=== PATIENT | female | born 1935 | race Caucasian/White ===

== ENCOUNTER 2016-08-07 14:50 | Observation (INO) | payer MEDICARE, BC ==
[2016-08-07] MEDS ORDERED: Diltiazem 25 MG/5 ML SDV IVPUSH ONE (15:24)
--- NOTE | 2016-08-07 15:26 | EDM.PDOC ---
ED HPI GENERAL MEDICAL PROBLEM - General Chief Complaint: Respiratory Problem Stated Complaint: SOB Time Seen by Provider: 08/07/16 15:25 Source of Information: Reports: Patient History Limitations: Reports: Respiratory Distress - History of Present Illness INITIAL COMMENTS - FREE TEXT/NARRATIVE: 81 y.o.w.f. with a h/o CHF, Intermittant a fib with RVR while symbicort inhaler , came by herself to the ed due to SOB. Inhales will not work. As the patient arrived here in the ed, pt was in a fib with RVR, RR was elevated, her Pulse ox was 97% on RA. No CP. Pt takes a Lasix as "needed". Onset: Sudden Onset Date: 08/07/16 Onset Time: 08:00 Duration: Hour(s):, Day(s):, Getting Worse Location: Reports: Chest Quality: Reports: Same as Previous Episode Improves with: Reports: Medication Worsens with: Reports: Movement Associated Symptoms: Reports: Shortness of Breath, Weakness - Related Data Allergies Allergy/AdvReac Type Severity Reaction Status Date / Time No Known Allergies Allergy Verified 08/07/16 15:25 Home Meds: Home Meds Fluticasone Propionate [Flonase] 2 spray INH ASDIRECTED PRN 06/14/13 [History] Albuterol Sulfate [Proair Hfa] 2 puff Q4H PRN 07/26/15 [History] Aspirin [Ecotrin] 325 mg PO DAILY PRN 07/26/15 [History] Budesonide/Formoterol Fumarate [Symbicort 160-4.5 Mcg Inhaler] 2 inh PO BID PRN 08/07/16 [History] Past Medical History HEENT History: Reports: Impaired Vision Cardiovascular History: Reports: Afib, Heart Murmur, Hypertension Other Cardiovascular History: hx 'leaky heart valves' Respiratory History: Reports: Asthma Gastrointestinal History: Reports: Cholelithiasis, Hemorrhoids, Other (See Below ) Other Gastrointestinal History: hx rectal bleeding from hemorrhoids Genitourinary History: Reports: UTI, Recurrent, Other (See Below) Other Genitourinary History: hx prolapsed bladder 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: Musculoskeletal History: Reports: Arthritis, Back Pain, Chronic, Fracture, Osteoarthritis Endocrine/Metabolic History: Reports: Obesity/BMI 30+ Hematologic History: Reports: Anemia, Blood Transfusion(s) - Infectious Disease History Infectious Disease History: Reports: Chicken Pox, Measles - Past Surgical History Female Surgical History: Reports: Hysterectomy, Salpingo-Oophorectomy Musculoskeletal Surgical History: Reports: Hip Replacement, ORIF, Other (See Below) Social & Family History - Family History Family Medical History: Noncontributory - Tobacco Use Smoking Status *Q: Never Smoker Second Hand Smoke Exposure: Yes - Caffeine Use Caffeine Use: Reports: Coffee - Alcohol Use Days Per Week of Alcohol Use: 0 - Recreational Drug Use Recreational Drug Use: No - Living Situation & Occupation Living situation: Reports: Occupation: Retired ED ROS GENERAL - Review of Systems Review Of Systems: See Below Constitutional: Reports: Weakness HEENT: Reports: No Symptoms, Ear Pain Respiratory: Reports: Shortness of Breath Cardiovascular: Reports: Dyspnea on Exertion, Palpitations Endocrine: Reports: No Symptoms GI/Abdominal: Reports: No Symptoms : Reports: No Symptoms Musculoskeletal: Reports: No Symptoms Skin: Reports: No Symptoms Neurological: Reports: No Symptoms Psychiatric: Reports: No Symptoms Hematologic/Lymphatic: Reports: No Symptoms Immunologic: Reports: No Symptoms ED EXAM, GENERAL - Physical Exam Exam: See Below Exam Limited By: No Limitations General Appearance: Alert, WD/WN, Moderate Distress Eye Exam: Bilateral Eye: Normal Inspection Ears: Normal External Exam Ear Exam: Bilateral Ear: Auricle Normal Nose: Normal Inspection Throat/Mouth: Normal Inspection, Normal Lips Head: Atraumatic, Normocephalic Neck: Normal Inspection, Supple Respiratory/Chest: Respiratory Distress, Decreased Breath Sounds, Crackles, Other (Dullness to percussuin R lower lung) Cardiovascular: Normal Peripheral Pulses, Regular Rate, Rhythm, No Edema, No Murmur, Irregularly Irregular Peripheral Pulses: 1+: Femoral (L), Femoral (R) GI/Abdominal: Normal Bowel Sounds, Soft, Non-Tender (Female) Exam: Deferred Rectal (Female) Exam: Deferred Back Exam: Normal Inspection, Full Range of Motion Extremities: Normal Range of Motion, Pedal Edema Neurological: Alert, Oriented, CN II-XII Intact, Normal Cognition Psychiatric: Normal Affect, Normal Mood Skin Exam: Warm, Dry, Intact, Normal Color Lymphatic: No Adenopathy EKG INTERPRETATION EKG Date: 08/07/16 Time: 15:20 Rhythm: A-Fib Rate (Beats/Min): 130 Purdin: Normal P-Wave: Absent QRS: Normal ST-T: Normal QT: Normal Comparison: NA - No Prior EKG EKG Interpretation Comments: After cardiacem was given, rate changed to 85 BPM Irr Irr beat. Course - Vital Signs Text/Narrative:: 81 y.o.w.f. with a h/o CHF, Intermittant a fib with RVR while symbicort inhaler , came by herself to the ed due to SOB. Inhales will not work. As the patient arrived here in the ed, pt was in a fib with RVR, RR was elevated, her Pulse ox was 97% on RA. No CP. Pt takes a Lasix as "needed". No other acute medical issues. PE: A fib with RVR, CHF Impression: CHF, Pleural effusion ECG: A fib with RVR 135 bpm, secon EKG after tx: A fib ith a rate of 85 bpm Labs: BNP 527 Tropnin 0.01 INR 1.16 Impression: A fib with RVR, possibl;e symbicort inh use related, CHF Tx: Cardiacem, Lasix ond O2 Reexam: Inproved Plan: Admit to [facility]. Last Recorded V/S: Last Vital Signs Temp 36.3 C 08/07/16 15:25 Pulse 134 H 08/07/16 15:25 Resp 29 H 08/07/16 15:25 BP 128/84 08/07/16 15:31 Pulse Ox 95 08/07/16 15:25 - Orders/Labs/Meds Orders: Active Orders 24 hr Category Date Time Status EKG Documentation Completion [RC] ASDIRECTED Care 08/07/16 15:14 Active CXR [Chest 1V Frontal] [CR] Stat Exams 08/07/16 15:13 Taken Sodium Chloride 0.9% [Saline Flush] Med 08/07/16 15:32 Active 10 ml FLUSH ASDIRECTED PRN Saline Lock Insert [OM.PC] Routine Oth 08/07/16 15:32 Ordered EKG 12 Lead [EK] Routine Ther 08/07/16 15:13 Ordered Medication Orders Albuterol/Ipratropium (Duoneb 3.0-0.5 Mg/3 Ml) 3 ml INH ONETIME PRN PRN Reason: Shortness Of Breath/wheezing Ondansetron HCl (Zofran) 4 mg IV Q4H PRN PRN Reason: Nausea/Vomiting Sodium Chloride (Saline Flush) 10 ml FLUSH ASDIRECTED PRN PRN Reason: Keep Vein Open Last Admin: 08/07/16 15:34 Dose: 10 ml Admin: 08/07/16 15:33 Dose: 10 ml Sodium Chloride (Saline Flush) 10 ml FLUSH ASDIRECTED PRN PRN Reason: Keep Vein Open Labs: Laboratory Tests 08/07/16 08/07/16 08/07/16 Range/Units 15:30 15:30 15:30 WBC 6.8 (4.5-12.0) X10-3/uL RBC 4.99 (3.23-5.20) x10(6)uL Hgb 14.1 (11.5-15.5) g/dL Hct 42.5 (30.0-51.3) % MCV 85.2 (80-96) fL MCH 28.2 (27.7-33.6) pg MCHC 33.1 (32.2-35.4) g/dL RDW 16.2 H (11.5-15.5) % Plt Count 235 (125-369) X10(3)uL MPV 10.2 (7.4-10.4) fL Neut % (Auto) 80.6 (46-82) % Lymph % (Auto) 9.0 L (13-37) % [place] % (Auto) 6.5 (4-12) % Eos % (Auto) 2 (1.0-5.0) % Baso % (Auto) 2 (0-2) % Neut # (Auto) 5.5 (1.6-8.3) # Lymph # (Auto) 0.6 (0.6-5.0) # [place] # (Auto) 0.4 (0.0-1.3) # Eos # (Auto) 0.2 (0.0-0.8) # Baso # (Auto) 0.1 (0.0-0.2) # PT 11.7 H (8.7-11.1) INR 1.16 H (0.89-1.13) Sodium 138 (135-145) mmol/L Potassium 4.0 (3.5-5.3) mmol/L Chloride 108 (100-110) mmol/L Carbon Dioxide 20 L (23-29) mmol/L BUN 12 (8-23) mg/dL Creatinine 0.7 (0.6-1.3) mg/dL Est Cr Clr Drug Dosing TNP Estimated GFR (MDRD) > 60 (>60) BUN/Creatinine Ratio 17.1 (9-20) Glucose 121 H (80-116) mg/dL Calcium 9.5 (8.6-10.2) mg/dL Troponin I (0.02-0.06) NG/ML B-Natriuretic Peptide (0-100) pg/mL 08/07/16 08/07/16 Range/Units 15:30 15:30 WBC (4.5-12.0) X10-3/uL RBC (3.23-5.20) x10(6)uL Hgb (11.5-15.5) g/dL Hct (30.0-51.3) % MCV (80-96) fL MCH (27.7-33.6) pg MCHC (32.2-35.4) g/dL RDW (11.5-15.5) % Plt Count (125-369) X10(3)uL MPV (7.4-10.4) fL Neut % (Auto) (46-82) % Lymph % (Auto) (13-37) % [place] % (Auto) (4-12) % Eos % (Auto) (1.0-5.0) % Baso % (Auto) (0-2) % Neut # (Auto) (1.6-8.3) # Lymph # (Auto) (0.6-5.0) # [place] # (Auto) (0.0-1.3) # Eos # (Auto) (0.0-0.8) # Baso # (Auto) (0.0-0.2) # PT (8.7-11.1) INR (0.89-1.13) Sodium (135-145) mmol/L Potassium (3.5-5.3) mmol/L Chloride (100-110) mmol/L Carbon Dioxide (23-29) mmol/L BUN (8-23) mg/dL Creatinine (0.6-1.3) mg/dL Est Cr Clr Drug Dosing Estimated GFR (MDRD) (>60) BUN/Creatinine Ratio (9-20) Glucose (80-116) mg/dL Calcium (8.6-10.2) mg/dL Troponin I < 0.01 L (0.02-0.06) NG/ML B-Natriuretic Peptide 521 H (0-100) pg/mL Meds: Medications Generic Name Dose Route Start Last Admin Trade Name Freq PRN Reason Stop Dose Admin Albuterol/Ipratropium 3 ml 08/07/16 15:48 Duoneb 3.0-0.5 Mg/3 Ml INH ONETIME PRN Shortness Of Breath/wheezing Ondansetron HCl 4 mg 08/07/16 15:48 Zofran IV Q4H PRN Nausea/Vomiting Sodium Chloride 10 ml 08/07/16 15:32 08/07/16 15:34 Saline Flush FLUSH 10 ml ASDIRECTED PRN Administration Keep Vein Open Sodium Chloride 10 ml 08/07/16 15:48 Saline Flush FLUSH ASDIRECTED PRN Keep Vein Open Discontinued Medications Generic Name Dose Route Start Last Admin Trade Name Freq PRN Reason Stop Dose Admin Diltiazem HCl 20 mg 08/07/16 15:24 08/07/16 15:31 Diltiazem IVPUSH 08/07/16 15:25 20 mg ONETIME ONE Administration Furosemide 20 mg 08/07/16 16:08 Lasix IVPUSH 08/07/16 16:09 ONETIME ONE Departure - Departure Time of Disposition: 16:00 Disposition: Refer to Observation Condition: Fair Clinical Impression: Atrial fib/flutter, transient, Pleural effusion CHF (congestive heart failure) Qualifiers: Congestive heart failure type: unspecified congestive heart failure type Congestive heart failure chronicity: chronic Qualified Code(s): I50.9 - Heart failure, unspecified - Discharge Information - My Orders Last 24 Hours: My Active Orders 08/07/16 15:13 CXR [Chest 1V Frontal] [CR] Stat EKG 12 Lead [EK] Routine 08/07/16 15:14 EKG Documentation Completion [RC] ASDIRECTED 08/07/16 15:32 Sodium Chloride 0.9% [Saline Flush] 10 ml FLUSH ASDIRECTED PRN Saline Lock Insert [OM.PC] Routine - Assessment/Plan Last 24 Hours: My Active Orders 07/01/17 15:13 CXR [Chest 1V Frontal] [CR] Stat EKG 12 Lead [EK] Routine 08/07/16 15:14 EKG Documentation Completion [RC] ASDIRECTED 08/07/16 15:32 Sodium Chloride 0.9% [Saline Flush] 10 ml FLUSH ASDIRECTED PRN Saline Lock Insert [OM.PC] Routine
[2016-08-07] MEDS: Sodium Chloride 0.9% 10 ML Syringe FLUSH PRN ×2 (15:33→15:34)
[2016-08-07] MEDS ORDERED: Sodium Chloride 0.9% 10 ML Syringe FLUSH PRN (15:48)
[2016-08-07] MEDS ORDERED: Ondansetron 4 MG/2 ML SDV IV PRN (15:48)
[2016-08-07] MEDS ORDERED: Albuterol/Ipratropium 3.0-0.5 MG/3 ML Neb Soln INH PRN (15:48)
[2016-08-07] MEDS ORDERED: Furosemide 20 MG/2 ML VIAL IVPUSH ONE (16:08)
[2016-08-07] MEDS ORDERED: Ciprofloxacin 500 MG Tab PO SCH (21:00)
[2016-08-07] MEDS: Acetaminophen 325 MG Tab PO PRN (22:31)
[2016-08-08] MEDS: Acetaminophen 325 MG Tab PO PRN (02:51)
--- NOTE | 2016-08-08 08:26 | PCM.HP ---
H&P History of Present Illness - General Date of Service: 08/08/16 Admit Problem/Dx: Admission Diagnosis/Problem Admission Diagnosis/Problem Afib, Atrial fibrillation Source of Information: Patient, Old Records - History of Present Illness Initial Comments - Free Text/Narative: 81-year-old female who has a history of asthma. Presented to the ER complaining of shortness of breath. Couple days. Insidious onset note history of any cough. She also has a history of atrial fibrillation and congestive heart failure that has previously been stable and hypertension that is well controlled. She denied any chest pain fever or chills. I saw her in the clinic and started on Symbicort recently but she also uses albuterol inhaler on a daily basis - Related Data Allergies/Adverse Reactions: Allergies Allergy/AdvReac Type Severity Reaction Status Date / Time No Known Allergies Allergy Verified 08/07/16 15:25 Home Medications: Home Meds Fluticasone Propionate [Flonase] 2 spray INH ASDIRECTED PRN 06/14/13 [History] Albuterol Sulfate [Proair Hfa] 2 puff Q4H PRN 07/26/15 [History] Aspirin [Ecotrin] 325 mg PO DAILY PRN 07/26/15 [History] Budesonide/Formoterol Fumarate [Symbicort 160-4.5 Mcg Inhaler] 2 inh PO BID PRN 08/07/16 [History] Past Medical History HEENT History: Reports: Impaired Vision Other HEENT History: Wears reading glasses. Cardiovascular History: Reports: Afib, Heart Murmur, Hypertension Other Cardiovascular History: hx 'leaky heart valves' Respiratory History: Reports: Asthma Other Respiratory History: States she has had asthma since she was a child. 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: Musculoskeletal History: Reports: Arthritis, Back Pain, Chronic, Fracture, Osteoarthritis Neurological History: Reports: None Psychiatric History: Reports: None Endocrine/Metabolic History: Reports: Obesity/BMI 30+ Hematologic History: Reports: Anemia, Blood Transfusion(s) Immunologic History: Reports: None Oncologic (Cancer) History: Reports: None Dermatologic History: Reports: None - Infectious Disease History Infectious Disease History: Reports: Chicken Pox, Measles - Past Surgical History Female Surgical History: Reports: Hysterectomy, Salpingo-Oophorectomy Musculoskeletal Surgical History: Reports: Hip Replacement, ORIF, Other (See Below) Social & Family History - Family History Family Medical History: Noncontributory - Tobacco Use Smoking Status *Q: Never Smoker Second Hand Smoke Exposure: Yes - Caffeine Use Caffeine Use: Reports: Coffee - Alcohol Use Days Per Week of Alcohol Use: 0 - Recreational Drug Use Recreational Drug Use: No - Living Situation & Occupation Living situation: Reports: Occupation: Retired H&P Review of Systems - Review of Systems: Review Of Systems: ROS reveals no pertinent complaints other than HPI. Exam - Exam Exam: See Below - Vital Signs Vital Signs: Last Vital Signs Temp 97.7 F 08/07/16 23:46 Pulse 102 H 08/08/16 05:50 Resp 18 08/08/16 04:00 BP 113/85 08/07/16 23:46 Pulse Ox 99 08/08/16 05:50 Weight: 84.686 kg - Exam Quality Assessment: Supplemental Oxygen General: Alert, Oriented, 4 HEENT: PERRLA, Hearing Intact, Mucosa Moist & [place], Nares Patent, Normal Nasal Septum, Posterior Pharynx Clear, Conjunctiva Clear, EOMI, EACs Clear, TMs Clear Neck: Supple, Trachea Midline, 2 Lungs: Crackles, Rales Cardiovascular: Regular Rate, Regular Rhythm Abdomen: Normal Bowel Sounds, Soft (Female) Exam: Deferred Rectal (Female) Exam: Deferred Back Exam: Normal Inspection, Full Range of Motion, NT Extremities: Edema Skin: Warm, Dry, Intact Neurological: Cranial Nerves Intact, Reflexes Equal Bilateral Neuro Extensive - Mental Status: Alert, Oriented x3, Normal Mood/Affect, Normal Cognition Neuro Extensive - Motor, Sensory, Reflexes: CN II-XII Intact, Normal Gait, Normal Reflexes Psychiatric: Alert, Normal Affect, Normal Mood - Patient Data Lab Results Last 24 hrs: Laboratory Results - last 24 hr 08/07/16 Range/Units 18:40 Urine Color Yellow (YELLOW) Urine Appearance Cloudy (CLEAR) Urine pH 5.0 (5.0-6.5) Ur Specific [place] 1.010 (1.010-1.025) Urine Protein Negative (NEGATIVE) mg/dL Urine Glucose (UA) Normal (NEGATIVE) mg/dL Urine Ketones Negative (NEGATIVE) mg/dL Urine Occult Blood Large H (NEGATIVE) Urine Nitrite Negative (NEGATIVE) Urine Bilirubin Negative (NEGATIVE) Urine Urobilinogen Normal (NEGATIVE) mg/dL Ur Leukocyte Esterase Large H (NEGATIVE) Urine RBC 10-20 H (0) Urine WBC >100 H (0) Ur Squamous Epith Cells Few H (NS,R,O) Urine Bacteria Moderate H (NS) Result Diagrams: 08/07/16 15:30 08/07/16 15:30 Imaging Impressions Last 24 hrs: CXR-effusion L EKG INTERPRETATION Rhythm: A-Fib *Q Meaningful Use (ADM) - VTE *Q VTE Criteria *Q: - Stroke *Q Stroke Criteria *Q: - AMI *Q AMI Criteria *Q: - Problem List (1) Atrial fib/flutter, transient SNOMED Code(s): 155327886 ICD Code: [id number] - Status: Acute Current Visit: Yes (2) HTN (hypertension) SNOMED Code(s): 36277306 ICD Code: I10 - ESSENTIAL (PRIMARY) HYPERTENSION Status: Acute Current Visit: Yes Qualifiers: Hypertension type: essential hypertension Qualified Code(s): I10 - Essential (primary) hypertension (3) Asthma attack SNOMED Code(s): 646491672 ICD Code: J45.901 - UNSPECIFIED ASTHMA WITH (ACUTE) EXACERBATION Status: Acute Current Visit: Yes (4) CHF (congestive heart failure) SNOMED Code(s): 49952807 ICD Code: I50.9 - HEART FAILURE, UNSPECIFIED Status: Acute Current Visit : Yes Qualifiers: Congestive heart failure type: unspecified congestive heart failure type Congestive heart failure chronicity: chronic Qualified Code(s): I50.9 - Heart failure, unspecified Problem List Initiated/Reviewed/Updated: Yes Orders Last 24hrs: Active Orders 24 hr Category Date Time Status Telemetry Monitoring [Cardiac Monitoring] [RC] 00,08,16 Care 08/07/16 15:58 Active CULTURE URINE [RM] Routine Lab 08/07/16 18:40 Received Acetaminophen [Tylenol] Med 08/07/16 22:11 Active 650 mg PO Q4H PRN Ciprofloxacin [Ciprofloxacin HCl] Med 08/07/16 21:00 Active 500 mg PO BID Code Status [Resuscitation Status] Routine Resus Stat 08/07/16 16:09 Ordered EKG 12 Lead [EK] Routine Ther 08/07/16 16:17 Ordered Medication Orders Acetaminophen (Tylenol) 650 mg PO Q4H PRN PRN Reason: Pain/Fever Last Admin: 08/08/16 02:51 Dose: 650 mg Admin: 08/07/16 22:31 Dose: 650 mg Albuterol/Ipratropium (Duoneb 3.0-0.5 Mg/3 Ml) 3 ml INH ONETIME PRN PRN Reason: Shortness Of Breath/wheezing Ciprofloxacin (Ciprofloxacin Hcl) 500 mg PO BID ELLIOT Last Admin: 08/07/16 21:49 Dose: 500 mg Ondansetron HCl (Zofran) 4 mg IV Q4H PRN PRN Reason: Nausea/Vomiting Sodium Chloride (Saline Flush) 10 ml FLUSH ASDIRECTED PRN PRN Reason: Keep Vein Open Last Admin: 08/07/16 15:34 Dose: 10 ml Admin: 08/07/16 15:33 Dose: 10 ml Sodium Chloride (Saline Flush) 10 ml FLUSH ASDIRECTED PRN PRN Reason: Keep Vein Open Assessment/Plan Comment:: My plan is to keep her for another day or so for diuresis, and I'll also start oral prednisone. I will order for TSH, and an echocardiogram to be done perhaps an ambulatory basis. I also discussed anticoagulation and will start the patient on Xarelto.
[2016-08-08] MEDS: Furosemide 20 MG/2 ML VIAL IVPUSH SCH ×2 (09:19→14:25)
[2016-08-08] MEDS: methylPREDNISolone Sodium Succinate 125 MG/2 ML SDV IVPUSH SCH ×2 (09:20→16:30)
[2016-08-08] MEDS: Sodium Chloride 0.9% 10 ML Syringe FLUSH PRN (09:22)
[2016-08-08 13:52] VITALS: BP 111/72
[2016-08-08] MEDS ORDERED: Rivaroxaban 10 MG Tab PO SCH (18:00)
--- NOTE | 2016-08-08 21:29 | DISCH ---
DISCHARGE DATE: 08/08/2016 REASON FOR ADMISSION: 1. Shortness of breath. 2. Asthma. 3. atrial fibrillation. 4. Hypertension. 5. Congestive heart failure. DISCHARGE DIAGNOSES: 1. Shortness of breath. 2. Asthma. 3. atrial fibrillation. 4. Hypertension. 5. Congestive heart failure. BRIEF HISTORY AND HOSPITAL COURSE: An 81-year-old female who was brought in with shortness of breath and cough, known to have asthma, was found to have a CHF and atrial fibrillation with rapid ventricular response, was given Cardizem 1 time, which seemed to help her symptoms, however, the next day, she still had some shortness of breath and chest x-ray revealed pleural effusion thought to be due to CHF. I gave her some Lasix and she diuresed very well. By the afternoon, she still had tachycardia about 150 and she declined all medical interventions. I discharged against medical advice and discharged on Cardizem orally 180 mg and 40 mg of Lasix once a day and Xarelto 20 mg a day. I would like her to see me in the office on Tuesday. I spent more than 35 minutes in the discharge of the patient. /[id number] TON/[place]
--- NOTE | 2016-08-09 11:23 | CR ---
INDICATION: Short of breath. CHEST: Two frontal views, AP upright, were obtained, 08/07/2016, and compared with 02/07/2016 and 07/26/2015, revealing very poor inspiration which emphasizes markings. The heart is enlarged. The upper lung field pulmonary vasculature is prominent. Interstitial and alveolar infiltration is noted, compatible with interstitial and alveolar (acute) pulmonary edema. Bilateral pleural effusions of small size are suggested. The heart is enlarged. The aorta is tortuous and calcified. Overlying EKG leads are noted. IMPRESSION: Findings are compatible with CHF with acute pulmonary edema, although aspiration pneumonia or other etiology cannot be excluded. MTDD
== END 2016-08-08 17:57 | disposition left against medical advice (07) ==
LOC: FB.ED 14:50 → FB.MS 15:48
PROVIDERS: ADMIT Family Medicine; ATTEND Family Medicine
DX: R06.02 Shortness of breath (principal); J45.909 Unspecified asthma, uncomplicated; I48.91 Unspecified atrial fibrillation; I10 Essential (primary) hypertension; I50.9 Heart failure, unspecified; E66.9 Obesity, unspecified; Z79.82 Long term (current) use of aspirin; Z79.899 Other long term (current) drug therapy; Z68.30 Body mass index [BMI] 30.0-30.9, adult; Z90.710 Acquired absence of both cervix and uterus; Z96.649 Presence of unspecified artificial hip joint
CPT/HCPCS: 36415; 71010; 80048; 81001; 83880; 84484; 85025; 85610; 87086; 93005; 96374; 99285; A9270; J1940; J2930; J7050; 96375; 96376; 99220; 99223; G0378; J3490

== ENCOUNTER 2017-02-02 06:36 | Emergency (ER) | payer MEDICARE, BC ==
--- NOTE | 2017-02-02 07:13 | EDM.PDOC ---
ED HPI GENERAL MEDICAL PROBLEM - General Chief Complaint: Gastrointestinal Problem Stated Complaint: RECTAL BLEEDING /AFID Time Seen by Provider: 02/02/17 06:46 Source of Information: Reports: Patient (PV) History Limitations: Reports: No Limitations - History of Present Illness INITIAL COMMENTS - FREE TEXT/NARRATIVE: 81 y.o.w.f with h/o a fib, on ASA, came to the ed because she passed bloody stool all night long. Pt had similar symptoms a year ago when she was transported by EMS to [facility], undergoing a sigmoidoscopy. She was told she has internal Hemorrhoids and received blood transfusions. No procedure or surgery was performed at that time. She was doing fin till last night when she noticed again blood in her stool. No N/V, no Dizziness or lightheadedness or any other acute medical issues. BP 121/83 Tep 34.7 pulse 61 (afib) RR 20 Pulse ox 97% on RA. Onset Date: 02/01/17 Onset Time: 14:00 Duration: Hour(s):, Intermittent Location: Reports: Abdomen Quality: Reports: Other (blood in stool, no pain) Severity: Mild Improves with: Reports: Rest Worsens with: Reports: Movement Context: Reports: Other (rectal pleed?) Associated Symptoms: Reports: No Other Symptoms - Related Data Allergies Allergy/AdvReac Type Severity Reaction Status Date / Time No Known Allergies Allergy Verified 02/02/17 06:45 Home Meds: Home Meds Fluticasone Propionate [Flonase] 2 spray INH ASDIRECTED PRN 06/14/13 [History] Albuterol Sulfate [Proair Hfa] 2 puff Q4H PRN 07/26/15 [History] Aspirin [Ecotrin] 325 mg PO DAILY PRN 07/26/15 [History] Furosemide [Lasix] 40 mg PO DAILY #30 tablet 08/08/16 [Rx] Past Medical History HEENT History: Reports: Impaired Vision, Other (See Below) Other HEENT History: Wears reading glasses. Cardiovascular History: Reports: Afib, Heart Murmur, Hypertension Other Cardiovascular History: hx 'leaky heart valves' Respiratory History: Reports: Asthma, Other (See Below) Other Respiratory History: States she has had asthma since she was a child. 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: Musculoskeletal History: Reports: Arthritis, Back Pain, Chronic, Fracture, Osteoarthritis Neurological History: Reports: None Psychiatric History: Reports: None Endocrine/Metabolic History: Reports: Obesity/BMI 30+ Hematologic History: Reports: Anemia, Blood Transfusion(s) Immunologic History: Reports: None Oncologic (Cancer) History: Reports: None Dermatologic History: Reports: None - Infectious Disease History Infectious Disease History: Reports: Chicken Pox, Measles - Past Surgical History Female Surgical History: Reports: Hysterectomy, Salpingo-Oophorectomy Musculoskeletal Surgical History: Reports: Hip Replacement, ORIF, Other (See Below) Social & Family History - Family History Family Medical History: Noncontributory - Tobacco Use Smoking Status *Q: Never Smoker Second Hand Smoke Exposure: Yes - Caffeine Use Caffeine Use: Reports: Coffee, Tea - Alcohol Use Days Per Week of Alcohol Use: 0 - Recreational Drug Use Recreational Drug Use: No - Living Situation & Occupation Living situation: Reports: Occupation: Retired ED ROS GENERAL - Review of Systems Review Of Systems: See Below Constitutional: Reports: No Symptoms HEENT: Reports: No Symptoms Respiratory: Reports: No Symptoms Cardiovascular: Reports: No Symptoms Endocrine: Reports: No Symptoms GI/Abdominal: Reports: Hematochezia : Reports: No Symptoms Musculoskeletal: Reports: No Symptoms Skin: Reports: No Symptoms Neurological: Reports: No Symptoms Psychiatric: Reports: No Symptoms Hematologic/Lymphatic: Reports: No Symptoms Immunologic: Reports: No Symptoms ED EXAM, GI/ABD - Physical Exam Exam: See Below Exam Limited By: No Limitations General Appearance: Alert, WD/WN, No Apparent Distress Eyes: Bilateral: Normal Appearance Ears: Normal External Exam Nose: Normal Inspection Throat/Mouth: Normal Inspection, Normal Lips Head: Atraumatic, Normocephalic Neck: Normal Inspection, Supple, Non-Tender, Full Range of Motion Respiratory/Chest: No Respiratory Distress, Lungs Clear, Normal Breath Sounds Cardiovascular: Normal Peripheral Pulses, Regular Rate, Rhythm, No Edema, No Gallop GI/Abdominal Exam: Normal Bowel Sounds, Soft, Non-Tender, No Organomegaly (Female) Exam: Deferred Rectal (Female) Exam: Hemorrhoids (external, nonbleeding) Back Exam: Normal Inspection, Full Range of Motion Extremities: Normal Inspection, Normal Range of Motion, Non-Tender, Normal Capillary Refill Neurological: Alert, Oriented, CN II-XII Intact, Normal Cognition, Normal Gait ( walks with walker) Psychiatric: Normal Affect, Normal Mood Skin Exam: Warm, Dry, Intact Lymphatic: No Adenopathy Course - Vital Signs Text/Narrative:: 81 y.o.w.f with h/o a fib, on ASA, came to the ed because she passed bloody stool all night long. Pt had similar symptoms a year ago when she was transported by EMS to [facility], undergoing a sigmoidoscopy. She was told she has internal Hemorrhoids and received blood transfusions. No procedure or surgery was performed at that time. She was doing fin till last night when she noticed again blood in her stool. No N/V, no Dizziness or lightheadedness or any other acute medical issues. BP 121/83 Tep 34.7 pulse 61 (afib)(on arrival) RR 20 Pulse ox 97% on RA. PE: External Hemorrhoids. No active rectal bleed Labs: 13.5 HGB 13.5 HCT 40.5 Impression: External Hemorrhoids, a fib with RVR [phone]) 7.20 am Consultation: Dr. Deutsch, Surgeon: Pt can be seen at the clinic today after 8 am of Tuesday. Reexam: Pt was doing fine here in the ed deciding to see Dr. Deutsch this Tuesday. Plan: D/C with instructions Last Recorded V/S: Last Vital Signs Temp 36.5 C 02/02/17 08:15 Pulse 110 H 02/02/17 08:15 Resp 18 02/02/17 08:15 BP 109/74 02/02/17 08:15 Pulse Ox 96 02/02/17 07:19 - Orders/Labs/Meds Orders: Active Orders 24 hr Category Date Time Status EKG 12 Lead [EK] Routine Ther 02/02/17 07:25 Ordered Labs: Laboratory Tests 02/02/17 02/02/17 02/02/17 Range/Units 07:04 07:04 07:04 WBC 5.4 (4.5-12.0) X10-3/uL RBC 4.59 (3.23-5.20) x10(6)uL Hgb 13.5 (11.5-15.5) g/dL Hct 40.5 (30.0-51.3) % MCV 88.2 (80-96) fL MCH 29.3 (27.7-33.6) pg MCHC 33.2 (32.2-35.4) g/dL RDW 14.8 (11.5-15.5) % Plt Count 202 (125-369) X10(3)uL MPV 9.4 (7.4-10.4) fL Neut % (Auto) 80.0 (46-82) % Lymph % (Auto) 9.2 L (13-37) % [place] % (Auto) 7.0 (4-12) % Eos % (Auto) 2 (1.0-5.0) % Baso % (Auto) 2 (0-2) % Neut # (Auto) 4.3 (1.6-8.3) # Lymph # (Auto) 0.5 L (0.6-5.0) # [place] # (Auto) 0.4 (0.0-1.3) # Eos # (Auto) 0.1 (0.0-0.8) # Baso # (Auto) 0.1 (0.0-0.2) # PT 12.3 H (8.7-11.1) INR 1.22 H (0.89-1.13) Sodium 147 H (135-145) mmol/L Potassium 4.3 (3.5-5.3) mmol/L Chloride 107 (100-110) mmol/L Carbon Dioxide 21 (21-32) mmol/L BUN 12 (7-18) mg/dL Creatinine 0.7 (0.55-1.02) mg/dL Est Cr Clr Drug Dosing 48.16 mL/min Estimated GFR (MDRD) > 60 (>60) BUN/Creatinine Ratio 17.1 (9-20) Glucose 106 (80-116) mg/dL Calcium 9.9 (8.6-10.2) mg/dL Departure - Departure Time of Disposition: 08:05 Disposition: Home, Self-Care 01 Condition: Good Clinical Impression: External hemorrhoids - Discharge Information Referrals: Pawan Elaine MD [Primary Care Provider] - Forms: ED Department Discharge Additional Instructions: Please f/u with Dr. Deutsch at [facility] this am or Tuesday. Please come back to the ed if your symptoms get worse acutely - My Orders Last 24 Hours: My Active Orders 02/02/17 07:25 EKG 12 Lead [EK] Routine - Assessment/Plan Last 24 Hours: My Active Orders 02/02/17 07:25 EKG 12 Lead [EK] Routine
[2017-02-02 11:35] VITALS: BP 109/74
== END 2017-02-02 08:35 | disposition home or self-care (01) ==
LOC: FB.ED 06:36
DX: K64.4 Residual hemorrhoidal skin tags (principal)
CPT/HCPCS: 36415; 80048; 85025; 85610; 93005; 93010; 99283; 99284

== ENCOUNTER 2017-02-03 15:07 | Emergency (ER) | payer MEDICARE, BC ==
[2017-02-03] MEDS ORDERED: Levofloxacin 500 MG Tab PO STA (17:16)
--- NOTE | 2017-02-03 17:26 | EDM.PDOC ---
ED HPI GENERAL MEDICAL PROBLEM - General Chief Complaint: Gastrointestinal Problem Stated Complaint: RECTAL BLEEDING Time Seen by Provider: 02/03/17 15:07 Source of Information: Reports: Patient History Limitations: Reports: No Limitations, Physical Impairment - History of Present Illness INITIAL COMMENTS - FREE TEXT/NARRATIVE: 81 y.o.w.f with H/O ext hemorrhoids and CHF came again to the ed this evening after she was seen by Dr. Deutsch, Surgeon on Tuesday fir her hemorrhoids. Dr. Deutsch did no see an bleed from her ectum and perianal. Pt came back to the ED today because there was a lot of blood in her stool and she felt week. She has some burning when urinating. She lives by herself, her lives 20 minutes away. Pt denies otjher acute medical issues, no N/V/D or dizziness. BP 119/69 pulse 112 RR 22 Temp 36.6 Onset Date: 02/03/17 Onset Time: 12:00 Duration: Intermittent Location: Reports: Back (right flank going to right groin) Quality: Reports: Same as Previous Episode Severity: Mild Improves with: Reports: Rest Worsens with: Reports: Movement Context: Reports: Other (weakness, blood in stool) Associated Symptoms: Reports: No Other Symptoms - Related Data Allergies Allergy/AdvReac Type Severity Reaction Status Date / Time No Known Allergies Allergy Verified 02/03/17 15:18 Home Meds: Home Meds Fluticasone Propionate [Flonase] 2 spray INH ASDIRECTED PRN 06/14/13 [History] Albuterol Sulfate [Proair Hfa] 2 puff Q4H PRN 07/26/15 [History] Aspirin [Ecotrin] 325 mg PO DAILY PRN 07/26/15 [History] Furosemide [Lasix] 40 mg PO DAILY #30 tablet 08/08/16 [Rx] Levofloxacin [Levaquin] 500 mg PO Q24H #10 tablet 02/03/17 [Rx] Past Medical History HEENT History: Reports: Impaired Vision, Other (See Below) Other HEENT History: Wears reading glasses. Cardiovascular History: Reports: Afib, Heart Murmur, Hypertension Other Cardiovascular History: hx 'leaky heart valves' Respiratory History: Reports: Asthma, Other (See Below) Other Respiratory History: States she has had asthma since she was a child. 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: Musculoskeletal History: Reports: Arthritis, Back Pain, Chronic, Fracture, Osteoarthritis Neurological History: Reports: None Psychiatric History: Reports: None Endocrine/Metabolic History: Reports: Obesity/BMI 30+ Hematologic History: Reports: Anemia, Blood Transfusion(s) Immunologic History: Reports: None Oncologic (Cancer) History: Reports: None Dermatologic History: Reports: None - Infectious Disease History Infectious Disease History: Reports: Chicken Pox, Measles - Past Surgical History GI Surgical History: Reports: Appendectomy, Cholecystectomy Female Surgical History: Reports: Hysterectomy, Salpingo-Oophorectomy Musculoskeletal Surgical History: Reports: Hip Replacement, ORIF, Other (See Below) Social & Family History - Family History Family Medical History: Noncontributory - Tobacco Use Smoking Status *Q: Never Smoker Second Hand Smoke Exposure: Yes - Caffeine Use Caffeine Use: Reports: Coffee, Tea - Alcohol Use Days Per Week of Alcohol Use: 0 - Recreational Drug Use Recreational Drug Use: No - Living Situation & Occupation Living situation: Reports: Occupation: Retired ED ROS GENERAL - Review of Systems Review Of Systems: See Below Constitutional: Reports: No Symptoms HEENT: Reports: No Symptoms Respiratory: Reports: No Symptoms Cardiovascular: Reports: No Symptoms Endocrine: Reports: No Symptoms GI/Abdominal: Reports: No Symptoms, Hematochezia : Reports: Dysuria Musculoskeletal: Reports: No Symptoms Skin: Reports: No Symptoms Neurological: Reports: No Symptoms Psychiatric: Reports: No Symptoms Hematologic/Lymphatic: Reports: No Symptoms Immunologic: Reports: No Symptoms ED EXAM, GI/ABD - Physical Exam Exam: See Below Exam Limited By: No Limitations General Appearance: Alert, WD/WN, Mild Distress Eyes: Bilateral: Normal Appearance Ears: Normal External Exam Nose: Normal Inspection Throat/Mouth: Normal Inspection, Normal Lips Head: Atraumatic, Normocephalic Neck: Normal Inspection, Supple, Non-Tender Respiratory/Chest: No Respiratory Distress, Lungs Clear Cardiovascular: Normal Peripheral Pulses, Regular Rate, Rhythm GI/Abdominal Exam: Normal Bowel Sounds, Other (Female) Exam: Deferred Rectal (Female) Exam: Hemorrhoids (external) Back Exam: Normal Inspection, Full Range of Motion Extremities: Normal Inspection, Normal Range of Motion, Non-Tender, No Pedal Edema Neurological: Alert, Oriented, CN II-XII Intact, Normal Cognition Psychiatric: Normal Affect, Normal Mood Skin Exam: Warm, Dry, Intact, Normal Color, No Rash Lymphatic: No Adenopathy Course - Vital Signs Text/Narrative:: 81 y.o.w.f with H/O ext hemorrhoids and CHF came again to the ed this evening after she was seen by Dr. Deutsch, Surgeon on Tuesday fir her hemorrhoids. Dr. Deutsch did no see an bleed from her ectum and perianal. Pt came back to the ED today because there was a lot of blood in her stool and she felt week. She has some burning when urinating. She lives by herself, her lives 20 minutes away. Pt denies otjher acute medical issues, no N/V/D or dizziness. BP 119/69 pulse 112 RR 22 Temp 36.6 PE: WNWD WF Poor insp effort, lungs clear, external Hemorrhoids, no active bleed Labs: UA pos for UTI, CBC and INR 1.25 BMP were nl ProBNP 4456 Imaging (02/02/2017): CXR possible sandra lower lab infiltrate, mild CHF Impression: UTI, CHF(on lasix), gen weakness, external hemorrhoids. Tx: Levoquine Reexam: Improved, Pt refused admission Plan: D/C with instructions Addendum: Called 02/04/2017: Pt says she is doing fine, feels stronger today. Last Recorded V/S: Last Vital Signs Temp 36.5 C 02/03/17 18:46 Pulse 75 02/03/17 18:46 Resp 19 02/03/17 18:46 BP 113/75 02/03/17 18:46 Pulse Ox 99 02/03/17 18:46 - Orders/Labs/Meds Labs: Laboratory Tests 02/03/17 02/03/17 02/03/17 Range/Units 15:30 15:30 15:30 WBC 5.8 (4.5-12.0) X10-3/uL RBC 4.33 (3.23-5.20) x10(6)uL Hgb 12.4 (11.5-15.5) g/dL Hct 38.3 (30.0-51.3) % MCV 88.5 (80-96) fL MCH 28.7 (27.7-33.6) pg MCHC 32.4 (32.2-35.4) g/dL RDW 14.7 (11.5-15.5) % Plt Count 218 (125-369) X10(3)uL MPV 9.7 (7.4-10.4) fL Neut % (Auto) 76.2 (46-82) % Lymph % (Auto) 11.3 L (13-37) % [place] % (Auto) 7.8 (4-12) % Eos % (Auto) 2 (1.0-5.0) % Baso % (Auto) 2 (0-2) % Neut # (Auto) 4.4 (1.6-8.3) # Lymph # (Auto) 0.7 (0.6-5.0) # [place] # (Auto) 0.5 (0.0-1.3) # Eos # (Auto) 0.1 (0.0-0.8) # Baso # (Auto) 0.1 (0.0-0.2) # PT 12.8 H (8.7-11.1) INR 1.26 H (0.89-1.13) Sodium 144 (135-145) mmol/L Potassium 4.1 (3.5-5.3) mmol/L Chloride 108 (100-110) mmol/L Carbon Dioxide 25 (21-32) mmol/L BUN 13 (7-18) mg/dL Creatinine 0.8 (0.55-1.02) mg/dL Est Cr Clr Drug Dosing 42.14 mL/min Estimated GFR (MDRD) > 60 (>60) BUN/Creatinine Ratio 16.3 (9-20) Glucose 117 H (80-116) mg/dL Lactic Acid (0.4-2.2) mmol/L Calcium 9.6 (8.6-10.2) mg/dL NT-Pro-B Natriuret Pep (<=450) pg/mL Urine Color (YELLOW) Urine Appearance (CLEAR) Urine pH (5.0-6.5) Ur Specific [place] (1.010-1.025) Urine Protein (NEGATIVE) mg/dL Urine Glucose (UA) (NEGATIVE) mg/dL Urine Ketones (NEGATIVE) mg/dL Urine Occult Blood (NEGATIVE) Urine Nitrite (NEGATIVE) Urine Bilirubin (NEGATIVE) Urine Urobilinogen (NEGATIVE) mg/dL Ur Leukocyte Esterase (NEGATIVE) Urine RBC (0) Urine WBC (0) Ur Squamous Epith Cells (NS,R,O) Urine Bacteria (NS) Urine Mucus (NS) 02/03/17 02/03/17 02/03/17 Range/Units 15:30 16:30 16:45 WBC (4.5-12.0) X10-3/uL RBC (3.23-5.20) x10(6)uL Hgb (11.5-15.5) g/dL Hct (30.0-51.3) % MCV (80-96) fL MCH (27.7-33.6) pg MCHC (32.2-35.4) g/dL RDW (11.5-15.5) % Plt Count (125-369) X10(3)uL MPV (7.4-10.4) fL Neut % (Auto) (46-82) % Lymph % (Auto) (13-37) % [place] % (Auto) (4-12) % Eos % (Auto) (1.0-5.0) % Baso % (Auto) (0-2) % Neut # (Auto) (1.6-8.3) # Lymph # (Auto) (0.6-5.0) # [place] # (Auto) (0.0-1.3) # Eos # (Auto) (0.0-0.8) # Baso # (Auto) (0.0-0.2) # PT (8.7-11.1) INR (0.89-1.13) Sodium (135-145) mmol/L Potassium (3.5-5.3) mmol/L Chloride (100-110) mmol/L Carbon Dioxide (21-32) mmol/L BUN (7-18) mg/dL Creatinine (0.55-1.02) mg/dL Est Cr Clr Drug Dosing mL/min Estimated GFR (MDRD) (>60) BUN/Creatinine Ratio (9-20) Glucose (80-116) mg/dL Lactic Acid 1.8 (0.4-2.2) mmol/L Calcium (8.6-10.2) mg/dL NT-Pro-B Natriuret Pep 4778 H* (<=450) pg/mL Urine Color Yellow (YELLOW) Urine Appearance Cloudy (CLEAR) Urine pH 5.0 (5.0-6.5) Ur Specific [place] 1.020 (1.010-1.025) Urine Protein Trace (NEGATIVE) mg/dL Urine Glucose (UA) Normal (NEGATIVE) mg/dL Urine Ketones Negative (NEGATIVE) mg/dL Urine Occult Blood Large H (NEGATIVE) Urine Nitrite Negative (NEGATIVE) Urine Bilirubin Negative (NEGATIVE) Urine Urobilinogen 4 H (NEGATIVE) mg/dL Ur Leukocyte Esterase Large H (NEGATIVE) Urine RBC 10-20 H (0) Urine WBC >100 H (0) Ur Squamous Epith Cells Moderate H (NS,R,O) Urine Bacteria Many H (NS) Urine Mucus Moderate H (NS) Meds: Medications Discontinued Medications Generic Name Dose Route Start Last Admin Trade Name Freq PRN Reason Stop Dose Admin Levofloxacin 500 mg 02/03/17 17:16 02/03/17 17:36 Levaquin PO 02/03/17 17:17 500 mg ONETIME STA Administration Departure - Departure Time of Disposition: 18:28 Disposition: Home, Self-Care 01 Condition: Good Clinical Impression: External hemorrhoids UTI (urinary tract infection) Qualifiers: Urinary tract infection type: acute cystitis Hematuria presence: with hematuria Qualified Code(s): N30.01 - Acute cystitis with hematuria - Discharge Information Prescriptions: Levofloxacin [Levaquin] 500 mg PO Q24H #10 tablet Instructions: Urinary Tract Infection, Adult Referrals: Pawan Elaine MD [Primary Care Provider] - Forms: ED Department Discharge Additional Instructions: Please increase water intake, please take to [facility] as recommended. Please f/u, come back if your symptoms get worse acutely
[2017-02-03 18:47] VITALS: BP 113/75
--- NOTE | 2017-02-04 10:38 | CR ---
INDICATION: Short of breath. CHEST: AP upright portable view of the chest revealed the heart to be prominent , the aorta tortuous and calcified. Pulmonary vasculature appears slightly congested, fairly minimal infiltration is seen, but suggestive of possible mild alveolar lung edema, especially in the left mid to lower lung field. Cannot exclude superimposed pneumonia and pleuritis, however, with blunting of costophrenic angles and what appears to be some minimal faint infiltration at the right costophrenic angle and at the left lung base to a greater extent. Lungs appear to be somewhat hyperaerated, suggesting COPD additionally. Dextroconcave scoliosis of the lower thoracic spine is again noted. Calcifications are noted in the arch of the aorta, with tortuosity of the aorta. IMPRESSION: ASHD, mild cardiomegaly, possible mild CHF, and minimal acute pulmonary edema. Cannot exclude superimposed bibasilar pneumonia and pleuritis. MTDD
== END 2017-02-03 18:47 | disposition home or self-care (01) ==
LOC: FB.ED 15:07
DX: K64.4 Residual hemorrhoidal skin tags (principal); N30.01 Acute cystitis with hematuria; I11.0 Hypertensive heart disease with heart failure; I50.9 Heart failure, unspecified; Z77.22 Contact with and (suspected) exposure to environmental tobacco smoke (acute) (chronic); Z79.82 Long term (current) use of aspirin; Z79.899 Other long term (current) drug therapy
CPT/HCPCS: 36415; 71010; 80048; 81001; 83605; 83880; 85025; 85610; 87086; 99283; A9270

== ENCOUNTER 2018-12-08 14:57 | Inpatient (IN) | payer MEDICARE, BC ==
[2018-12-08] MEDS ORDERED: Ondansetron 4 MG Tab.DIS PO PRN (15:44)
[2018-12-08] MEDS ORDERED: Furosemide 40 MG Tab PO PRN (15:48)
[2018-12-08] MEDS ORDERED: Aspirin 325 MG Tab.EC PO PRN (15:48)
[2018-12-08] MEDS ORDERED: Albuterol 8 GM Inhaler INH PRN (15:48)
[2018-12-08] MEDS ORDERED: Acetaminophen 325 MG Tab PO PRN (16:07)
[2018-12-08] MEDS: Metoprolol Tartrate 25 MG Tab PO SCH (16:47)
--- NOTE | 2018-12-08 17:41 | PCM.HP.2 ---
H&P History of Present Illness - General Date of Service: 12/08/18 Admit Problem/Dx: Admission Diagnosis/Problem Admission Diagnosis/Problem Rapid atrial fibrillation Source of Information: Patient History Limitations: Reports: No Limitations - History of Present Illness Initial Comments - Free Text/Narative: This is an 83-year-old female patient saw Dr. Too Peng in the clinic for feeling weak and nauseated. She was found to have rapid atrial fibrillation. She has a history of atrial fibrillation and stopped her digoxin about a month ago. She says she's been having feelings of palpitations off and on and have any symptoms off and on. She denies chest pain, shortness of breath, diaphoresis. She denies any nausea, abdominal pain, diarrhea or constipation. She was transferred by [facility] ambulance for direct admission for rapid atrial fibrillation. - Related Data Allergies/Adverse Reactions: Allergies Allergy/AdvReac Type Severity Reaction Status Date / Time No Known Allergies Allergy Verified 02/03/17 15:18 Home Medications: Home Meds Fluticasone Propionate [Flonase] 2 spray NASBOTH DAILY 06/14/13 [History] Albuterol Sulfate [Proair Hfa] 1 puff IH Q4H PRN 07/26/15 [History] Aspirin [Ecotrin EC] 325 mg PO Q6H PRN 07/26/15 [History] Ciprofloxacin HCl 250 mg PO MO@2100 12/08/18 [History] Digoxin 125 mcg PO DAILY 12/08/18 [History] Furosemide [Lasix] 40 mg PO DAILY PRN 12/08/18 [History] Past Medical History HEENT History: Reports: Impaired Vision, Other (See Below) Other HEENT History: Wears reading glasses. Cardiovascular History: Reports: Afib, Heart Murmur, Hypertension Other Cardiovascular History: hx 'leaky heart valves' Respiratory History: Reports: Asthma, Other (See Below) Other Respiratory History: States she has had asthma since she was a child. Gastrointestinal History: Reports: Cholelithiasis, Hemorrhoids, Other (See Below ) Other Gastrointestinal History: hx rectal bleeding from hemorrhoids Genitourinary History: Reports: UTI, Recurrent, Other (See Below) Other Genitourinary History: hx prolapsed bladder [employer] History: Reports: Musculoskeletal History: Reports: Arthritis, Back Pain, Chronic, Fracture, Osteoarthritis Neurological History: Reports: None Psychiatric History: Reports: None Endocrine/Metabolic History: Reports: Obesity/BMI 30+ Hematologic History: Reports: Anemia, Blood Transfusion(s) Immunologic History: Reports: None Oncologic (Cancer) History: Reports: None Dermatologic History: Reports: None - Infectious Disease History Infectious Disease History: Reports: Chicken Pox, Measles - Past Surgical History Cardiovascular Surgical History: Reports: None GI Surgical History: Reports: Appendectomy, Cholecystectomy Female Surgical History: Reports: Hysterectomy, Salpingo-Oophorectomy Musculoskeletal Surgical History: Reports: Hip Replacement, ORIF, Other (See Below) Social & Family History - Family History Family Medical History: Noncontributory - Tobacco Use Smoking Status *Q: Never Smoker Second Hand Smoke Exposure: No - Caffeine Use Caffeine Use: Reports: Coffee, Tea - Recreational Drug Use Recreational Drug Use: No - Living Situation & Occupation Living situation: Reports: Occupation: Retired H&P Review of Systems - Review of Systems: Review Of Systems: See Below General: Reports: Weakness HEENT: Reports: No Symptoms Pulmonary: Reports: No Symptoms Cardiovascular: Reports: Palpitations Gastrointestinal: Reports: Nausea Genitourinary: Reports: Incontinence Musculoskeletal: Reports: No Symptoms Skin: Reports: No Symptoms Psychiatric: Reports: No Symptoms Neurological: Reports: No Symptoms Hematologic/Lymphatic: Reports: No Symptoms Immunologic: Reports: No Symptoms Exam - Exam Exam: See Below - Vital Signs Vital Signs: Last Vital Signs Temp 99.6 F 12/08/18 14:59 Pulse 130 H 12/08/18 16:47 Resp 24 H 12/08/18 14:59 BP 134/80 12/08/18 16:47 Pulse Ox 94 L 12/08/18 14:59 Weight: 165 lb 4 oz - Exam General: Alert, Oriented, Cooperative HEENT: Hearing Intact, Mucosa Moist & [place], Posterior Pharynx Clear, TMs Clear Neck: Supple, Trachea Midline Lungs: Clear to Auscultation, Normal Respiratory Effort Cardiovascular: Irregular Rhythm, Tachycardia GI/Abdominal Exam: Normal Bowel Sounds, Soft, No Organomegaly, No Distention, No Abnormal Bruit, No Mass, Pelvis Stable Back Exam: Normal Inspection, Full Range of Motion Extremities: Non-Tender, No Pedal Edema Skin: Warm, Intact Neuro Extensive - Mental Status: Alert, Oriented x3, Normal Mood/Affect, Normal Cognition Psychiatric: Alert, Normal Affect, Normal Mood - Patient Data Lab Results Last 24 hrs: Laboratory Results - last 24 hr 12/08/18 12/08/18 12/08/18 Range/Units 16:13 16:13 16:13 WBC 9.6 (4.5-12.0) X10-3/uL RBC 4.60 (3.23-5.20) x10(6)uL Hgb 13.4 (11.5-15.5) g/dL Hct 40.5 (30.0-51.3) % MCV 87.9 (80-96) fL MCH 29.0 (27.7-33.6) pg MCHC 33.0 (32.2-35.4) g/dL RDW 14.7 (11.5-15.5) % Plt Count 250 (125-369) X10(3)uL MPV 8.8 (7.4-10.4) fL Add Manual Diff Yes Neutrophils % (Manual) 87 H (46-82) % Lymphocytes % (Manual) 6 L (13-37) % Monocytes % (Manual) 6 (4-12) % Basophils % (Manual) 1 (0-2) % PT 11.1 (8.7-11.1) INR 1.14 H (0.89-1.13) Sodium 142 (135-145) mmol/L Potassium 4.2 (3.5-5.3) mmol/L Chloride 108 (100-110) mmol/L Carbon Dioxide 26 (21-32) mmol/L BUN 11 (7-18) mg/dL Creatinine 0.8 (0.55-1.02) mg/dL Est Cr Clr Drug Dosing 40.66 mL/min Estimated GFR (MDRD) > 60 (>60) BUN/Creatinine Ratio 13.8 (9-20) Glucose 117 H (80-116) mg/dL Calcium 9.2 (8.6-10.2) mg/dL Total Bilirubin 0.8 (0.1-1.3) mg/dL AST 13 (5-25) IU/L ALT 8 L (12-36) U/L Alkaline Phosphatase 100 (56-112) IU/L Troponin I (<0.017-0.056) ng/mL Total Protein 6.8 (6.0-8.0) g/dL Albumin 3.5 (3.2-4.6) g/dL Globulin 3.3 g/dL Albumin/Globulin Ratio 1.1 12/08/18 Range/Units 16:13 WBC (4.5-12.0) X10-3/uL RBC (3.23-5.20) x10(6)uL Hgb (11.5-15.5) g/dL Hct (30.0-51.3) % MCV (80-96) fL MCH (27.7-33.6) pg MCHC (32.2-35.4) g/dL RDW (11.5-15.5) % Plt Count (125-369) X10(3)uL MPV (7.4-10.4) fL Add Manual Diff Neutrophils % (Manual) (46-82) % Lymphocytes % (Manual) (13-37) % Monocytes % (Manual) (4-12) % Basophils % (Manual) (0-2) % PT (8.7-11.1) INR (0.89-1.13) Sodium (135-145) mmol/L Potassium (3.5-5.3) mmol/L Chloride (100-110) mmol/L Carbon Dioxide (21-32) mmol/L BUN (7-18) mg/dL Creatinine (0.55-1.02) mg/dL Est Cr Clr Drug Dosing mL/min Estimated GFR (MDRD) (>60) BUN/Creatinine Ratio (9-20) Glucose (80-116) mg/dL Calcium (8.6-10.2) mg/dL Total Bilirubin (0.1-1.3) mg/dL AST (5-25) IU/L ALT (12-36) U/L Alkaline Phosphatase (56-112) IU/L Troponin I 0.040 (<0.017-0.056) ng/mL Total Protein (6.0-8.0) g/dL Albumin (3.2-4.6) g/dL Globulin g/dL Albumin/Globulin Ratio Result Diagrams: 12/08/18 16:13 12/08/18 16:13 EKG INTERPRETATION EKG Date: 12/08/18 EKG Interpretation Comments: Rapid atrial fibrillation - Problem List (1) Atrial fibrillation with rapid ventricular response SNOMED Code(s): 688789175510776 ICD Code: I48.91 - UNSPECIFIED ATRIAL FIBRILLATION Status: Acute Current Visit: No Problem List Initiated/Reviewed/Updated: Yes Orders Last 24hrs: Active Orders 24 hr Category Date Time Status Patient Status [ADT] Routine ADT 12/08/18 15:44 Active EKG Documentation Completion [RC] ASDIRECTED Care 12/08/18 17:34 Ordered Height and Weight [RC] DAILY Care 12/08/18 15:44 Active Intake and Output [RC] QSHIFT Care 12/08/18 15:46 Active Oxygen Therapy [RC] PRN Care 12/08/18 15:44 Active Up With Assistance [RC] ASDIRECTED Care 12/08/18 15:44 Active VTE/DVT Education [RC] Per Unit Routine Care 12/08/18 15:44 Active Vital Signs [RC] Q4H Care 12/08/18 15:44 Active Regular Diet [DIET] Diet 12/08/18 Dinner Active TROPONIN I [CHEM] AM Lab 12/09/18 05:11 Ordered TROPONIN I [CHEM] Routine Lab 12/08/18 17:34 Ordered Acetaminophen [Tylenol] Med 12/08/18 16:07 Active 650 mg PO Q4H PRN Albuterol [Ventolin HFA] Med 12/08/18 15:48 Active 0 gm INH Q4H PRN Ciprofloxacin [Ciprofloxacin HCl] Med 12/11/18 21:00 Active 250 mg PO MO@2100 Enoxaparin [Lovenox] Med 12/08/18 17:00 Active 40 mg SUBCUT Q24H Furosemide [Lasix] Med 12/08/18 15:48 Active 40 mg PO DAILY PRN Metoprolol Tartrate [Lopressor] Med 12/08/18 16:00 Active 25 mg PO Q12H Ondansetron [Zofran ODT] Med 12/08/18 15:44 Active 4 mg PO Q4H PRN Sodium Chloride 0.9% [Saline Flush] Med 12/08/18 15:44 Active 10 ml FLUSH ASDIRECTED PRN Peripheral IV Insertion Adult [OM.PC] Routine Oth 12/08/18 15:44 Ordered Sequential Compression Device [OM.PC] Per Unit Routine Oth 12/08/18 15:46 Ordered Resuscitation Status Routine Resus Stat 12/08/18 15:44 Ordered EKG 12 Lead [EK] AM Ther 12/09/18 05:11 Ordered Medication Orders Acetaminophen (Tylenol) 650 mg PO Q4H PRN PRN Reason: PAIN Albuterol (Ventolin Hfa) 0 gm INH Q4H PRN PRN Reason: Dyspnea Ciprofloxacin (Ciprofloxacin Hcl) 250 mg PO MO@2100 [facility] Enoxaparin Sodium (Lovenox) 40 mg SUBCUT Q24H [facility] Furosemide (Lasix) 40 mg PO DAILY PRN PRN Reason: Edema Metoprolol Tartrate (Lopressor) 25 mg PO Q12H [facility] Last Admin: 12/08/18 16:47 Dose: 25 mg Ondansetron HCl (Zofran Odt) 4 mg PO Q4H PRN PRN Reason: nausea, able to take PO Sodium Chloride (Saline Flush) 10 ml FLUSH ASDIRECTED PRN PRN Reason: Keep Vein Open Assessment/Plan Comment:: 1. Admit for inpatient 2. Use by mouth metoprolol bring her rate down and have telemetry. 3. Patient wants to be DNR 4. Regular diet 5. Check chem 12, CBC, troponin. Check EKG and troponin in a.m. 6. Lovenox for VTE full axis. 7. Discussed anticoagulation. She wants to think about it will discuss again tomorrow. - Mortality Measure Prognosis:: Good
[2018-12-08] MEDS ORDERED: Metoprolol Tartrate 25 MG Tab PO ONE (17:58)
[2018-12-08] MEDS: Enoxaparin 40 MG/0.4 ML Syringe SUBCUT SCH (18:18)
[2018-12-09] MEDS: Metoprolol Tartrate 25 MG Tab PO SCH ×2 (03:30→16:52)
[2018-12-09] MEDS: cefTRIAXone 1 GM in Sodium Chloride 0.9% 50 ML IV SCH (03:31)
[2018-12-09] MEDS: Sodium Chloride 0.9% 10 ML Syringe FLUSH PRN (03:35)
--- NOTE | 2018-12-09 08:52 | PCM.PN ---
- General Info Date of Service: 12/09/18 Admission Dx/Problem (Free Text): Patient states she feels much better today. Her strength is back and she denies nausea, shortness of breath or chest pain. - Patient Data Vitals - Most Recent: Last Vital Signs Temp 97.8 F 12/09/18 07:37 Pulse 98 12/09/18 07:37 Resp 20 12/09/18 07:37 BP 108/68 12/09/18 04:00 Pulse Ox 96 12/09/18 07:37 Weight - Most Recent: 167 lb 3.2 oz I&O - Last 24 Hours: Intake & Output 12/08/18 12/09/18 12/09/18 22:59 06:59 14:59 Intake Total 400 Output Total 300 550 Balance -300 -150 Lab Results Last 24 Hours: Laboratory Results - last 24 hr 12/08/18 12/08/18 12/08/18 Range/Units 16:13 16:13 16:13 WBC 9.6 (4.5-12.0) X10-3/uL RBC 4.60 (3.23-5.20) x10(6)uL Hgb 13.4 (11.5-15.5) g/dL Hct 40.5 (30.0-51.3) % MCV 87.9 (80-96) fL MCH 29.0 (27.7-33.6) pg MCHC 33.0 (32.2-35.4) g/dL RDW 14.7 (11.5-15.5) % Plt Count 250 (125-369) X10(3)uL MPV 8.8 (7.4-10.4) fL Add Manual Diff Yes Neutrophils % (Manual) 87 H (46-82) % Lymphocytes % (Manual) 6 L (13-37) % Monocytes % (Manual) 6 (4-12) % Basophils % (Manual) 1 (0-2) % PT 11.1 (8.7-11.1) INR 1.14 H (0.89-1.13) Sodium 142 (135-145) mmol/L Potassium 4.2 (3.5-5.3) mmol/L Chloride 108 (100-110) mmol/L Carbon Dioxide 26 (21-32) mmol/L BUN 11 (7-18) mg/dL Creatinine 0.8 (0.55-1.02) mg/dL Est Cr Clr Drug Dosing 40.66 mL/min Estimated GFR (MDRD) > 60 (>60) BUN/Creatinine Ratio 13.8 (9-20) Glucose 117 H (80-116) mg/dL Calcium 9.2 (8.6-10.2) mg/dL Total Bilirubin 0.8 (0.1-1.3) mg/dL AST 13 (5-25) IU/L ALT 8 L (12-36) U/L Alkaline Phosphatase 100 (56-112) IU/L Troponin I (<0.017-0.056) ng/mL Total Protein 6.8 (6.0-8.0) g/dL Albumin 3.5 (3.2-4.6) g/dL Globulin 3.3 g/dL Albumin/Globulin Ratio 1.1 Urine Color (YELLOW) Urine Appearance (CLEAR) Urine pH (5.0-6.5) Ur Specific [place] (1.010-1.025) Urine Protein (NEGATIVE) mg/dL Urine Glucose (UA) (NORMAL) mg/dL Urine Ketones (NEGATIVE) mg/dL Urine Occult Blood (NEGATIVE) Urine Nitrite (NEGATIVE) Urine Bilirubin (NEGATIVE) Urine Urobilinogen (NEGATIVE) mg/dL Ur Leukocyte Esterase (NEGATIVE) Urine RBC (0-5) Urine WBC (0-5) Ur Squamous Epith Cells (NS,R,O) Urine Bacteria (NS) 12/08/18 12/08/18 12/09/18 Range/Units 16:13 17:34 02:15 WBC (4.5-12.0) X10-3/uL RBC (3.23-5.20) x10(6)uL Hgb (11.5-15.5) g/dL Hct (30.0-51.3) % MCV (80-96) fL MCH (27.7-33.6) pg MCHC (32.2-35.4) g/dL RDW (11.5-15.5) % Plt Count (125-369) X10(3)uL MPV (7.4-10.4) fL Add Manual Diff Neutrophils % (Manual) (46-82) % Lymphocytes % (Manual) (13-37) % Monocytes % (Manual) (4-12) % Basophils % (Manual) (0-2) % PT (8.7-11.1) INR (0.89-1.13) Sodium (135-145) mmol/L Potassium (3.5-5.3) mmol/L Chloride (100-110) mmol/L Carbon Dioxide (21-32) mmol/L BUN (7-18) mg/dL Creatinine (0.55-1.02) mg/dL Est Cr Clr Drug Dosing mL/min Estimated GFR (MDRD) (>60) BUN/Creatinine Ratio (9-20) Glucose (80-116) mg/dL Calcium (8.6-10.2) mg/dL Total Bilirubin (0.1-1.3) mg/dL AST (5-25) IU/L ALT (12-36) U/L Alkaline Phosphatase (56-112) IU/L Troponin I 0.040 0.043 (<0.017-0.056) ng/mL Total Protein (6.0-8.0) g/dL Albumin (3.2-4.6) g/dL Globulin g/dL Albumin/Globulin Ratio Urine Color Yellow (YELLOW) Urine Appearance Cloudy (CLEAR) Urine pH 5.0 (5.0-6.5) Ur Specific [place] 1.010 (1.010-1.025) Urine Protein 30 H (NEGATIVE) mg/dL Urine Glucose (UA) Normal (NORMAL) mg/dL Urine Ketones Negative (NEGATIVE) mg/dL Urine Occult Blood Large H (NEGATIVE) Urine Nitrite Positive H (NEGATIVE) Urine Bilirubin Negative (NEGATIVE) Urine Urobilinogen Normal (NEGATIVE) mg/dL Ur Leukocyte Esterase Large H (NEGATIVE) Urine RBC 10-20 H (0-5) Urine WBC >100 H (0-5) Ur Squamous Epith Cells Moderate H (NS,R,O) Urine Bacteria Many H (NS) 12/09/18 Range/Units 06:03 WBC (4.5-12.0) X10-3/uL RBC (3.23-5.20) x10(6)uL Hgb (11.5-15.5) g/dL Hct (30.0-51.3) % MCV (80-96) fL MCH (27.7-33.6) pg MCHC (32.2-35.4) g/dL RDW (11.5-15.5) % Plt Count (125-369) X10(3)uL MPV (7.4-10.4) fL Add Manual Diff Neutrophils % (Manual) (46-82) % Lymphocytes % (Manual) (13-37) % Monocytes % (Manual) (4-12) % Basophils % (Manual) (0-2) % PT (8.7-11.1) INR (0.89-1.13) Sodium (135-145) mmol/L Potassium (3.5-5.3) mmol/L Chloride (100-110) mmol/L Carbon Dioxide (21-32) mmol/L BUN (7-18) mg/dL Creatinine (0.55-1.02) mg/dL Est Cr Clr Drug Dosing mL/min Estimated GFR (MDRD) (>60) BUN/Creatinine Ratio (9-20) Glucose (80-116) mg/dL Calcium (8.6-10.2) mg/dL Total Bilirubin (0.1-1.3) mg/dL AST (5-25) IU/L ALT (12-36) U/L Alkaline Phosphatase (56-112) IU/L Troponin I 0.039 (<0.017-0.056) ng/mL Total Protein (6.0-8.0) g/dL Albumin (3.2-4.6) g/dL Globulin g/dL Albumin/Globulin Ratio Urine Color (YELLOW) Urine Appearance (CLEAR) Urine pH (5.0-6.5) Ur Specific [place] (1.010-1.025) Urine Protein (NEGATIVE) mg/dL Urine Glucose (UA) (NORMAL) mg/dL Urine Ketones (NEGATIVE) mg/dL Urine Occult Blood (NEGATIVE) Urine Nitrite (NEGATIVE) Urine Bilirubin (NEGATIVE) Urine Urobilinogen (NEGATIVE) mg/dL Ur Leukocyte Esterase (NEGATIVE) Urine RBC (0-5) Urine WBC (0-5) Ur Squamous Epith Cells (NS,R,O) Urine Bacteria (NS) Med Orders - Current: Current Medications Acetaminophen (Tylenol) 650 mg PO Q4H PRN PRN Reason: PAIN Last Admin: 12/09/18 03:30 Dose: 650 mg Albuterol (Ventolin Hfa) 0 gm INH Q4H PRN PRN Reason: Dyspnea Ciprofloxacin (Ciprofloxacin Hcl) 250 mg PO MO@2100 [facility] Enoxaparin Sodium (Lovenox) 40 mg SUBCUT Q24H [facility] Last Admin: 12/08/18 18:18 Dose: 40 mg Furosemide (Lasix) 40 mg PO DAILY PRN PRN Reason: Edema Ceftriaxone Sodium 1 gm/ (Sodium Chloride) 50 mls @ 200 mls/hr IV Q24H [facility] Last Admin: 12/09/18 03:31 Dose: 200 mls/hr Metoprolol Tartrate (Lopressor) 25 mg PO Q12H [facility] Last Admin: 12/09/18 03:30 Dose: 25 mg Ondansetron HCl (Zofran Odt) 4 mg PO Q4H PRN PRN Reason: nausea, able to take PO Sodium Chloride (Saline Flush) 10 ml FLUSH ASDIRECTED PRN PRN Reason: Keep Vein Open Last Admin: 12/09/18 03:35 Dose: 10 ml Discontinued Medications Metoprolol Tartrate (Lopressor) 25 mg PO ONETIME ONE Stop: 12/08/18 17:59 Last Admin: 12/08/18 18:18 Dose: 25 mg - Exam General: Alert, Oriented, Cooperative Lungs: Clear to Auscultation, Normal Respiratory Effort Cardiovascular: Regular Rate, No Murmurs, Irregular Rhythm. No: Tachycardia - Problem List & Annotations (1) Atrial fibrillation with rapid ventricular response SNOMED Code(s): 698837324416053 Code(s): I48.91 - UNSPECIFIED ATRIAL FIBRILLATION Status: Acute Current Visit: No (2) UTI (urinary tract infection) SNOMED Code(s): 35991349 Code(s): N39.0 - URINARY TRACT INFECTION, SITE NOT SPECIFIED Status: Acute Current Visit: Yes Qualifiers: Urinary tract infection type: acute cystitis (3) Palliative care status SNOMED Code(s): 222143620 Code(s): Z51.5 - ENCOUNTER FOR PALLIATIVE CARE Status: Acute Current Visit: Yes - Problem List Review Problem List Initiated/Reviewed/Updated: Yes - My Orders Last 24 Hours: My Active Orders 12/08/18 15:44 Patient Status [ADT] Routine Height and Weight [RC] 06 Oxygen Therapy [RC] PRN Up With Assistance [RC] ASDIRECTED Vital Signs [RC] 08,12,16,20,00,04 Ondansetron [Zofran ODT] 4 mg PO Q4H PRN Sodium Chloride 0.9% [Saline Flush] 10 ml FLUSH ASDIRECTED PRN Peripheral IV Insertion Adult [OM.PC] Routine Resuscitation Status Routine 12/08/18 15:45 Telemetry Monitoring [Cardiac Monitoring] [RC] 08,16,00 12/08/18 15:46 Intake and Output [RC] 06,14,22 Sequential Compression Device [OM.PC] Per Unit Routine 12/08/18 15:48 Albuterol [Ventolin HFA] 0 gm INH Q4H PRN Furosemide [Lasix] 40 mg PO DAILY PRN 12/08/18 16:00 Metoprolol Tartrate [Lopressor] 25 mg PO Q12H 12/08/18 16:07 Acetaminophen [Tylenol] 650 mg PO Q4H PRN 12/08/18 17:00 Enoxaparin [Lovenox] 40 mg SUBCUT Q24H 12/08/18 17:34 EKG Documentation Completion [RC] 52912/08/18 Dinner Regular Diet [DIET] 12/09/18 02:14 CULTURE URINE [RM] Routine 12/09/18 05:11 EKG 12 Lead [EK] AM 12/11/18 21:00 Ciprofloxacin [Ciprofloxacin HCl] 250 mg PO MO@2100 - Plan Plan:: 1. Discussed anticoagulation. I told the patient she is at increased risk of having a stroke according to the Allan Vas scoring. She says she's been told this before and does not want to be on any anticoagulation including Coumadin or the one of the new anticoagulants. She takes aspirin a day was continued to do that. 2. Continue to observe and see if I can keep her rate down at 25 mg metoprolol twice a day. Hopefully her blood pressure comes up a little bit. 3. continue telemetry 4. Ambulate frequently. 5. Start Bactrim DS twice a day for UTI.
[2018-12-09] MEDS: Sulfamethoxazole/Trimethoprim 800-160 MG Tab PO SCH ×2 (09:40→20:26)
[2018-12-09] MEDS: Enoxaparin 40 MG/0.4 ML Syringe SUBCUT SCH (16:52)
[2018-12-10] MEDS: cefTRIAXone 1 GM in Sodium Chloride 0.9% 50 ML IV SCH (03:06)
[2018-12-10] MEDS: Sodium Chloride 0.9% 10 ML Syringe FLUSH PRN (03:08)
[2018-12-10] MEDS: Metoprolol Tartrate 25 MG Tab PO SCH ×4 (03:17→10:28)
--- NOTE | 2018-12-10 08:03 | PCM.PN ---
- General Info Date of Service: 12/10/18 Admission Dx/Problem (Free Text): patient states she's doing well. She denies chest pain, palpitations, shortness of breath or weakness. - Patient Data Vitals - Most Recent: Last Vital Signs Temp 98.1 F 12/10/18 00:00 Pulse 98 12/10/18 00:00 Resp 20 12/10/18 04:00 BP 102/56 L 12/10/18 04:00 Pulse Ox 95 12/10/18 04:00 Weight - Most Recent: 165 lb 4 oz I&O - Last 24 Hours: Intake & Output 12/09/18 12/10/18 12/10/18 23:59 06:59 14:59 Intake Total Output Total Balance Goyo Results Last 24 Hours: Microbiology 12/09/18 02:14 Urine Culture - Preliminary Urine, Clean Catch Gram Negative Rods Med Orders - Current: Current Medications Acetaminophen (Tylenol) 650 mg PO Q4H PRN PRN Reason: PAIN Last Admin: 12/09/18 03:30 Dose: 650 mg Albuterol (Ventolin Hfa) 0 gm INH Q4H PRN PRN Reason: Dyspnea Ciprofloxacin (Ciprofloxacin Hcl) 250 mg PO MO@2100 [facility] Enoxaparin Sodium (Lovenox) 40 mg SUBCUT Q24H [facility] Last Admin: 12/09/18 16:52 Dose: 40 mg Furosemide (Lasix) 40 mg PO DAILY PRN PRN Reason: Edema Ceftriaxone Sodium 1 gm/ (Sodium Chloride) 50 mls @ 200 mls/hr IV Q24H [facility] Last Admin: 12/10/18 03:06 Dose: 200 mls/hr Metoprolol Tartrate (Lopressor) 37.5 mg PO Q12H [facility] Last Admin: 12/10/18 05:22 Dose: 37.5 mg Ondansetron HCl (Zofran Odt) 4 mg PO Q4H PRN PRN Reason: nausea, able to take PO Sodium Chloride (Saline Flush) 10 ml FLUSH ASDIRECTED PRN PRN Reason: Keep Vein Open Last Admin: 12/10/18 03:08 Dose: 10 ml Trimethoprim/Sulfamethoxazole (Septra Ds) 1 tab PO BID [facility] Last Admin: 12/09/18 20:26 Dose: 1 tab Discontinued Medications Metoprolol Tartrate (Lopressor) 25 mg PO Q12H [facility] Last Admin: 12/09/18 03:30 Dose: 25 mg Metoprolol Tartrate (Lopressor) 25 mg PO ONETIME ONE Stop: 12/08/18 17:59 Last Admin: 12/08/18 18:18 Dose: 25 mg - Exam General: Alert, Oriented, Cooperative Neck: Supple Lungs: Clear to Auscultation, Normal Respiratory Effort Cardiovascular: Regular Rate, Irregular Rhythm, Murmurs Extremities: No Pedal Edema - Problem List & Annotations (1) Atrial fibrillation with rapid ventricular response SNOMED Code(s): 005070013985922 Code(s): I48.91 - UNSPECIFIED ATRIAL FIBRILLATION Status: Acute Current Visit: No (2) UTI (urinary tract infection) SNOMED Code(s): 31526540 Code(s): N39.0 - URINARY TRACT INFECTION, SITE NOT SPECIFIED Status: Acute Current Visit: Yes Qualifiers: Urinary tract infection type: acute cystitis (3) Palliative care status SNOMED Code(s): 390635868 Code(s): Z51.5 - ENCOUNTER FOR PALLIATIVE CARE Status: Acute Current Visit: Yes - Problem List Review Problem List Initiated/Reviewed/Updated: Yes - My Orders Last 24 Hours: My Active Orders 12/09/18 09:00 Sulfamethoxazole/Trimethoprim [Septra DS] 1 tab PO BID 12/09/18 17:00 Metoprolol Tartrate [Lopressor] 37.5 mg PO Q12H 12/11/18 21:00 Ciprofloxacin [Ciprofloxacin HCl] 250 mg PO MO@2100 - Plan Plan:: 1. discharge to home on home health. She's requesting St. catheters. Will also have PT/OT see her. 2. We gave her metoprolol 37.5 twice a day couple doses here until her pharmacy can get her medication. 3. Waiting for urine to have culture and sensitivity.
--- NOTE | 2018-12-10 08:27 | PCM.DCSUM1 ---
Discharge Summary - Hospital Course Free Text/Narrative:: Hospital course-patient was put on telemetry and given a 25 mg metoprolol twice a day. She was also found to have a UTI was put on some Rocephin initially and then Bactrim. She has a history of chronic UTIs. Patient's heart rate came down into the 90s and sometimes a little low 100s. I increased her metoprolol to 37.5 mg twice a day maintain a blood pressure systolic over 105. Patient's symptoms this was she had a heart rate down disappeared. She had no palpitations or nausea and her strength came back. We watched her for 2 days and will discharge her. Her urine showed Escherichia coli sensitive to Augmentin resistant to Bactrim. I stopped her digoxin continue her other medications. She'll follow-up with Dr. Elaine in 5 days. I talked her about the risk of stroke since she is at risk is her age risk factors. I told his recommend she be on Coumadin or another but there. She understands this and does not want to do it. I talked about the percentage risk of stroke with her and she still does not want any anticoagulation other than aspirin. Brief History: This is an 83-year-old female patient saw Dr. Too Peng in the clinic for feeling weak and nauseated. She was found to have rapid atrial fibrillation. She has a history of atrial fibrillation and stopped her digoxin about a month ago. She says she's been having feelings of palpitations off and on and have any symptoms off and on. She denies chest pain, shortness of breath , diaphoresis. She denies any nausea, abdominal pain, diarrhea or constipation. She was transferred by [facility] ambulance for direct admission for rapid atrial fibrillation. Diagnosis: Stroke: No - Discharge Data Discharge Date: 12/10/18 Discharge Disposition: Home, W Home Health Agency 06 Condition: Good - Referral to Home Health Date of Face to Face Encounter: 12/10/18 Reason for Homebound Status: 1. Home safety, medication management. Patient is noncompliant. Strengthening, ambulation, managing stairs. Primary Care Physician: PCP None Skilled Need: 1. Home safety, medication management, strengthening, ambulation, ADLs - Discharge Diagnosis/Problem(s) (1) Atrial fibrillation with rapid ventricular response SNOMED Code(s): 034243572653086 ICD Code: I48.91 - UNSPECIFIED ATRIAL FIBRILLATION Status: Acute Current Visit: No (2) UTI (urinary tract infection) SNOMED Code(s): 90318844 ICD Code: N39.0 - URINARY TRACT INFECTION, SITE NOT SPECIFIED Status: Acute Current Visit: Yes Qualifiers: Urinary tract infection type: acute cystitis (3) Palliative care status SNOMED Code(s): 598508747 ICD Code: Z51.5 - ENCOUNTER FOR PALLIATIVE CARE Status: Acute Current Visit: Yes - Patient Instructions Diet: Heart Healthy Diet Activity: As Tolerated Driving: May Drive Today Showering/Bathing: May Shower Notify Provider of: Nausea and/or Vomiting Other/Special Instructions: 1. DC to home on home health. PT/OT. 2. Recheck with Dr. Elaine in 5 days. - Discharge Plan Prescriptions/Med Rec: Amoxicillin/Clavulanate K [Augmentin 500-125 MG] 1 tab PO TID #15 tab Metoprolol Tartrate [Lopressor] 37.5 mg PO Q12H #45 tablet Home Medications: Home Meds Fluticasone Propionate [Flonase] 2 spray NASBOTH DAILY 06/14/13 [History] Albuterol Sulfate [Proair Hfa] 1 puff IH Q4H PRN 07/26/15 [History] Aspirin [Ecotrin EC] 325 mg PO Q6H PRN 07/26/15 [History] Ciprofloxacin HCl 250 mg PO MO@2100 12/08/18 [History] Furosemide [Lasix] 40 mg PO DAILY PRN 12/08/18 [History] Amoxicillin/Clavulanate K [Augmentin 500-125 MG] 1 tab PO TID #15 tab 12/10/18 [ Rx] Metoprolol Tartrate [Lopressor] 37.5 mg PO Q12H #45 tablet 12/10/18 [Rx] - Discharge Summary/Plan Comment DC Time >30 min.: No - Patient Data Vitals - Most Recent: Last Vital Signs Temp 98.1 F 12/10/18 00:00 Pulse 98 12/10/18 00:00 Resp 20 12/10/18 04:00 BP 102/56 L 12/10/18 04:00 Pulse Ox 95 12/10/18 04:00 Weight - Most Recent: 165 lb 4 oz I&O - Last 24 hours: Intake & Output 12/09/18 12/10/18 12/10/18 23:59 06:59 14:59 Intake Total Output Total Balance RAUL Results - Last 24 hrs: Microbiology 12/09/18 02:14 Urine Culture - Final Urine, Clean Catch Escherichia Coli Med Orders - Current: Current Medications Acetaminophen (Tylenol) 650 mg PO Q4H PRN PRN Reason: PAIN Last Admin: 12/09/18 03:30 Dose: 650 mg Albuterol (Ventolin Hfa) 0 gm INH Q4H PRN PRN Reason: Dyspnea Ciprofloxacin (Ciprofloxacin Hcl) 250 mg PO MO@2100 ELLIOT Enoxaparin Sodium (Lovenox) 40 mg SUBCUT Q24H [facility] Last Admin: 12/09/18 16:52 Dose: 40 mg Furosemide (Lasix) 40 mg PO DAILY PRN PRN Reason: Edema Ceftriaxone Sodium 1 gm/ (Sodium Chloride) 50 mls @ 200 mls/hr IV Q24H [facility] Last Admin: 12/10/18 03:06 Dose: 200 mls/hr Metoprolol Tartrate (Lopressor) 37.5 mg PO Q12H [facility] Last Admin: 12/10/18 05:22 Dose: 37.5 mg Ondansetron HCl (Zofran Odt) 4 mg PO Q4H PRN PRN Reason: nausea, able to take PO Sodium Chloride (Saline Flush) 10 ml FLUSH ASDIRECTED PRN PRN Reason: Keep Vein Open Last Admin: 12/10/18 03:08 Dose: 10 ml Trimethoprim/Sulfamethoxazole (Septra Ds) 1 tab PO BID [facility] Last Admin: 12/09/18 20:26 Dose: 1 tab Discontinued Medications Metoprolol Tartrate (Lopressor) 25 mg PO Q12H [facility] Last Admin: 12/09/18 03:30 Dose: 25 mg Metoprolol Tartrate (Lopressor) 25 mg PO ONETIME ONE Stop: 12/08/18 17:59 Last Admin: 12/08/18 18:18 Dose: 25 mg
[2018-12-10] MEDS: Sulfamethoxazole/Trimethoprim 800-160 MG Tab PO SCH (10:20)
[2018-12-10 10:29] VITALS: BP 120/60; PULSE 96
[2018-12-11] MEDS ORDERED: Ciprofloxacin 250 MG Tab PO SCH (21:00)
== END 2018-12-10 10:55 | disposition home health service (06) | DRG 309 ==
LOC: FB.MS 14:57
PROVIDERS: ADMIT Family Medicine; ATTEND Family Medicine
DX: I48.91 Unspecified atrial fibrillation (principal); N30.00 Acute cystitis without hematuria; Z51.5 Encounter for palliative care; Z66 Do not resuscitate; H54.7 Unspecified visual loss; I10 Essential (primary) hypertension; J45.909 Unspecified asthma, uncomplicated; M19.90 Unspecified osteoarthritis, unspecified site; G89.29 Other chronic pain; M54.9 Dorsalgia, unspecified; E66.9 Obesity, unspecified; Z96.649 Presence of unspecified artificial hip joint; B96.20 Unspecified Escherichia coli [E. coli] as the cause of diseases classified elsewhere; Z79.899 Other long term (current) drug therapy; Z79.82 Long term (current) use of aspirin; Z87.440 Personal history of urinary (tract) infections; Z90.49 Acquired absence of other specified parts of digestive tract; Z90.710 Acquired absence of both cervix and uterus; Z68.30 Body mass index [BMI] 30.0-30.9, adult
CPT/HCPCS: 36415; 80053; 81001; 84484; 85025; 85610; 87086; 87088; 87186; 93005; A9270-GY; J0696; J1650; J7050

== ENCOUNTER 2019-02-24 15:01 | Inpatient (IN) | payer MEDICARE, BC ==
[2019-02-24] MEDS ORDERED: Diltiazem 25 MG/5 ML SDV IVPUSH ONE (15:10)
[2019-02-24] MEDS ORDERED: Furosemide 40 MG/4 ML VIAL IVPUSH ONE (15:11)
--- NOTE | 2019-02-24 15:17 | EDM.PDOC ---
ED HPI GENERAL MEDICAL PROBLEM - General Chief Complaint: Respiratory Problem Stated Complaint: SOB Time Seen by Provider: 02/24/19 15:12 Source of Information: Reports: Patient History Limitations: Reports: No Limitations - History of Present Illness INITIAL COMMENTS - FREE TEXT/NARRATIVE: Presents with shortness of breath x 2 days. Patient has a h/o Asthma, Afib, and CHF, does not take her Lasix because she cannot get to the bathroom in time to urinate. Patient had also been on Metoprolol in the past, but discontinued this for unknown reason. She denies chest pain. Does endorse worsening leg edema. Denies cough or fevers. Patient requests DNR/DNI status. Duration: Day(s): (2) Severity: Moderate Improves with: Reports: None - Related Data Allergies Allergy/AdvReac Type Severity Reaction Status Date / Time No Known Allergies Allergy Verified 02/24/19 16:55 Home Meds: Home Meds Albuterol Sulfate [Proair Hfa] 1 puff IH Q4H PRN 07/26/15 [History] Aspirin [Ecotrin EC] 325 mg PO Q6H PRN 07/26/15 [History] Furosemide [Lasix] 40 mg PO DAILY PRN 12/08/18 [History] Past Medical History HEENT History: Reports: Impaired Vision, Other (See Below) Other HEENT History: Wears reading glasses. Cardiovascular History: Reports: Afib, Heart Failure, Heart Murmur, Hypertension Other Cardiovascular History: hx 'leaky heart valves' Respiratory History: Reports: Asthma, Other (See Below) Other Respiratory History: States she has had asthma since she was a child. Gastrointestinal History: Reports: Cholelithiasis, Hemorrhoids, Other (See Below ) Other Gastrointestinal History: hx rectal bleeding from hemorrhoids Genitourinary History: Reports: UTI, Recurrent, Other (See Below) Other Genitourinary History: hx prolapsed bladder [employer] History: Reports: Musculoskeletal History: Reports: Arthritis, Back Pain, Chronic, Fracture, Osteoarthritis Neurological History: Reports: None Psychiatric History: Reports: None Endocrine/Metabolic History: Reports: Obesity/BMI 30+ Hematologic History: Reports: Anemia, Blood Transfusion(s) Immunologic History: Reports: None Oncologic (Cancer) History: Reports: None Dermatologic History: Reports: None - Infectious Disease History Infectious Disease History: Reports: Chicken Pox, Measles - Past Surgical History Cardiovascular Surgical History: Reports: None GI Surgical History: Reports: Appendectomy, Cholecystectomy Female Surgical History: Reports: Hysterectomy, Salpingo-Oophorectomy Musculoskeletal Surgical History: Reports: Hip Replacement, ORIF, Other (See Below) Social & Family History - Family History Family Medical History: Noncontributory - Tobacco Use Tobacco Use Within Last Twelve Months: No - Caffeine Use Caffeine Use: Reports: Coffee, Tea - Living Situation & Occupation Living situation: Reports: Occupation: Retired ED ROS GENERAL - Review of Systems Review Of Systems: Comprehensive ROS is negative, except as noted in HPI. ED EXAM, GENERAL - Physical Exam Exam: See Below Exam Limited By: No Limitations General Appearance: Alert, WD/WN, No Apparent Distress Throat/Mouth: No Airway Compromise Head: Atraumatic, Normocephalic Neck: Full Range of Motion Respiratory/Chest: No Respiratory Distress, Lungs Clear, Normal Breath Sounds Cardiovascular: Tachycardia GI/Abdominal: Non-Tender Back Exam: Full Range of Motion Extremities: Pedal Edema Neurological: Alert, Normal Cognition Psychiatric: Normal Affect, Normal Mood Skin Exam: Warm, Dry, Intact EKG INTERPRETATION EKG Date: 02/24/19 Time: 18:40 Rhythm: A-Fib Rate (Beats/Min): 133 ST-T: Other (Mild ST/T depression lateral leads.) Course - Vital Signs Last Recorded V/S: Last Vital Signs Temp 36.4 C 02/24/19 15:01 Pulse 131 H 02/24/19 15:01 Resp 21 H 02/24/19 15:01 BP 121/90 02/24/19 15:01 Pulse Ox 97 02/24/19 15:01 - Orders/Labs/Meds Orders: Active Orders 24 hr Category Date Time Status EKG Documentation Completion [RC] ASDIRECTED Care 02/24/19 15:02 Active Ang Chest [CT] Stat Exams 02/24/19 16:00 Taken CXR [Chest 1V Frontal] [CR] Stat Exams 02/24/19 15:02 Taken Sodium Chloride 0.9% [Saline Flush] Med 02/24/19 15:05 Active 10 ml FLUSH ASDIRECTED PRN Saline Lock Insert [OM.PC] Routine Oth 02/24/19 15:05 Ordered EKG 12 Lead [EK] Stat Ther 02/24/19 15:02 Ordered Medication Orders Sodium Chloride (Saline Flush) 10 ml FLUSH ASDIRECTED PRN PRN Reason: Keep Vein Open Last Admin: 02/24/19 16:54 Dose: 10 ml Labs: Laboratory Tests 02/24/19 02/24/19 02/24/19 Range/Units 15:15 15:15 15:15 WBC 6.6 (4.5-12.0) X10-3/uL RBC 4.43 (3.23-5.20) x10(6)uL Hgb 12.7 (11.5-15.5) g/dL Hct 38.0 (30.0-51.3) % MCV 85.7 (80-96) fL MCH 28.6 (27.7-33.6) pg MCHC 33.4 (32.2-35.4) g/dL RDW 16.8 H (11.5-15.5) % Plt Count 301 (125-369) X10(3)uL MPV 9.2 (7.4-10.4) fL Neut % (Auto) 80.8 (46-82) % Lymph % (Auto) 11.0 L (13-37) % [place] % (Auto) 5.4 (4-12) % Eos % (Auto) 2 (1.0-5.0) % Baso % (Auto) 1 (0-2) % Neut # (Auto) 5.3 (1.6-8.3) # Lymph # (Auto) 0.7 (0.6-5.0) # [place] # (Auto) 0.4 (0.0-1.3) # Eos # (Auto) 0.1 (0.0-0.8) # Baso # (Auto) 0.1 (0.0-0.2) # PT 12.6 H (8.7-11.1) INR 1.30 H (0.89-1.13) APTT 26.4 (24.4-33.2) SECONDS D-Dimer, Quantitative 1.57 H (0.0-0.59) mg/LFEU Sodium 144 (135-145) mmol/L Potassium 3.9 (3.5-5.3) mmol/L Chloride 107 (100-110) mmol/L Carbon Dioxide 23 (21-32) mmol/L BUN 14 (7-18) mg/dL Creatinine 0.8 (0.55-1.02) mg/dL Est Cr Clr Drug Dosing TNP Estimated GFR (MDRD) > 60 (>60) BUN/Creatinine Ratio 17.5 (9-20) Glucose 113 (80-116) mg/dL Calcium 9.4 (8.6-10.2) mg/dL Magnesium (1.8-2.5) mg/dL Total Bilirubin 1.4 H (0.1-1.3) mg/dL AST 16 D (5-25) IU/L ALT 7 L D (12-36) U/L Alkaline Phosphatase 99 (56-112) IU/L Troponin I (<0.017-0.056) ng/mL NT-Pro-B Natriuret Pep (<=450) pg/mL Total Protein 7.1 (6.0-8.0) g/dL Albumin 3.8 (3.2-4.6) g/dL Globulin 3.3 g/dL Albumin/Globulin Ratio 1.2 02/24/19 02/24/19 02/24/19 Range/Units 15:15 15:15 18:20 WBC (4.5-12.0) X10-3/uL RBC (3.23-5.20) x10(6)uL Hgb (11.5-15.5) g/dL Hct (30.0-51.3) % MCV (80-96) fL MCH (27.7-33.6) pg MCHC (32.2-35.4) g/dL RDW (11.5-15.5) % Plt Count (125-369) X10(3)uL MPV (7.4-10.4) fL Neut % (Auto) (46-82) % Lymph % (Auto) (13-37) % [place] % (Auto) (4-12) % Eos % (Auto) (1.0-5.0) % Baso % (Auto) (0-2) % Neut # (Auto) (1.6-8.3) # Lymph # (Auto) (0.6-5.0) # [place] # (Auto) (0.0-1.3) # Eos # (Auto) (0.0-0.8) # Baso # (Auto) (0.0-0.2) # PT (8.7-11.1) INR (0.89-1.13) APTT (24.4-33.2) SECONDS D-Dimer, Quantitative (0.0-0.59) mg/LFEU Sodium (135-145) mmol/L Potassium (3.5-5.3) mmol/L Chloride (100-110) mmol/L Carbon Dioxide (21-32) mmol/L BUN (7-18) mg/dL Creatinine (0.55-1.02) mg/dL Est Cr Clr Drug Dosing Estimated GFR (MDRD) (>60) BUN/Creatinine Ratio (9-20) Glucose (80-116) mg/dL Calcium (8.6-10.2) mg/dL Magnesium 1.7 L (1.8-2.5) mg/dL Total Bilirubin (0.1-1.3) mg/dL AST (5-25) IU/L ALT (12-36) U/L Alkaline Phosphatase (56-112) IU/L Troponin I 0.142 H* 0.148 H* (<0.017-0.056) ng/mL NT-Pro-B Natriuret Pep 7693 H* (<=450) pg/mL Total Protein (6.0-8.0) g/dL Albumin (3.2-4.6) g/dL Globulin g/dL Albumin/Globulin Ratio Meds: Medications Generic Name Dose Route Start Last Admin Trade Name Freq PRN Reason Stop Dose Admin Sodium Chloride 10 ml 02/24/19 15:05 02/24/19 16:54 Saline Flush FLUSH 10 ml ASDIRECTED PRN Administration Keep Vein Open Discontinued Medications Generic Name Dose Route Start Last Admin Trade Name Freq PRN Reason Stop Dose Admin Diltiazem HCl 20 mg 02/24/19 15:10 02/24/19 15:31 Diltiazem IVPUSH 02/24/19 15:11 20 mg ONETIME ONE Administration Diltiazem HCl 30 mg 02/24/19 15:36 02/24/19 15:46 Cardizem PO 02/24/19 15:37 30 mg ONETIME ONE Administration Furosemide 40 mg 02/24/19 15:11 01/18/20 15:31 Lasix IVPUSH 02/24/19 15:12 40 mg NOW ONE Administration Iopamidol 100 ml 02/24/19 16:21 02/24/19 16:58 Isovue-370 (76%) IV 02/24/19 16:22 100 ml ONETIME ONE Administration - Radiology Interpretation Free Text/Narrative:: CXR: CHF CTA Chest: No pulmonary emboli. Pulmonary edema with moderate to large right and moderate left pleural effusions. Cardiomegaly. Dilatation of the main pulmonary artery may reflect underlying pulmonary hypertension. - Re-Assessments/Exams Free Text/Narrative Re-Assessment/Exam: 02/24/19 18:43 Patient feeling much better. Urinated several times after Lasix 40mg IV. HR 90- 110 after Cardizem 20mg IV and 30mg PO. No complaints of chest pain. Troponin elevated, etiologies include Afib w/ RVR vs. non-stemi. Patient does not want any invasive procedures, requests not to be transferred for HLOC, wishes to remain DNR/DNI. Departure - Departure Time of Disposition: 18:49 Disposition: Admitted As Inpatient 64 Condition: Fair Clinical Impression: Atrial fibrillation with rapid ventricular response, Elevated troponin I level CHF exacerbation Qualifiers: Heart failure type: unspecified Qualified Code(s): I50.9 - Heart failure, unspecified - Discharge Information Referrals: Pawan Elaine MD [Primary Care Provider] - Forms: ED Department Discharge Sepsis Event Note - Focused Exam Vital Signs: Vital Signs Temp Pulse Resp BP Pulse Ox 02/24/19 15:01 36.4 C 131 H 21 H 121/90 97 Date Exam was Performed: 02/24/19 Time Exam was Performed: 18:48 - My Orders Last 24 Hours: My Active Orders 02/24/19 15:02 EKG Documentation Completion [RC] ASDIRECTED CXR [Chest 1V Frontal] [CR] Stat EKG 12 Lead [EK] Stat 02/24/19 15:05 Sodium Chloride 0.9% [Saline Flush] 10 ml FLUSH ASDIRECTED PRN Saline Lock Insert [OM.PC] Routine 02/24/19 16:00 Ang Chest [CT] Stat - Assessment/Plan Last 24 Hours: My Active Orders 02/24/19 15:02 EKG Documentation Completion [RC] ASDIRECTED CXR [Chest 1V Frontal] [CR] Stat EKG 12 Lead [EK] Stat 02/24/19 15:05 Sodium Chloride 0.9% [Saline Flush] 10 ml FLUSH ASDIRECTED PRN Saline Lock Insert [OM.PC] Routine 02/24/19 16:00 Ang Chest [CT] Stat
[2019-02-24] MEDS ORDERED: Diltiazem IR 30 MG Tab PO ONE (15:36)
[2019-02-24] MEDS ORDERED: Iopamidol 755 Mg/ML 100 ML Bottle IV ONE (16:21)
[2019-02-24] MEDS: Sodium Chloride 0.9% 10 ML Syringe FLUSH PRN (16:54)
[2019-02-24] MEDS ORDERED: Albuterol 0.083% 2.5 MG/3 ML Neb Soln NEB PRN (19:38)
[2019-02-24] MEDS: Diltiazem 120 MG Cap.CD PO SCH (20:20)
[2019-02-25] MEDS ORDERED: Furosemide 40 MG/4 ML VIAL IVPUSH SCH ×2 (09:00→21:00)
[2019-02-25] MEDS: Diltiazem 120 MG Cap.CD PO SCH (09:41)
[2019-02-25] MEDS: Potassium Chloride 20 MEQ Tab.ER PO SCH (09:42)
[2019-02-25] MEDS: Aspirin 325 MG Tab.EC PO SCH (09:42)
[2019-02-25] MEDS ORDERED: Furosemide 40 MG/4 ML VIAL IVPUSH ONE (10:22)
[2019-02-25] MEDS: Enoxaparin 30 MG/0.3 ML Syringe SUBCUT SCH (11:08)
[2019-02-25] MEDS: Sodium Chloride 0.9% 10 ML Syringe FLUSH PRN (11:12)
--- NOTE | 2019-02-25 12:03 | PCM.HP.2 ---
H&P History of Present Illness - General Date of Service: 02/25/19 Admit Problem/Dx: Admission Diagnosis/Problem Admission Diagnosis/Problem Atrial fibrillation with rapid ventricular response Source of Information: Patient, Old Records History Limitations: Reports: No Limitations - History of Present Illness Initial Comments - Free Text/Narative: This is an 84-year-old female [place] She said 2 day history of shortness of breath. She's been having leg swelling. She does not take her Lasix as she can't get to the bathroom. She does shortness of breath but denies PND or orthopnea. She denies fevers, chills, chest pain, palpitations. She was given some Lasix in the ER is that helped her legs but then the swelling came back. She has a history of atrial fibrillation and she is tachycardic. pain Pain Score (Numeric/FACES): 3 - Related Data Allergies/Adverse Reactions: Allergies Allergy/AdvReac Type Severity Reaction Status Date / Time No Known Allergies Allergy Verified 02/24/19 19:44 Home Medications: Home Meds Albuterol Sulfate [Proair Hfa] 1 puff IH Q4H PRN 07/26/15 [History] Aspirin [Ecotrin EC] 325 mg PO Q6H PRN 07/26/15 [History] Furosemide [Lasix] 40 mg PO DAILY PRN 12/08/18 [History] Past Medical History HEENT History: Reports: Impaired Vision, Other (See Below) Other HEENT History: Wears reading glasses. Cardiovascular History: Reports: Afib, Heart Failure, Heart Murmur, Hypertension Other Cardiovascular History: hx 'leaky heart valves' Respiratory History: Reports: Asthma, Other (See Below) Other Respiratory History: States she has had asthma since she was a child. Gastrointestinal History: Reports: Cholelithiasis, Hemorrhoids, Other (See Below ) Other Gastrointestinal History: hx rectal bleeding from hemorrhoids Genitourinary History: Reports: UTI, Recurrent, Other (See Below) Other Genitourinary History: hx prolapsed bladder PSYCHOLOGY TECH History: Reports: Other OB/BYN History: Musculoskeletal History: Reports: Arthritis, Back Pain, Chronic, Fracture, Osteoarthritis Neurological History: Reports: None Psychiatric History: Reports: None Endocrine/Metabolic History: Reports: Obesity/BMI 30+ Hematologic History: Reports: Anemia, Blood Transfusion(s) Immunologic History: Reports: None Oncologic (Cancer) History: Reports: None Dermatologic History: Reports: None - Infectious Disease History Infectious Disease History: Reports: Chicken Pox, Measles - Past Surgical History Cardiovascular Surgical History: Reports: None GI Surgical History: Reports: Appendectomy, Cholecystectomy Female Surgical History: Reports: Hysterectomy, Salpingo-Oophorectomy Musculoskeletal Surgical History: Reports: Hip Replacement, ORIF, Other (See Below) Social & Family History - Family History Family Medical History: Noncontributory - Tobacco Use Smoking Status *Q: Never Smoker Second Hand Smoke Exposure: No - Caffeine Use Caffeine Use: Reports: Coffee - Recreational Drug Use Recreational Drug Use: No - Living Situation & Occupation Living situation: Reports: Occupation: Retired H&P Review of Systems - Review of Systems: Review Of Systems: See Below General: Reports: No Symptoms HEENT: Reports: No Symptoms Pulmonary: Reports: Shortness of Breath. Denies: Wheezing, Cough, Sputum, Hemoptysis Cardiovascular: Reports: Dyspnea on Exertion, Edema. Denies: Chest Pain, Palpitations Gastrointestinal: Reports: No Symptoms Genitourinary: Reports: No Symptoms Musculoskeletal: Reports: No Symptoms Skin: Reports: No Symptoms Psychiatric: Reports: No Symptoms Neurological: Reports: No Symptoms Hematologic/Lymphatic: Reports: No Symptoms Immunologic: Reports: No Symptoms Exam - Exam Exam: See Below - Vital Signs Vital Signs: Last Vital Signs Temp 98.0 F 02/25/19 08:00 Pulse 121 H 02/25/19 09:41 Resp 20 02/25/19 08:00 BP 115/64 02/25/19 09:41 Pulse Ox 95 02/25/19 08:00 Weight: 155 lb 3.2 oz - Exam General: Alert, Oriented, Cooperative HEENT: Mucosa Moist & Burnett, Posterior Pharynx Clear, TMs Clear Neck: Supple, Trachea Midline. No: Carotid Bruit Lungs: Clear to Auscultation, Normal Respiratory Effort. No: Decreased Breath Sounds, Crackles, Rales, Rhonchi Cardiovascular: Irregular Rhythm, Tachycardia. No: Normal S2 GI/Abdominal Exam: Normal Bowel Sounds, Soft, Non-Tender, No Organomegaly, No Distention, No Abnormal Bruit, No Mass Back Exam: Normal Inspection, Full Range of Motion Extremities: Normal Inspection, Normal Range of Motion, Pedal Edema Skin: Warm, Dry, Intact Neurological: Normal Speech, Normal Tone Psychiatric: Alert, Normal Affect, Normal Mood - Patient Data Lab Results Last 24 hrs: Laboratory Results - last 24 hr 02/24/19 02/24/19 02/24/19 Range/Units 15:15 15:15 15:15 WBC 6.6 (4.5-12.0) X10-3/uL RBC 4.43 (3.23-5.20) x10(6)uL Hgb 12.7 (11.5-15.5) g/dL Hct 38.0 (30.0-51.3) % MCV 85.7 (80-96) fL MCH 28.6 (27.7-33.6) pg MCHC 33.4 (32.2-35.4) g/dL RDW 16.8 H (11.5-15.5) % Plt Count 301 (125-369) X10(3)uL MPV 9.2 (7.4-10.4) fL Neut % (Auto) 80.8 (46-82) % Lymph % (Auto) 11.0 L (13-37) % Emanuel % (Auto) 5.4 (4-12) % Eos % (Auto) 2 (1.0-5.0) % Baso % (Auto) 1 (0-2) % Neut # (Auto) 5.3 (1.6-8.3) # Lymph # (Auto) 0.7 (0.6-5.0) # Emanuel # (Auto) 0.4 (0.0-1.3) # Eos # (Auto) 0.1 (0.0-0.8) # Baso # (Auto) 0.1 (0.0-0.2) # PT 12.6 H (8.7-11.1) INR 1.30 H (0.89-1.13) APTT 26.4 (24.4-33.2) SECONDS D-Dimer, Quantitative 1.57 H (0.0-0.59) mg/LFEU Sodium 144 (135-145) mmol/L Potassium 3.9 (3.5-5.3) mmol/L Chloride 107 (100-110) mmol/L Carbon Dioxide 23 (21-32) mmol/L BUN 14 (7-18) mg/dL Creatinine 0.8 (0.55-1.02) mg/dL Est Cr Clr Drug Dosing TNP Estimated GFR (MDRD) > 60 (>60) BUN/Creatinine Ratio 17.5 (9-20) Glucose 113 (80-116) mg/dL Calcium 9.4 (8.6-10.2) mg/dL Magnesium (1.8-2.5) mg/dL Total Bilirubin 1.4 H (0.1-1.3) mg/dL AST 16 D (5-25) IU/L ALT 7 L D (12-36) U/L Alkaline Phosphatase 99 (56-112) IU/L Troponin I (<0.017-0.056) ng/mL NT-Pro-B Natriuret Pep (<=450) pg/mL Total Protein 7.1 (6.0-8.0) g/dL Albumin 3.8 (3.2-4.6) g/dL Globulin 3.3 g/dL Albumin/Globulin Ratio 1.2 02/24/19 02/24/19 02/24/19 Range/Units 15:15 15:15 18:20 WBC (4.5-12.0) X10-3/uL RBC (3.23-5.20) x10(6)uL Hgb (11.5-15.5) g/dL Hct (30.0-51.3) % MCV (80-96) fL MCH (27.7-33.6) pg MCHC (32.2-35.4) g/dL RDW (11.5-15.5) % Plt Count (125-369) X10(3)uL MPV (7.4-10.4) fL Neut % (Auto) (46-82) % Lymph % (Auto) (13-37) % Emanuel % (Auto) (4-12) % Eos % (Auto) (1.0-5.0) % Baso % (Auto) (0-2) % Neut # (Auto) (1.6-8.3) # Lymph # (Auto) (0.6-5.0) # Emanuel # (Auto) (0.0-1.3) # Eos # (Auto) (0.0-0.8) # Baso # (Auto) (0.0-0.2) # PT (8.7-11.1) INR (0.89-1.13) APTT (24.4-33.2) SECONDS D-Dimer, Quantitative (0.0-0.59) mg/LFEU Sodium (135-145) mmol/L Potassium (3.5-5.3) mmol/L Chloride (100-110) mmol/L Carbon Dioxide (21-32) mmol/L BUN (7-18) mg/dL Creatinine (0.55-1.02) mg/dL Est Cr Clr Drug Dosing Estimated GFR (MDRD) (>60) BUN/Creatinine Ratio (9-20) Glucose (80-116) mg/dL Calcium (8.6-10.2) mg/dL Magnesium 1.7 L (1.8-2.5) mg/dL Total Bilirubin (0.1-1.3) mg/dL AST (5-25) IU/L ALT (12-36) U/L Alkaline Phosphatase (56-112) IU/L Troponin I 0.142 H* 0.148 H* (<0.017-0.056) ng/mL NT-Pro-B Natriuret Pep 7693 H* (<=450) pg/mL Total Protein (6.0-8.0) g/dL Albumin (3.2-4.6) g/dL Globulin g/dL Albumin/Globulin Ratio 02/25/19 02/25/19 02/25/19 Range/Units 06:55 06:55 06:55 WBC 6.7 (4.5-12.0) X10-3/uL RBC 4.38 (3.23-5.20) x10(6)uL Hgb 12.5 (11.5-15.5) g/dL Hct 37.5 (30.0-51.3) % MCV 85.6 (80-96) fL MCH 28.5 (27.7-33.6) pg MCHC 33.4 (32.2-35.4) g/dL RDW 17.0 H (11.5-15.5) % Plt Count 277 (125-369) X10(3)uL MPV 9.1 (7.4-10.4) fL Neut % (Auto) 82.2 H (46-82) % Lymph % (Auto) 7.9 L (13-37) % Emanuel % (Auto) 7.3 (4-12) % Eos % (Auto) 2 (1.0-5.0) % Baso % (Auto) 1 (0-2) % Neut # (Auto) 5.4 (1.6-8.3) # Lymph # (Auto) 0.5 L (0.6-5.0) # Emanuel # (Auto) 0.5 (0.0-1.3) # Eos # (Auto) 0.1 (0.0-0.8) # Baso # (Auto) 0.1 (0.0-0.2) # PT (8.7-11.1) INR (0.89-1.13) APTT (24.4-33.2) SECONDS D-Dimer, Quantitative (0.0-0.59) mg/LFEU Sodium 145 (135-145) mmol/L Potassium 3.8 (3.5-5.3) mmol/L Chloride 106 (100-110) mmol/L Carbon Dioxide 29 (21-32) mmol/L BUN 12 (7-18) mg/dL Creatinine 0.8 (0.55-1.02) mg/dL Est Cr Clr Drug Dosing 39.92 Estimated GFR (MDRD) > 60 (>60) BUN/Creatinine Ratio 15.0 (9-20) Glucose 103 (80-116) mg/dL Calcium 9.4 (8.6-10.2) mg/dL Magnesium (1.8-2.5) mg/dL Total Bilirubin (0.1-1.3) mg/dL AST (5-25) IU/L ALT (12-36) U/L Alkaline Phosphatase (56-112) IU/L Troponin I 0.131 H* (<0.017-0.056) ng/mL NT-Pro-B Natriuret Pep (<=450) pg/mL Total Protein (6.0-8.0) g/dL Albumin (3.2-4.6) g/dL Globulin g/dL Albumin/Globulin Ratio Result Diagrams: 02/25/19 06:55 02/25/19 06:55 Sepsis Event Note - Evaluation Sepsis Screening Result: No Definite Risk - Focused Exam Vital Signs: Vital Signs Temp Pulse Pulse Resp BP BP Pulse Ox 02/25/19 09:41 121 H 115/64 02/25/19 08:00 98.0 F 121 H 20 115/64 95 02/25/19 02:00 97.5 F 114 H 20 101/71 93 L Date Exam was Performed: 02/25/19 Time Exam was Performed: 11:58 - Problem List (1) Atrial fibrillation with rapid ventricular response SNOMED Code(s): 336390479072944 ICD Code: I48.91 - UNSPECIFIED ATRIAL FIBRILLATION Status: Acute Current Visit: Yes (2) CHF exacerbation SNOMED Code(s): 707093028, 94626949188178 ICD Code: I50.9 - HEART FAILURE, UNSPECIFIED Status: Acute Current Visit : Yes Qualifiers: Heart failure type: unspecified Qualified Code(s): I50.9 - Heart failure, unspecified (3) Elevated troponin I level SNOMED Code(s): 040165367 ICD Code: R79.89 - OTHER SPECIFIED ABNORMAL FINDINGS OF BLOOD CHEMISTRY Status: Acute Current Visit: Yes (4) Palliative care status SNOMED Code(s): 516889608 ICD Code: Z51.5 - ENCOUNTER FOR PALLIATIVE CARE Status: Acute Current Visit: Yes Problem List Initiated/Reviewed/Updated: Yes Orders Last 24hrs: Active Orders 24 hr Category Date Time Status Admission Status [Patient Status] [ADT] Routine ADT 02/24/19 18:54 Active Ambulate [RC] PER UNIT ROUTINE Care 02/24/19 19:32 Active Cardiac Monitoring [RC] CONTINUOUS Care 02/24/19 19:32 Active EKG Documentation Completion [RC] 06 Care 02/24/19 19:33 Active EKG Documentation Completion [RC] AM Care 02/24/19 19:31 Active EKG Documentation Completion [RC] ASDIRECTED Care 02/24/19 15:02 Active Height and Weight [RC] 06 Care 02/24/19 19:31 Active Intake and Output [RC] 06,14,22 Care 02/24/19 19:31 Active Oxygen Therapy [RC] PRN Care 02/24/19 19:31 Active Pulse Oximetry [RC] CONTINUOUS Care 02/24/19 19:32 Active RT Aerosol Therapy [RC] ASDIRECTED Care 02/24/19 19:38 Active Up With Assistance [RC] ASDIRECTED Care 02/24/19 19:31 Active VTE/DVT Education [RC] Per Unit Routine Care 02/24/19 19:31 Active Vital Signs [RC] QSHIFT Care 02/24/19 19:31 Active Heart Healthy Diet [DIET] Diet 02/25/19 Breakfast Active Ang Chest [CT] Stat Exams 02/24/19 16:00 Taken CXR [Chest 1V Frontal] [CR] Stat Exams 02/24/19 15:02 Taken Albuterol [Proventil Neb Soln] Med 02/24/19 19:38 Active 2.5 mg NEB Q4H PRN Aspirin [Ecotrin] Med 02/25/19 09:00 Active 325 mg PO DAILY Diltiazem [Cardizem CD] Med 02/24/19 19:45 Active 120 mg PO DAILY Enoxaparin [Lovenox] Med 02/25/19 10:30 Active 30 mg SUBCUT Q24H Potassium Chloride [Klor-Con M20] Med 02/25/19 09:00 Active 20 meq PO DAILY Sodium Chloride 0.9% [Saline Flush] Med 02/24/19 15:05 Active 10 ml FLUSH ASDIRECTED PRN Saline Lock Insert [OM.PC] Routine Oth 02/24/19 15:05 Ordered Resuscitation Status Routine Resus Stat 02/24/19 19:31 Ordered EKG 12 Lead [EK] AM Ther 02/25/19 05:11 Ordered EKG 12 Lead [EK] Stat Ther 02/24/19 15:02 Ordered Medication Orders Albuterol (Proventil Neb Soln) 2.5 mg NEB Q4H PRN PRN Reason: Shortness of Breath Last Admin: 02/24/19 21:43 Dose: 2.5 mg Aspirin (Ecotrin) 325 mg PO DAILY [facility] Last Admin: 02/25/19 09:42 Dose: 325 mg Diltiazem HCl (Cardizem Cd) 120 mg PO DAILY [facility] Last Admin: 02/25/19 09:41 Dose: 120 mg Admin: 02/24/19 20:20 Dose: 120 mg Enoxaparin Sodium (Lovenox) 30 mg SUBCUT Q24H [facility] Last Admin: 02/25/19 11:08 Dose: 30 mg Potassium Chloride (Klor-Con M20) 20 meq PO DAILY [facility] Last Admin: 02/25/19 09:42 Dose: 20 meq Sodium Chloride (Saline Flush) 10 ml FLUSH ASDIRECTED PRN PRN Reason: Keep Vein Open Last Admin: 02/25/19 11:12 Dose: 10 ml Admin: 02/24/19 16:54 Dose: 10 ml Assessment/Plan Comment:: 1. Admit for inpatient. 2. IV Lasix. 3. Will discuss with the patient whether she was Lanoxin or metoprolol for rate control. 4. Up with assist 5. Continue other regular medications. 6. Low-salt diet 7. Repeat troponin and EKG 8. Telemetry 9. Lovenox for VTE prophylaxis - Mortality Measure Prognosis:: Good
[2019-02-25] MEDS ORDERED: Diltiazem IR 60 MG Tab PO ONE (17:54)
[2019-02-25] MEDS ORDERED: Diltiazem IR 30 MG Tab ONE (18:31)
--- NOTE | 2019-02-26 08:30 | PCM.PN ---
- General Info Date of Service: 02/26/19 Admission Dx/Problem (Free Text): Patient states her breathing was a little bit better until this morning. Her leg swelling is about the same maybe a little bit better. She says her chest feels better and she has more energy. She denies palpitations or chest pain. - Patient Data Vitals - Most Recent: Last Vital Signs Temp 97.7 F 02/26/19 01:00 Pulse 99 02/26/19 01:00 Resp 20 02/26/19 01:00 BP 96/58 L 02/26/19 01:00 Pulse Ox 93 L 02/26/19 01:00 Weight - Most Recent: 154 lb 8 oz I&O - Last 24 Hours: Intake & Output 02/25/19 02/26/19 02/26/19 22:59 06:59 14:59 Output Total 700 300 Balance -700 -300 Lab Results Last 24 Hours: Laboratory Results - last 24 hr 02/25/19 Range/Units 15:30 Troponin I 0.109 H* (<0.017-0.056) ng/mL Med Orders - Current: Current Medications Albuterol (Proventil Neb Soln) 2.5 mg NEB Q4H PRN PRN Reason: Shortness of Breath Last Admin: 02/24/19 21:43 Dose: 2.5 mg Aspirin (Ecotrin) 325 mg PO DAILY [facility] Last Admin: 02/25/19 09:42 Dose: 325 mg Diltiazem HCl (Cardizem Cd) 180 mg PO DAILY [facility] Enoxaparin Sodium (Lovenox) 30 mg SUBCUT Q24H [facility] Last Admin: 02/25/19 11:08 Dose: 30 mg Furosemide (Lasix) 60 mg PO BIDDIURETIC [facility] Potassium Chloride (Klor-Con M20) 20 meq PO DAILY [facility] Last Admin: 02/25/19 09:42 Dose: 20 meq Sodium Chloride (Saline Flush) 10 ml FLUSH ASDIRECTED PRN PRN Reason: Keep Vein Open Last Admin: 02/25/19 11:12 Dose: 10 ml Discontinued Medications Diltiazem HCl (Diltiazem) 20 mg IVPUSH ONETIME ONE Stop: 02/24/19 15:11 Last Admin: 02/24/19 15:31 Dose: 20 mg Diltiazem HCl (Cardizem) 30 mg PO ONETIME ONE Stop: 02/24/19 15:37 Last Admin: 02/24/19 15:46 Dose: 30 mg Diltiazem HCl (Cardizem Cd) 120 mg PO DAILY [facility] Last Admin: 02/25/19 09:41 Dose: 120 mg Diltiazem HCl (Cardizem) 60 mg PO ONETIME ONE Stop: 02/25/19 17:55 Last Admin: 02/25/19 18:36 Dose: Not Given Diltiazem HCl (Cardizem) Confirm Administered Dose 60 mg .ROUTE .STK-MED ONE Stop: 02/25/19 18:32 Last Admin: 02/25/19 18:35 Dose: 60 mg Furosemide (Lasix) 40 mg IVPUSH NOW ONE Stop: 02/24/19 15:12 Last Admin: 02/24/19 15:31 Dose: 40 mg Furosemide (Lasix) 40 mg IVPUSH DAILY [facility] Last Admin: 02/25/19 11:09 Dose: Not Given Furosemide (Lasix) 40 mg IVPUSH BID [facility] Furosemide (Lasix) 80 mg IVPUSH NOW ONE Stop: 02/25/19 10:23 Last Admin: 02/25/19 11:08 Dose: 80 mg Iopamidol (Isovue-370 (76%)) 100 ml IV ONETIME ONE Stop: 02/24/19 16:22 Last Admin: 02/24/19 16:58 Dose: 100 ml - Exam General: Alert, Oriented, Cooperative Lungs: Clear to Auscultation, Normal Respiratory Effort. No: Crackles, Rales, Rhonchi Cardiovascular: No Murmurs, Irregular Rhythm, Tachycardia Extremities: Pedal Edema Skin: Warm, Dry, Intact Psy/Mental Status: Alert, Normal Affect, Normal Mood Sepsis Event Note - Evaluation Sepsis Screening Result: No Definite Risk - Focused Exam Vital Signs: Vital Signs Temp Pulse Resp BP Pulse Ox 02/26/19 01:00 97.7 F 99 20 96/58 L 93 L Date Exam was Performed: 02/26/19 Time Exam was Performed: 08:28 - Problem List & Annotations (1) Atrial fibrillation with rapid ventricular response SNOMED Code(s): 583555803742875 Code(s): I48.91 - UNSPECIFIED ATRIAL FIBRILLATION Status: Acute Current Visit: Yes (2) CHF exacerbation SNOMED Code(s): 099485076, 85159770995873 Code(s): I50.9 - HEART FAILURE, UNSPECIFIED Status: Acute Current Visit: Yes Qualifiers: Heart failure type: unspecified Qualified Code(s): I50.9 - Heart failure, unspecified (3) Elevated troponin I level SNOMED Code(s): 674984603 Code(s): R79.89 - OTHER SPECIFIED ABNORMAL FINDINGS OF BLOOD CHEMISTRY Status: Acute Current Visit: Yes (4) Palliative care status SNOMED Code(s): 209206741 Code(s): Z51.5 - ENCOUNTER FOR PALLIATIVE CARE Status: Acute Current Visit: Yes (5) Pleural effusion SNOMED Code(s): 53001106 Code(s): J90 - PLEURAL EFFUSION, NOT ELSEWHERE CLASSIFIED Status: Acute Current Visit: Yes - Problem List Review Problem List Initiated/Reviewed/Updated: Yes - My Orders Last 24 Hours: My Active Orders 02/25/19 10:30 Enoxaparin [Lovenox] 30 mg SUBCUT Q24H 02/25/19 15:30 EKG 12 Lead [EK] Routine 02/26/19 08:26 Consult to Occupational Therapy [OT Evaluation and Treatment] [CONS] Routine Consult to Physical Therapy [PT Evaluation and Treatment] [CONS] Routine 02/26/19 08:27 Echo Comp wo Cont [US] Routine 02/26/19 08:30 Furosemide [Lasix] 60 mg PO BIDDIURETIC 02/26/19 09:00 Diltiazem [Cardizem CD] 180 mg PO DAILY lisinopriL [Prinivil] 5 mg PO DAILY - Plan Plan:: 1. Lasix 40 mg by mouth twice a day. 2. Cardizem 180 XL 3. continue telemetry 4. PT/OT elations 5. Echocardiogram 6. Start a low-dose CHARLES inhibitor
[2019-02-26] MEDS ORDERED: Lisinopril 5 MG Tab PO SCH (09:00)
[2019-02-26] MEDS: Furosemide 20 MG Tab PO SCH ×2 (09:04→14:03)
[2019-02-26] MEDS: Diltiazem 180 MG Cap.CD PO SCH (09:05)
[2019-02-26] MEDS: Enoxaparin 30 MG/0.3 ML Syringe SUBCUT SCH (10:39)
[2019-02-26] MEDS: Potassium Chloride 20 MEQ Tab.ER PO SCH (10:39)
[2019-02-26] MEDS: Aspirin 325 MG Tab.EC PO SCH (10:39)
--- NOTE | 2019-02-26 12:40 | CR ---
INDICATION: Short of breath. CHEST, 1 VIEW: An AP upright view of the chest portable was obtained 02/24/19 and compared with 02/03/17 at 08/07/16. The heart is enlarged. Pulmonary vasculature is prominent. Interstitial markings are prominent. Small bilateral pleural effusions are suggested. Findings are compatible with CHF with interstitial lung edema and small pleural effusions. However, the possibility of minimal patchy pneumonia and pleuritis, especially at the lung bases and mid-lung borjas, cannot be excluded. Overlying EKG leads are noted. Somewhat diminished bone density is suggested compatible with osteoporosis - correlate clinically. Mild dextroconvex scoliosis of the thoracolumbar is noted. IMPRESSION: Findings suggest CHF with interstitial lung edema and minimal pleural parenchymal changes at the lung bases, which may represent minimal patchy bronchopneumonia as well as be secondary to CHF. MTDD
[2019-02-27] MEDS: Furosemide 20 MG Tab PO SCH (07:53)
--- NOTE | 2019-02-27 08:47 | PCM.PN ---
- General Info Date of Service: 02/27/19 Admission Dx/Problem (Free Text): This is an 84-year-old female patient who states her breathing is much better. She's distally in bed last night and also send the chair and she didn'tpositive breathing. Leg swelling is down but still little bit swollen. She denies any chest pain or palpitations. - Patient Data Vitals - Most Recent: Last Vital Signs Temp 97.6 F 02/27/19 00:00 Pulse 102 H 02/27/19 00:00 Resp 20 02/27/19 00:00 BP 120/54 L 02/27/19 00:00 Pulse Ox 97 02/27/19 00:00 Weight - Most Recent: 154 lb 8 oz I&O - Last 24 Hours: Intake & Output 02/26/19 02/27/19 02/27/19 22:59 06:59 14:59 Output Total 150 200 Balance -150 -200 Med Orders - Current: Current Medications Albuterol (Proventil Neb Soln) 2.5 mg NEB Q4H PRN PRN Reason: Shortness of Breath Last Admin: 02/24/19 21:43 Dose: 2.5 mg Aspirin (Ecotrin) 325 mg PO DAILY [facility] Last Admin: 02/26/19 10:39 Dose: 325 mg Diltiazem HCl (Cardizem Cd) 180 mg PO DAILY [facility] Last Admin: 02/26/19 09:05 Dose: 180 mg Enoxaparin Sodium (Lovenox) 30 mg SUBCUT Q24H [facility] Last Admin: 02/26/19 10:39 Dose: 30 mg Furosemide (Lasix) 40 mg PO BIDDIURETIC [facility] Potassium Chloride (Klor-Con M20) 20 meq PO DAILY [facility] Last Admin: 02/26/19 10:39 Dose: 20 meq Sodium Chloride (Saline Flush) 10 ml FLUSH ASDIRECTED PRN PRN Reason: Keep Vein Open Last Admin: 02/25/19 11:12 Dose: 10 ml Discontinued Medications Diltiazem HCl (Diltiazem) 20 mg IVPUSH ONETIME ONE Stop: 02/24/19 15:11 Last Admin: 02/24/19 15:31 Dose: 20 mg Diltiazem HCl (Cardizem) 30 mg PO ONETIME ONE Stop: 02/24/19 15:37 Last Admin: 02/24/19 15:46 Dose: 30 mg Diltiazem HCl (Cardizem Cd) 120 mg PO DAILY [facility] Last Admin: 02/25/19 09:41 Dose: 120 mg Diltiazem HCl (Cardizem) 60 mg PO ONETIME ONE Stop: 02/25/19 17:55 Last Admin: 02/25/19 18:36 Dose: Not Given Diltiazem HCl (Cardizem) Confirm Administered Dose 60 mg .ROUTE .STK-MED ONE Stop: 02/25/19 18:32 Last Admin: 02/25/19 18:35 Dose: 60 mg Furosemide (Lasix) 40 mg IVPUSH NOW ONE Stop: 02/24/19 15:12 Last Admin: 02/24/19 15:31 Dose: 40 mg Furosemide (Lasix) 40 mg IVPUSH DAILY [facility] Last Admin: 02/25/19 11:09 Dose: Not Given Furosemide (Lasix) 40 mg IVPUSH BID [facility] Furosemide (Lasix) 80 mg IVPUSH NOW ONE Stop: 02/25/19 10:23 Last Admin: 02/25/19 11:08 Dose: 80 mg Furosemide (Lasix) 60 mg PO BIDDIURETIC [facility] Last Admin: 02/27/19 07:53 Dose: 60 mg Iopamidol (Isovue-370 (76%)) 100 ml IV ONETIME ONE Stop: 02/24/19 16:22 Last Admin: 02/24/19 16:58 Dose: 100 ml Lisinopril (Prinivil) 5 mg PO DAILY [facility] Last Admin: 02/26/19 09:04 Dose: 5 mg - Exam General: Alert, Oriented Lungs: Normal Respiratory Effort, Decreased Breath Sounds. No: Crackles, Rales , Rhonchi Cardiovascular: Regular Rate, Irregular Rhythm, Murmurs Extremities: Pedal Edema (Improved) Sepsis Event Note - Evaluation Sepsis Screening Result: No Definite Risk - Focused Exam Vital Signs: Vital Signs Temp Pulse Resp BP Pulse Ox Pulse Ox 02/27/19 00:00 97.6 F 102 H 20 120/54 L 97 97 Date Exam was Performed: 02/27/19 Time Exam was Performed: 08:44 - Problem List & Annotations (1) Atrial fibrillation with rapid ventricular response SNOMED Code(s): 862723737053642 Code(s): I48.91 - UNSPECIFIED ATRIAL FIBRILLATION Status: Acute Current Visit: Yes (2) CHF exacerbation SNOMED Code(s): 261642247, 04847510210253 Code(s): I50.9 - HEART FAILURE, UNSPECIFIED Status: Acute Current Visit: Yes Qualifiers: Heart failure type: unspecified Qualified Code(s): I50.9 - Heart failure, unspecified (3) Elevated troponin I level SNOMED Code(s): 111784091 Code(s): R79.89 - OTHER SPECIFIED ABNORMAL FINDINGS OF BLOOD CHEMISTRY Status: Acute Current Visit: Yes (4) Palliative care status SNOMED Code(s): 788029374 Code(s): Z51.5 - ENCOUNTER FOR PALLIATIVE CARE Status: Acute Current Visit: Yes (5) Pleural effusion SNOMED Code(s): 19641179 Code(s): J90 - PLEURAL EFFUSION, NOT ELSEWHERE CLASSIFIED Status: Acute Current Visit: Yes (6) Non-ST elevated myocardial infarction SNOMED Code(s): 56086594 Code(s): I21.4 - NON-ST ELEVATION (NSTEMI) MYOCARDIAL INFARCTION Status: Acute Current Visit: Yes - Problem List Review Problem List Initiated/Reviewed/Updated: Yes - My Orders Last 24 Hours: My Active Orders 02/26/19 08:26 Consult to Occupational Therapy [OT Evaluation and Treatment] [CONS] Routine Consult to Physical Therapy [PT Evaluation and Treatment] [CONS] Routine 02/26/19 09:00 Diltiazem [Cardizem CD] 180 mg PO DAILY 02/27/19 07:20 COMPREHENSIVE METABOLIC PN,CMP [CHEM] Routine 02/27/19 08:27 Echo Comp wo Cont [US] Routine 02/27/19 08:40 CXR [Chest 2V] [CR] Routine 02/27/19 14:00 Furosemide [Lasix] 40 mg PO BIDDIURETIC - Plan Plan:: 1. Change Lasix 40 mg by mouth twice a day. 2. Chest x-ray 3. DC telemetry 4. PT/OT/ambulation 5. Stop lisinopril due to low blood pressure
[2019-02-27] MEDS: Aspirin 325 MG Tab.EC PO SCH (09:10)
[2019-02-27] MEDS: Diltiazem 180 MG Cap.CD PO SCH (09:10)
[2019-02-27] MEDS: Potassium Chloride 20 MEQ Tab.ER PO SCH (09:10)
[2019-02-27] MEDS: Enoxaparin 30 MG/0.3 ML Syringe SUBCUT SCH (10:03)
[2019-02-27] MEDS ORDERED: Perflutren Lipid Microspheres 2.2 MG/2 ML SDV IVPUSH ONE (12:59)
[2019-02-27] MEDS: Furosemide 40 MG Tab PO SCH (13:49)
--- NOTE | 2019-02-27 14:24 | CR ---
INDICATION: Pleural effusion, CHF followup. CHEST, TWO VIEWS: PA and lateral views of the chest 02/27/19 were compared with 02/24/19 and revealed marked improvement in the appearance of the chest with the heart to remaining enlarged. Pulmonary vasculature is less congested, but still remains slightly congested compatible with resolving CHF. Interstitial markings are also significantly decreased compatible with residual interstitial lung edema which is receding. The aorta is tortuous and calcified in the arch and descending portion. A moderate dextroconcave scoliosis of the lower and middle thoracic spine is noted. Findings compatible with COPD are noted. Overlying EKG leads are noted. IMPRESSION: 1. Significant improvement in the appearance of the chest with resolving CHF and lung edema. 2. COPD. 3. Scoliosis, possible osteoporosis. MTDD
[2019-02-28] MEDS: Furosemide 40 MG Tab PO SCH (07:26)
[2019-02-28 07:28] VITALS: BP 88/51; PULSE 88
[2019-02-28] MEDS: Potassium Chloride 20 MEQ Tab.ER PO SCH (08:24)
[2019-02-28] MEDS: Diltiazem 180 MG Cap.CD PO SCH (08:24)
[2019-02-28] MEDS: Aspirin 325 MG Tab.EC PO SCH (08:25)
--- NOTE | 2019-02-28 08:33 | PCM.PN ---
- General Info Date of Service: 02/28/19 Admission Dx/Problem (Free Text): The patient states that she feels her leg swelling is down. Her lungs feel much better and she is not short of breath that she can lay flat. She denies dizziness. - Patient Data Vitals - Most Recent: Last Vital Signs Temp 97.6 F 02/28/19 07:27 Pulse 88 02/28/19 07:27 Resp 16 02/28/19 07:27 BP 88/51 L 02/28/19 07:27 Pulse Ox 99 02/28/19 07:27 Weight - Most Recent: 155 lb I&O - Last 24 Hours: Intake & Output 02/27/19 02/28/19 02/28/19 22:59 06:59 14:59 Output Total 550 800 Balance -550 -800 Lab Results Last 24 Hours: Laboratory Results - last 24 hr 02/27/19 Range/Units 10:15 Sodium 141 (135-145) mmol/L Potassium 4.1 (3.5-5.3) mmol/L Chloride 102 (100-110) mmol/L Carbon Dioxide 29 (21-32) mmol/L BUN 15 (7-18) mg/dL Creatinine 1.1 H (0.55-1.02) mg/dL Est Cr Clr Drug Dosing 29.04 mL/min Estimated GFR (MDRD) 47 L (>60) BUN/Creatinine Ratio 13.6 (9-20) Glucose 79 L (80-116) mg/dL Calcium 9.5 (8.6-10.2) mg/dL Total Bilirubin 1.0 (0.1-1.3) mg/dL AST 17 (5-25) IU/L ALT 6 L D (12-36) U/L Alkaline Phosphatase 105 (56-112) IU/L Total Protein 7.5 (6.0-8.0) g/dL Albumin 4.0 (3.2-4.6) g/dL Globulin 3.5 g/dL Albumin/Globulin Ratio 1.1 Med Orders - Current: Current Medications Albuterol (Proventil Neb Soln) 2.5 mg NEB Q4H PRN PRN Reason: Shortness of Breath Last Admin: 02/24/19 21:43 Dose: 2.5 mg Aspirin (Ecotrin) 325 mg PO DAILY [facility] Last Admin: 02/28/19 08:25 Dose: 325 mg Diltiazem HCl (Cardizem Cd) 180 mg PO DAILY [facility] Last Admin: 02/28/19 08:24 Dose: 180 mg Enoxaparin Sodium (Lovenox) 30 mg SUBCUT Q24H [facility] Last Admin: 02/27/19 10:03 Dose: 30 mg Furosemide (Lasix) 40 mg PO BIDDIURETIC [facility] Last Admin: 02/28/19 07:26 Dose: 40 mg Potassium Chloride (Klor-Con M20) 20 meq PO DAILY [facility] Last Admin: 02/28/19 08:24 Dose: 20 meq Sodium Chloride (Saline Flush) 10 ml FLUSH ASDIRECTED PRN PRN Reason: Keep Vein Open Last Admin: 02/25/19 11:12 Dose: 10 ml Discontinued Medications Diltiazem HCl (Diltiazem) 20 mg IVPUSH ONETIME ONE Stop: 02/24/19 15:11 Last Admin: 02/24/19 15:31 Dose: 20 mg Diltiazem HCl (Cardizem) 30 mg PO ONETIME ONE Stop: 02/24/19 15:37 Last Admin: 02/24/19 15:46 Dose: 30 mg Diltiazem HCl (Cardizem Cd) 120 mg PO DAILY [facility] Last Admin: 02/25/19 09:41 Dose: 120 mg Diltiazem HCl (Cardizem) 60 mg PO ONETIME ONE Stop: 02/25/19 17:55 Last Admin: 02/25/19 18:36 Dose: Not Given Diltiazem HCl (Cardizem) Confirm Administered Dose 60 mg .ROUTE .STK-MED ONE Stop: 02/25/19 18:32 Last Admin: 02/25/19 18:35 Dose: 60 mg Furosemide (Lasix) 40 mg IVPUSH NOW ONE Stop: 02/24/19 15:12 Last Admin: 02/24/19 15:31 Dose: 40 mg Furosemide (Lasix) 40 mg IVPUSH DAILY [facility] Last Admin: 02/25/19 11:09 Dose: Not Given Furosemide (Lasix) 40 mg IVPUSH BID E[facility] Furosemide (Lasix) 80 mg IVPUSH NOW ONE Stop: 02/25/19 10:23 Last Admin: 02/25/19 11:08 Dose: 80 mg Furosemide (Lasix) 60 mg PO BIDDIURETIC [facility] Last Admin: 02/27/19 07:53 Dose: 60 mg Iopamidol (Isovue-370 (76%)) 100 ml IV ONETIME ONE Stop: 02/24/19 16:22 Last Admin: 02/24/19 16:58 Dose: 100 ml Lisinopril (Prinivil) 5 mg PO DAILY [facility] Last Admin: 02/26/19 09:04 Dose: 5 mg Perflutren Lipid Microsphere (Definity) 2.2 mg IVPUSH PREPRO ONE Stop: 02/27/19 13:00 Last Admin: 02/27/19 12:37 Dose: 2.2 mg - Exam General: Alert, Cooperative Lungs: Clear to Auscultation, Normal Respiratory Effort, Crackles, Rales, Rhonchi Cardiovascular: Regular Rate, Regular Rhythm, Murmurs Extremities: Pedal Edema (Improved) Sepsis Event Note - Evaluation Sepsis Screening Result: No Definite Risk - Focused Exam Vital Signs: Vital Signs Temp Temp Pulse Resp BP Pulse Ox 02/28/19 07:27 97.6 F 88 16 88/51 L 99 02/28/19 00:30 97.4 F 92 20 135/70 98 Date Exam was Performed: 02/28/19 Time Exam was Performed: 08:31 - Problem List & Annotations (1) Atrial fibrillation with rapid ventricular response SNOMED Code(s): 170255120823322 Code(s): I48.91 - UNSPECIFIED ATRIAL FIBRILLATION Status: Acute Current Visit: Yes (2) CHF exacerbation SNOMED Code(s): 508718342, 27817936211369 Code(s): I50.9 - HEART FAILURE, UNSPECIFIED Status: Acute Current Visit: Yes Qualifiers: Heart failure type: unspecified Qualified Code(s): I50.9 - Heart failure, unspecified (3) Elevated troponin I level SNOMED Code(s): 858161088 Code(s): R79.89 - OTHER SPECIFIED ABNORMAL FINDINGS OF BLOOD CHEMISTRY Status: Acute Current Visit: Yes (4) Palliative care status SNOMED Code(s): 233085797 Code(s): Z51.5 - ENCOUNTER FOR PALLIATIVE CARE Status: Acute Current Visit: Yes (5) Pleural effusion SNOMED Code(s): 31592274 Code(s): J90 - PLEURAL EFFUSION, NOT ELSEWHERE CLASSIFIED Status: Acute Current Visit: Yes (6) Non-ST elevated myocardial infarction SNOMED Code(s): 52029519 Code(s): I21.4 - NON-ST ELEVATION (NSTEMI) MYOCARDIAL INFARCTION Status: Acute Current Visit: Yes - Problem List Review Problem List Initiated/Reviewed/Updated: Yes - My Orders Last 24 Hours: My Active Orders 02/27/19 12:28 Echo Comp w Cont [US] Routine 02/27/19 14:00 Furosemide [Lasix] 40 mg PO BIDDIURETIC - Assessment Assessment:: 1. Chest x-ray shows improving CHF. Echo report is pending. 2. We'll discharge to home. We did want the patient to swing bed but she does not want to do that. But she is agreeable to have home health. Will do physical therapy, PT and home health. Daily weights. Blood pressure is low and I told her that. We'll continue the diltiazem to go to the Lasix once a day [address] Elaine in 1 week. - Plan Plan:: 1. Change Lasix 40 mg by mouth twice a day. 2. Chest x-ray 3. DC telemetry 4. PT/OT/ambulation 5. Stop lisinopril due to low blood pressure
--- NOTE | 2019-02-28 08:41 | PCM.DCSUM1 ---
Discharge Summary - Hospital Course Free Text/Narrative:: Hospital course-the patient was placed on IV Lasix. Her heart rate was high and she refused beta blockers. So I started Cardizem and work my way up to 180 mg long-acting it was able to control her rate. She had leg swelling slowly got better but did not completely resolve it improved. Her breathing improved her PND and orthopnea went away. Discussed long-term anticoagulation for stroke prevention and she defers because of A. fib. We recommended that she find different living [place] She [place]. Also discussed swing bed and she wants to go home. But she was open to this home L services so PTOT see her. Her potassium was alone that was corrected with by mouth potassium. Patient has a history of noncompliance with medications. She was on 60 mg of Lasix and went to 40 by mouth twice a day and she'll go home on 40 g a day with diltiazem 180 mg a day. I have home health do daily weights and call if she starts to increase her weight to increase her Lasix. Her blood pressures little low side but I think is from over diuresing. I told use the walker all the time so she does not fall. Brief History: This is an 84-year-old female patient [place]. She said 2 day history of shortness of breath. She's been having leg swelling. She does not take her Lasix as she can't get to the bathroom. She does shortness of breath but denies PND or orthopnea. She denies fevers, chills, chest pain, palpitations. She was given some Lasix in the ER is that helped her legs but then the swelling came back. She has a history of atrial fibrillation and she is tachycardic. Diagnosis: Stroke: No - Discharge Data Discharge Date: 02/28/19 Discharge Disposition: Home, W Home Health Agency 06 Condition: Stable - Referral to Home Health Date of Face to Face Encounter: 02/28/19 Reason for Homebound Status: Congestive heart failure, weakness, noncompliance with medications Primary Care Physician: Pawan Elaine MD Skilled Need: CHF to make sure she's not came weight. Home safety, medication adherence strengthening and ADLs. - Discharge Diagnosis/Problem(s) (1) Atrial fibrillation with rapid ventricular response SNOMED Code(s): 707280651908774 ICD Code: I48.91 - UNSPECIFIED ATRIAL FIBRILLATION Status: Acute Current Visit: Yes (2) CHF exacerbation SNOMED Code(s): 956278976, 08629259159701 ICD Code: I50.9 - HEART FAILURE, UNSPECIFIED Status: Acute Current Visit : Yes Qualifiers: Heart failure type: unspecified Qualified Code(s): I50.9 - Heart failure, unspecified (3) Elevated troponin I level SNOMED Code(s): 609931441 ICD Code: R79.89 - OTHER SPECIFIED ABNORMAL FINDINGS OF BLOOD CHEMISTRY Status: Acute Current Visit: Yes (4) Palliative care status SNOMED Code(s): 377473900 ICD Code: Z51.5 - ENCOUNTER FOR PALLIATIVE CARE Status: Acute Current Visit: Yes (5) Pleural effusion SNOMED Code(s): 02725941 ICD Code: J90 - PLEURAL EFFUSION, NOT ELSEWHERE CLASSIFIED Status: Acute Current Visit: Yes (6) Non-ST elevated myocardial infarction SNOMED Code(s): 55413116 ICD Code: I21.4 - NON-ST ELEVATION (NSTEMI) MYOCARDIAL INFARCTION Status: Acute Current Visit: Yes - Patient Summary/Data Consults: Consultations 02/26/19 08:26 Consult to Occupational Therapy [OT Evaluation and Treatment] [CONS] Routine Please Evaluate and Treat. OT Reason for Consult: Strengthening This query below is only for informational purposes and is not editable. Admission Diagnosis/Problem: Atrial fibrillation with rapid ventricular response Consult to Physical Therapy [PT Evaluation and Treatment] [CONS] Routine Please Evaluate and Treat. PT Reason for Consult: Strengthening This query below is only for informational purposes and is not editable. Admission Diagnosis/Problem: Atrial fibrillation with rapid ventricular response - Patient Instructions Diet: Low Sodium Activity: As Tolerated Driving: Do Not Drive Showering/Bathing: May Shower Notify Provider of: Swelling and Redness Other/Special Instructions: 1. Recheck with Dr. Elaine in 1 week to follow-up on echo with CBC and CMP. 2. Home health/PT/OT. Daily weights watch for increase swelling or shortness of breath for CHF. - Discharge Plan Prescriptions/Med Rec: Diltiazem HCl [Cardizem LA] 180 mg PO DAILY #30 tab.sr.24h Furosemide [Lasix] 40 mg PO DAILY PRN #30 tablet PRN Reason: Edema Home Medications: Home Meds Albuterol Sulfate [Proair Hfa] 1 puff IH Q4H PRN 07/26/15 [History] Aspirin [Ecotrin EC] 325 mg PO BID PRN 07/26/15 [History] Diltiazem HCl [Cardizem LA] 180 mg PO DAILY #30 tab.sr.24h 02/28/19 [Rx] Furosemide [Lasix] 40 mg PO DAILY PRN #30 tablet 02/28/19 [Rx] Forms: ED Department Discharge Referrals: Pawan Elaine MD [Primary Care Provider] - - Discharge Summary/Plan Comment DC Time >30 min.: No - Patient Data Vitals - Most Recent: Last Vital Signs Temp 97.6 F 02/28/19 07:27 Pulse 88 02/28/19 07:27 Resp 16 02/28/19 07:27 BP 88/51 L 02/28/19 07:27 Pulse Ox 99 02/28/19 07:27 Weight - Most Recent: 155 lb I&O - Last 24 hours: Intake & Output 02/27/19 02/28/19 02/28/19 22:59 06:59 14:59 Output Total 550 800 Balance -550 -800 Lab Results - Last 24 hrs: Laboratory Results - last 24 hr 02/27/19 Range/Units 10:15 Sodium 141 (135-145) mmol/L Potassium 4.1 (3.5-5.3) mmol/L Chloride 102 (100-110) mmol/L Carbon Dioxide 29 (21-32) mmol/L BUN 15 (7-18) mg/dL Creatinine 1.1 H (0.55-1.02) mg/dL Est Cr Clr Drug Dosing 29.04 mL/min Estimated GFR (MDRD) 47 L (>60) BUN/Creatinine Ratio 13.6 (9-20) Glucose 79 L (80-116) mg/dL Calcium 9.5 (8.6-10.2) mg/dL Total Bilirubin 1.0 (0.1-1.3) mg/dL AST 17 (5-25) IU/L ALT 6 L D (12-36) U/L Alkaline Phosphatase 105 (56-112) IU/L Total Protein 7.5 (6.0-8.0) g/dL Albumin 4.0 (3.2-4.6) g/dL Globulin 3.5 g/dL Albumin/Globulin Ratio 1.1 Med Orders - Current: Current Medications Albuterol (Proventil Neb Soln) 2.5 mg NEB Q4H PRN PRN Reason: Shortness of Breath Last Admin: 02/24/19 21:43 Dose: 2.5 mg Aspirin (Ecotrin) 325 mg PO DAILY [facility] Last Admin: 02/28/19 08:25 Dose: 325 mg Diltiazem HCl (Cardizem Cd) 180 mg PO DAILY [facility] Last Admin: 02/28/19 08:24 Dose: 180 mg Enoxaparin Sodium (Lovenox) 30 mg SUBCUT Q24H [facility] Last Admin: 02/27/19 10:03 Dose: 30 mg Furosemide (Lasix) 40 mg PO BIDDIURETIC [facility] Last Admin: 02/28/19 07:26 Dose: 40 mg Potassium Chloride (Klor-Con M20) 20 meq PO DAILY [facility] Last Admin: 02/28/19 08:24 Dose: 20 meq Sodium Chloride (Saline Flush) 10 ml FLUSH ASDIRECTED PRN PRN Reason: Keep Vein Open Last Admin: 02/25/19 11:12 Dose: 10 ml Discontinued Medications Diltiazem HCl (Diltiazem) 20 mg IVPUSH ONETIME ONE Stop: 02/24/19 15:11 Last Admin: 02/24/19 15:31 Dose: 20 mg Diltiazem HCl (Cardizem) 30 mg PO ONETIME ONE Stop: 02/24/19 15:37 Last Admin: 02/24/19 15:46 Dose: 30 mg Diltiazem HCl (Cardizem Cd) 120 mg PO DAILY [facility] Last Admin: 02/25/19 09:41 Dose: 120 mg Diltiazem HCl (Cardizem) 60 mg PO ONETIME ONE Stop: 02/25/19 17:55 Last Admin: 02/25/19 18:36 Dose: Not Given Diltiazem HCl (Cardizem) Confirm Administered Dose 60 mg .ROUTE .STK-MED ONE Stop: 02/25/19 18:32 Last Admin: 02/25/19 18:35 Dose: 60 mg Furosemide (Lasix) 40 mg IVPUSH NOW ONE Stop: 02/24/19 15:12 Last Admin: 02/24/19 15:31 Dose: 40 mg Furosemide (Lasix) 40 mg IVPUSH DAILY [facility] Last Admin: 02/25/19 11:09 Dose: Not Given Furosemide (Lasix) 40 mg IVPUSH BID [facility] Furosemide (Lasix) 80 mg IVPUSH NOW ONE Stop: 02/25/19 10:23 Last Admin: 02/25/19 11:08 Dose: 80 mg Furosemide (Lasix) 60 mg PO BIDDIURETIC [facility] Last Admin: 02/27/19 07:53 Dose: 60 mg Iopamidol (Isovue-370 (76%)) 100 ml IV ONETIME ONE Stop: 02/24/19 16:22 Last Admin: 02/24/19 16:58 Dose: 100 ml Lisinopril (Prinivil) 5 mg PO DAILY [facility] Last Admin: 02/26/19 09:04 Dose: 5 mg Perflutren Lipid Microsphere (Definity) 2.2 mg IVPUSH PREPRO ONE Stop: 02/27/19 13:00 Last Admin: 02/27/19 12:37 Dose: 2.2 mg
[2019-02-28] MEDS: Enoxaparin 30 MG/0.3 ML Syringe SUBCUT SCH (11:46)
== END 2019-02-28 12:50 | disposition home health service (06) | DRG 282 ==
LOC: FB.ED 15:01 → FB.MS 18:54
PROVIDERS: ADMIT Emergency Medicine; ATTEND Family Medicine
DX: I11.0 Hypertensive heart disease with heart failure (principal); I21.4 Non-ST elevation (NSTEMI) myocardial infarction; I50.9 Heart failure, unspecified; R79.89 Other specified abnormal findings of blood chemistry; I48.91 Unspecified atrial fibrillation; Z66 Do not resuscitate; Z51.5 Encounter for palliative care; H54.7 Unspecified visual loss; R74.8 Abnormal levels of other serum enzymes; J45.909 Unspecified asthma, uncomplicated; M19.90 Unspecified osteoarthritis, unspecified site; G89.29 Other chronic pain; M54.9 Dorsalgia, unspecified; E66.9 Obesity, unspecified; D64.9 Anemia, unspecified; Z96.649 Presence of unspecified artificial hip joint; Z68.29 Body mass index [BMI] 29.0-29.9, adult; Z79.899 Other long term (current) drug therapy; Z87.440 Personal history of urinary (tract) infections; Z90.49 Acquired absence of other specified parts of digestive tract; Z90.710 Acquired absence of both cervix and uterus; Z79.82 Long term (current) use of aspirin; Z91.19 Patient's noncompliance with other medical treatment and regimen
CPT/HCPCS: 36415; 71045; 71275; 80053; 83735; 83880; 84484 ×2; 85025; 85379; 85610; 85730; 93005; 99285; A9270; J1940; J3490; Q9967; 71046; 80048; 93306; 94760; 97162-GP; 97165-GO; 97530-GO; 97530-GP; 99284; C8929; J1650; Q9957

== ENCOUNTER 2019-06-27 07:47 | Emergency (ER) | payer MEDICARE, BC ==
[2019-06-27 09:38] VITALS: BP 106/76; PULSE 107
--- NOTE | 2019-06-27 10:04 | EDM.PDOC ---
ED HPI GENERAL MEDICAL PROBLEM - General Chief Complaint: Gastrointestinal Problem Time Seen by Provider: 06/27/19 08:10 Source of Information: Reports: Patient History Limitations: Reports: No Limitations - History of Present Illness INITIAL COMMENTS - FREE TEXT/NARRATIVE: Patient presented to the ED because of LGI bleed which started several days ago and is progressively getting worse. Her Hb on 02/24/19-12.7, 06/26/19- 10.7 and today her hb was 9.7. She denies any abdominal pain, N/V/D. She is taking full dose of aspirin for AFIB. - Related Data Allergies Allergy/AdvReac Type Severity Reaction Status Date / Time No Known Allergies Allergy Verified 02/24/19 19:44 Home Meds: Home Meds Albuterol Sulfate [Proair Hfa] 1 puff IH Q4H PRN 07/26/15 [History] Aspirin [Ecotrin EC] 325 mg PO BID PRN 07/26/15 [History] Diltiazem HCl [Cardizem LA] 180 mg PO DAILY #30 tab.sr.24h 02/28/19 [Rx] Furosemide [Lasix] 40 mg PO DAILY PRN #30 tablet 02/28/19 [Rx] Ciprofloxacin HCl 250 mg PO WEEKLY 06/27/19 [History] Fluticasone Propionate [Flonase Allergy Relief] 9.9 ml DAILY 06/27/19 [History] Past Medical History HEENT History: Reports: Impaired Vision, Other (See Below) Other HEENT History: Wears reading glasses. Cardiovascular History: Reports: Afib, Heart Failure, Heart Murmur, Hypertension Other Cardiovascular History: hx 'leaky heart valves' Respiratory History: Reports: Asthma, Other (See Below) Other Respiratory History: States she has had asthma since she was a child. Gastrointestinal History: Reports: Cholelithiasis, Hemorrhoids, Other (See Below ) Other Gastrointestinal History: hx rectal bleeding from hemorrhoids Genitourinary History: Reports: UTI, Recurrent, Other (See Below) Other Genitourinary History: hx prolapsed bladder DRESS FITTER History: Reports: Other DRESS FITTER History: Musculoskeletal History: Reports: Arthritis, Back Pain, Chronic, Fracture, Osteoarthritis Neurological History: Reports: None Psychiatric History: Reports: None Endocrine/Metabolic History: Reports: Obesity/BMI 30+ Hematologic History: Reports: Anemia, Blood Transfusion(s) Immunologic History: Reports: None Oncologic (Cancer) History: Reports: None Dermatologic History: Reports: None - Infectious Disease History Infectious Disease History: Reports: Chicken Pox, Measles - Past Surgical History Cardiovascular Surgical History: Reports: None GI Surgical History: Reports: Appendectomy, Cholecystectomy Female Surgical History: Reports: Hysterectomy, Salpingo-Oophorectomy Musculoskeletal Surgical History: Reports: Hip Replacement, ORIF, Other (See Below) Social & Family History - Family History Family Medical History: Noncontributory - Tobacco Use Smoking Status *Q: Never Smoker - Caffeine Use Caffeine Use: Reports: Coffee - Living Situation & Occupation Living situation: Reports: Occupation: Retired ED ROS GENERAL - Review of Systems Review Of Systems: See Below Constitutional: Reports: No Symptoms HEENT: Reports: No Symptoms Respiratory: Reports: No Symptoms Cardiovascular: Reports: No Symptoms Endocrine: Reports: No Symptoms GI/Abdominal: Reports: Black Stool, Bloody Stool : Reports: No Symptoms Musculoskeletal: Reports: No Symptoms Skin: Reports: No Symptoms Neurological: Reports: No Symptoms ED EXAM, GI/ABD - Physical Exam Exam: See Below Exam Limited By: No Limitations General Appearance: Alert, No Apparent Distress Ears: Normal External Exam, Normal Canal, Hearing Grossly Normal Nose: Normal Inspection, Normal Mucosa Throat/Mouth: Normal Inspection, Normal Lips, Normal Teeth, Normal Gums Head: Atraumatic, Normocephalic Respiratory/Chest: No Respiratory Distress, Lungs Clear, Normal Breath Sounds Cardiovascular: Normal Peripheral Pulses, Regular Rate, Rhythm, No Edema, No Gallop GI/Abdominal Exam: Normal Bowel Sounds, Soft, Non-Tender, No Organomegaly Back Exam: Normal Inspection, Full Range of Motion Extremities: Normal Inspection, Normal Range of Motion, Non-Tender Course - Vital Signs Text/Narrative:: HB-9.7NPO NS @100 ml/hr. Last Recorded V/S: Last Vital Signs Temp 36.4 C 06/27/19 08:01 Pulse 107 H 06/27/19 09:37 Resp 16 06/27/19 09:37 BP 106/76 06/27/19 09:37 Pulse Ox 99 06/27/19 09:37 - Orders/Labs/Meds Labs: Laboratory Tests 06/27/19 Range/Units 08:30 WBC 7.2 (4.5-12.0) X10-3/uL RBC 3.52 (3.23-5.20) x10(6)uL Hgb 9.7 L (11.5-15.5) g/dL Hct 28.9 L (30.0-51.3) % MCV 82.1 (80-96) fL MCH 27.6 L (27.7-33.6) pg MCHC 33.6 (32.2-35.4) g/dL RDW 17.9 H (11.5-15.5) % Plt Count 315 (125-369) X10(3)uL MPV 8.1 (7.4-10.4) fL Neut % (Auto) 80.6 (46-82) % Lymph % (Auto) 11.0 L (13-37) % [place] % (Auto) 6.1 (4-12) % Eos % (Auto) 2 (1.0-5.0) % Baso % (Auto) 1 (0-2) % Neut # (Auto) 5.8 (1.6-8.3) # Lymph # (Auto) 0.8 (0.6-5.0) # [place] # (Auto) 0.4 (0.0-1.3) # Eos # (Auto) 0.1 (0.0-0.8) # Baso # (Auto) 0.1 (0.0-0.2) # Departure - Departure Time of Disposition: 09:30 Disposition: DC/Tfer to Acute Hospital 02 Condition: Good Clinical Impression: Lower GI bleed, CHF, Congestive heart failure, Afib, Atrial fibrillation - Discharge Information Referrals: Pawan Elaine MD [Primary Care Provider] - Forms: ED Department Discharge Sepsis Event Note - Evaluation Sepsis Screening Result: No Definite Risk - Focused Exam Vital Signs: Vital Signs Temp Pulse Resp BP Pulse Ox 06/27/19 09:37 107 H 16 106/76 99 06/27/19 08:01 36.4 C 99 18 108/45 L Date Exam was Performed: 06/27/19 Time Exam was Performed: 10:04
[2019-06-27] MEDS ORDERED: Sodium Chloride 0.9% 1,000 ML IV SCH (11:00)
== END 2019-06-27 11:05 ==
LOC: FB.ED 07:47
DX: K92.2 Gastrointestinal hemorrhage, unspecified (principal); I11.0 Hypertensive heart disease with heart failure; I50.9 Heart failure, unspecified; I48.91 Unspecified atrial fibrillation; J45.909 Unspecified asthma, uncomplicated; E66.9 Obesity, unspecified; Z68.26 Body mass index [BMI] 26.0-26.9, adult; Z79.82 Long term (current) use of aspirin; Z79.899 Other long term (current) drug therapy
CPT/HCPCS: 36415; 85025; 99285; J7030

== ENCOUNTER 2020-06-28 12:18 | Emergency (ER) | payer MEDICARE, BC ==
--- NOTE | 2020-06-28 12:28 | EDM.PDOC ---
ED HPI GENERAL MEDICAL PROBLEM - General Stated Complaint: ACHEY ALL OVER PAIN R SIDE Time Seen by Provider: 06/28/20 12:28 Source of Information: Reports: Patient History Limitations: Reports: No Limitations - History of Present Illness INITIAL COMMENTS - FREE TEXT/NARRATIVE: 85-year-old female who reports beginning on 06/25/2020 she developed some pain in her right abdomen that was associated with nausea and some vomiting. She has had intermittent episodes with pain in her right abdomen for years and has been admitted in the past for bowel obstructions but has never had an operation related to this. That the pain is variable. It is currently a 6/10 but has been as high as a 10/10. It is a sharp pain that is worse with palpation and with movement. She has had no vomiting today but had vomiting 1 yesterday and persists with nausea. She also reports that she has had scant bowel movement since Tuesday and had only a very small bowel movement today. There has been no blood in her stool. No dysuria or hematuria. No fevers or chills. No chest pain or shortness of breath. She does report that she feels very weak and that she does get somewhat short of breath when she does activity and she has no energy. She also reports she has been eating very little but has been able to drink liquids. She does not have any appetite. She presents from her home via private vehicle. There are no other associated signs or symptoms. There are no other modifying factors. It should be noted that the patient is a DNR/DNI but she would want treatable and correctable problems taken care of. 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) Right Upper Abdomen Pain Score (Numeric/FACES): 6 - Related Data Allergies Allergy/AdvReac Type Severity Reaction Status Date / Time No Known Allergies Allergy Verified 02/24/19 19:44 Home Meds: Home Meds Albuterol Sulfate [Proair Hfa] 1 puff IH Q4H PRN 07/26/15 [History] Aspirin [Ecotrin EC] 325 mg PO BID PRN 07/26/15 [History] Diltiazem HCl [Cardizem LA] 180 mg PO DAILY #30 tab.sr.24h 02/28/19 [Rx] Furosemide [Lasix] 40 mg PO DAILY PRN #30 tablet 02/28/19 [Rx] Fluticasone Propionate [Flonase Allergy Relief] 9.9 ml DAILY 06/27/19 [History] Past Medical History HEENT History: Reports: Impaired Vision, Other (See Below) Other HEENT History: Wears reading glasses. Cardiovascular History: Reports: Afib, Heart Failure, Heart Murmur, Hypertension Other Cardiovascular History: hx 'leaky heart valves' Respiratory History: Reports: Asthma, Other (See Below) Other Respiratory History: States she has had asthma since she was a child. 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: Musculoskeletal History: Reports: Arthritis, Back Pain, Chronic, Fracture, Osteoarthritis Endocrine/Metabolic History: Reports: Obesity/BMI 30+ Hematologic History: Reports: Anemia, Anticoagulation Therapy, Blood Transfusion(s) - Infectious Disease History Infectious Disease History: Reports: Chicken Pox, Measles - Past Surgical History GI Surgical History: Reports: Appendectomy, Cholecystectomy Female Surgical History: Reports: Hysterectomy, Salpingo-Oophorectomy Musculoskeletal Surgical History: Reports: Hip Replacement, ORIF Social & Family History - Tobacco Use Tobacco Use Status *Q: Unknown Ever Used Tobacco - Caffeine Use Caffeine Use: Reports: Coffee, Tea - Alcohol Use Alcohol Use History: No - Living Situation & Occupation Living situation: Reports: Occupation: Retired Social History Comment: [place] ED ROS GENERAL - Review of Systems Review Of Systems: See Below Constitutional: Reports: Weakness HEENT: Reports: Other (Dry mouth) Respiratory: Reports: No Symptoms Cardiovascular: Reports: Dyspnea on Exertion, Palpitations. Denies: Chest Pain GI/Abdominal: Reports: Abdominal Pain (Right-sided), Constipation, Nausea, Vomiting : Reports: No Symptoms Musculoskeletal: Reports: No Symptoms (Except some trace edema in both legs) Skin: Reports: No Symptoms Neurological: Reports: Headache Psychiatric: Reports: No Symptoms Hematologic/Lymphatic: Reports: Easy Bruising (Chronically anticoagulated on Eliquis) Immunologic: Reports: No Symptoms ED EXAM, GENERAL - Physical Exam Exam: See Below Exam Limited By: No Limitations General Appearance: Alert, Mild Distress, Obese, Other (Probably responsive and interactive.) Eye Exam: Bilateral Eye: EOMI, Normal Inspection (Sclera are anicteric) Ears: Normal External Exam, Hearing Grossly Normal Ear Exam: Bilateral Ear: Auricle Normal Nose: Normal Inspection, Normal Mucosa, No Blood Throat/Mouth: Normal Voice, No Airway Compromise, Other (Dry mucous membranes) Head: Atraumatic, Normocephalic Neck: Normal Inspection, Supple, Non-Tender, Full Range of Motion Respiratory/Chest: No Respiratory Distress, Lungs Clear, Normal Breath Sounds, No Accessory Muscle Use, Chest Non-Tender Cardiovascular: Normal Peripheral Pulses, No JVD, No Murmur, Tachycardia, Irregularly Irregular Peripheral Pulses: 2+: Radial (L), Radial (R), Dorsalis Pedis (L), Dorsalis Pedis (R) GI/Abdominal: Normal Bowel Sounds, Soft, Distended, Guarding, Tender Back Exam: Normal Inspection, Full Range of Motion Extremities: Normal Range of Motion, Normal Capillary Refill, Pedal Edema (Trace bilaterally) Neurological: Alert, Oriented, CN II-XII Intact, Normal Cognition, No Motor/Sensory Deficits Psychiatric: Normal Affect Skin Exam: Warm, Dry, Intact, Normal Color, No Rash #1 Interpretation EKG Date: 06/28/20 Time: 12:59 Rhythm: A-Fib Rate (Beats/Min): 110 [place]: Normal P-Wave: Absent QRS: Normal ST-T: Other (LVH with anterior and lateral ST depression) QT: Normal Comparison: No Change (Actually, compared to an EKG performed on 02/24/2019, this EKG shows improved anterior and lateral ST changes.) Course - Vital Signs Last Recorded V/S: Last Vital Signs Temp 36.6 C 06/28/20 12:18 Pulse 115 H 06/28/20 15:00 Resp 20 06/28/20 15:00 BP 87/55 L 06/28/20 15:00 Pulse Ox 95 06/28/20 15:00 - Orders/Labs/Meds Orders: Active Orders 24 hr Category Date Time Status Abdomen Pelvis wo Cont [CT] Stat Exams 06/28/20 12:50 Taken CULTURE BLOOD [BC] Urgent Lab 06/28/20 15:25 Received CULTURE BLOOD [BC] Urgent Lab 06/28/20 15:30 Received CULTURE URINE [RM] Stat Lab 06/28/20 14:10 Results Blood Culture x2 Reflex Set [OM.PC] Urgent Oth 06/28/20 15:13 Ordered Peripheral IV Insertion Adult [OM.PC] Routine Oth 06/28/20 12:53 Ordered EKG 12 Lead [EK] Routine Ther 06/28/20 12:50 Ordered Labs: Laboratory Tests 06/28/20 06/28/20 06/28/20 Range/Units 13:10 13:10 13:10 WBC 17.4 H (3.0-10.3) x10-3/uL RBC 4.70 (3.60-5.20) x10(6)uL Hgb 13.4 (11.4-15.5) g/dL Hct 41.5 (34.2-48.2) % MCV 88.3 (76.7-100.5) fL MCH 28.6 (23.9-33.9) pg MCHC 32.4 (31.9-34.8) g/dL RDW 16.3 (12.3-16.5) % Plt Count 218 (151-488) x10(3)uL MPV 8.8 (7.1-12.4) fL Add Manual Diff Yes Neutrophils % (Manual) 91 H (46-82) % Band Neutrophils % 3 (0-6) % Lymphocytes % (Manual) 4 L (13-37) % Monocytes % (Manual) 1 L (4-12) % Metamyelocytes % 1 H (0-0) % Hypersegmented Neuts Moderate Sodium 139 (135-145) mmol/L Potassium 4.0 (3.5-5.3) mmol/L Chloride 100 (100-110) mmol/L Carbon Dioxide 24 (21-32) mmol/L BUN 21 H (7-18) mg/dL Creatinine 1.1 H (0.55-1.02) mg/dL Est Cr Clr Drug Dosing 28.50 mL/min Estimated GFR (MDRD) 47 L (>60) BUN/Creatinine Ratio 19.1 (9-20) Glucose 122 H (80-116) mg/dL Lactic Acid (0.4-2.0) mmol/L Calcium 8.4 L (8.6-10.2) mg/dL Total Bilirubin 1.4 H (0.1-1.3) mg/dL AST 14 D (5-25) IU/L ALT 19 D (12-36) U/L Alkaline Phosphatase 119 H (56-112) IU/L Troponin I 67.9 H* (4.0-60.3) pg/mL C-Reactive Protein 19.7 H* (0.5-0.9) mg/dL Total Protein 7.2 (6.0-8.0) g/dL Albumin 3.4 (3.2-4.6) g/dL Globulin 3.8 g/dL Albumin/Globulin Ratio 0.9 Lipase 39 L (73-393) U/L Urine Color (YELLOW) Urine Appearance (CLEAR) Urine pH (5.0-6.5) Ur Specific Mason (1.010-1.025) Urine Protein (NEGATIVE) mg/dL Urine Glucose (UA) (NORMAL) mg/dL Urine Ketones (NEGATIVE) mg/dL Urine Occult Blood (NEGATIVE) Urine Nitrite (NEGATIVE) Urine Bilirubin (NEGATIVE) Urine Urobilinogen (NEGATIVE) mg/dL Ur Leukocyte Esterase (NEGATIVE) Urine RBC (0-5) Urine WBC (0-5) 06/28/20 06/28/20 Range/Units 14:10 15:25 WBC (3.0-10.3) x10-3/uL RBC (3.60-5.20) x10(6)uL Hgb (11.4-15.5) g/dL Hct (34.2-48.2) % MCV (76.7-100.5) fL MCH (23.9-33.9) pg MCHC (31.9-34.8) g/dL RDW (12.3-16.5) % Plt Count (151-488) x10(3)uL MPV (7.1-12.4) fL Add Manual Diff Neutrophils % (Manual) (46-82) % Band Neutrophils % (0-6) % Lymphocytes % (Manual) (13-37) % Monocytes % (Manual) (4-12) % Metamyelocytes % (0-0) % Hypersegmented Neuts Sodium (135-145) mmol/L Potassium (3.5-5.3) mmol/L Chloride (100-110) mmol/L Carbon Dioxide (21-32) mmol/L BUN (7-18) mg/dL Creatinine (0.55-1.02) mg/dL Est Cr Clr Drug Dosing mL/min Estimated GFR (MDRD) (>60) BUN/Creatinine Ratio (9-20) Glucose (80-116) mg/dL Lactic Acid 2.1 H* (0.4-2.0) mmol/L Calcium (8.6-10.2) mg/dL Total Bilirubin (0.1-1.3) mg/dL AST (5-25) IU/L ALT (12-36) U/L Alkaline Phosphatase (56-112) IU/L Troponin I (4.0-60.3) pg/mL C-Reactive Protein (0.5-0.9) mg/dL Total Protein (6.0-8.0) g/dL Albumin (3.2-4.6) g/dL Globulin g/dL Albumin/Globulin Ratio Lipase (73-393) U/L Urine Color Yellow (YELLOW) Urine Appearance Cloudy (CLEAR) Urine pH 6.0 (5.0-6.5) Ur Specific Mason 1.015 (1.010-1.025) Urine Protein 100 H (NEGATIVE) mg/dL Urine Glucose (UA) Normal (NORMAL) mg/dL Urine Ketones Negative (NEGATIVE) mg/dL Urine Occult Blood Large H (NEGATIVE) Urine Nitrite Negative (NEGATIVE) Urine Bilirubin Negative (NEGATIVE) Urine Urobilinogen Normal (NEGATIVE) mg/dL Ur Leukocyte Esterase Large H (NEGATIVE) Urine RBC Packed H (0-5) Urine WBC Packed H (0-5) Meds: Medications Discontinued Medications Generic Name Dose Route Start Last Admin Trade Name Freq PRN Reason Stop Dose Admin Ceftriaxone Sodium 1 gm 06/28/20 15:15 06/28/20 15:48 Ceftriaxone 1 Gm Vial IVPUSH 06/28/20 15:16 1 gm ONETIME ONE Administration Ceftriaxone Sodium 1 gm 06/28/20 16:58 06/28/20 17:23 Ceftriaxone 1 Gm Vial IVPUSH 06/28/20 16:59 1 gm ONETIME ONE Administration Diltiazem HCl 20 mg 06/28/20 15:31 06/28/20 15:45 Diltiazem 25 Mg/5 Ml Sdv IVPUSH 06/28/20 15:32 20 mg ONETIME ONE Administration Diltiazem HCl 15 mg 06/28/20 17:26 06/28/20 17:59 Diltiazem 25 Mg/5 Ml Sdv IVPUSH 06/28/20 17:27 15 mg ONETIME ONE Administration Sodium Chloride 500 mls @ 999 mls/hr 06/28/20 12:53 06/28/20 13:20 Normal Saline IV 06/28/20 13:23 999 mls/hr .BOLUS ONE Administration Sodium Chloride 1,000 mls @ 100 mls/hr 06/28/20 17:00 06/28/20 17:23 Normal Saline IV 100 mls/hr ASDIRECTED ELLIOT Administration Diltiazem HCl 125 mg/ Sodium 125 mls @ 5 mls/hr 06/28/20 17:30 06/28/20 18:19 Chloride IV 5 mg/hr TITRATE ELLIOT 5 mls/hr Administration Protocol 5 MG/HR Sodium Chloride 10 ml 06/28/20 12:53 Sodium Chloride 0.9% 10 Ml Syringe FLUSH ASDIRECTED PRN Keep Vein Open - Radiology Interpretation Free Text/Narrative:: CT scan of the abdomen and pelvis shows moderate right hydronephrosis to the UPJ. There is no stone visualized but it could be due to either J obstruction or stricture. Is also moderate right perinephric inflammatory change. There is diverticulosis but no diverticulitis. There is intralobular septal thickening with subtle ground glass opacities within the lungs that could be due to pulmonary edema. - Re-Assessments/Exams Free Text/Narrative Re-Assessment/Exam: 06/28/20 15:00hr: Patient with evidence of UTI. The white blood cell count is elevated. Her troponin is mildly elevated. Her electrolytes are normal. The EKG shows A. fib with RVR. CT scan of her abdomen and pelvis showed sided hydronephrosis and with the infected appearing urine, this is something that will most probably need urologic intervention. Therefore, she will need services that are not available at [facility]. I will discuss this with the patient. 06/28/20 15:25: The patient currently has a heart rate in the 120s and her blood pressure is around 100 systolic. She is awake and alert. I have ordered Rocephin IV. I have also ordered blood cultures 2 sets and lactic acid. I will also give the patient diltiazem 20 mg IV we are moving her to a room for higher level of monitoring. I discussed all this with the patient and she would want me to discuss her case with the doctors [facility] in [place]. She was not really wanting any surgeries but understood that she may need to have surgery for this problem to drained the urine and she was agreeable this time to consider this. 06/28/20 16:25: The patient's pulse rate is down into the 90s. Her blood pressure is 110 systolic. I will now call the doctors at [facility] in [place]. The patient remains awake, alert and neurologically stable. Her lactic acid is minimally elevated at 2.1. I am still being very gentle with my IV fluid hydration of the patient. We will continue to monitor the patient closely. 06/28/20 16:40: I did call [facility] and they will after connect me with the hospitalist who is not available at this time. 06/28/20 16:55: Discussed the patient's case with Dr. Bhatt, hospitalist at [facility] in [place], and he has agreed to accept the patient in transfer. We will have told the patient until a bed is available. Their estimated that it may be 2 hours. I will continue to monitor the patient closely. I have also been requested to give the patient another gram of Rocephin IV. 06/28/20 17:05: At patient's request I did call and discuss the patient's condition with her daughter Mehnaz and I have answered all of her questions. Her telephone number is [phone] and she would appreciate updates on the patient. 06/28/20 17:25: The patient's heart rate is back up into the 110s. Her blood pressures staying in the 110s as well. I will give the patient additional diltiazem IV push and placed her on a diltiazem drip at 5 mg per hour. I have also called the staff at [facility] in [place] and informed them of this change in the patient's condition. I have discussed all this with the patient and she is in agreement with the plans. Departure - Departure Time of Disposition: 19:09 Disposition: DC/Tfer to Acute Hospital 02 Condition: Fair (Guarded) Clinical Impression: Hydronephrosis, right, Obstruction of right ureteropelvic junction (UPJ), Atria l fibrillation with RVR UTI (urinary tract infection) Qualifiers: Urinary tract infection type: acute pyelonephritis Qualified Code(s): N10 - Acute pyelonephritis Sepsis Qualifiers: Sepsis type: sepsis due to unspecified organism Sepsis acute organ dysfunction status: unspecified Qualified Code(s): A41.9 - Sepsis, unspecified organism - Discharge Information Referrals: Pawan Elaine MD [Primary Care Provider] - Forms: ED Department Discharge - My Orders Last 24 Hours: My Active Orders 06/28/20 12:50 Abdomen Pelvis wo Cont [CT] Stat EKG 12 Lead [EK] Routine 06/28/20 12:53 Peripheral IV Insertion Adult [OM.PC] Routine 06/28/20 14:10 CULTURE URINE [RM] Stat 06/28/20 15:13 Blood Culture x2 Reflex Set [OM.PC] Urgent 06/28/20 15:25 CULTURE BLOOD [BC] Urgent 06/28/20 15:30 CULTURE BLOOD [BC] Urgent - Assessment/Plan Last 24 Hours: My Active Orders 06/28/20 12:50 Abdomen Pelvis wo Cont [CT] Stat EKG 12 Lead [EK] Routine 06/28/20 12:53 Peripheral IV Insertion Adult [OM.PC] Routine 06/28/20 14:10 CULTURE URINE [RM] Stat 06/28/20 15:13 Blood Culture x2 Reflex Set [OM.PC] Urgent 06/28/20 15:25 CULTURE BLOOD [BC] Urgent 06/28/20 15:30 CULTURE BLOOD [BC] Urgent
[2020-06-28] MEDS ORDERED: Sodium Chloride 0.9% 10 ML Syringe FLUSH PRN (12:53)
[2020-06-28] MEDS ORDERED: Sodium Chloride 0.9% 500 ML IV ONE (12:53)
[2020-06-28] MEDS ORDERED: cefTRIAXone 1 GM Vial IVPUSH ONE ×2 (15:15→16:58)
[2020-06-28] MEDS ORDERED: Diltiazem 25 MG/5 ML SDV IVPUSH ONE ×2 (15:31→17:26)
[2020-06-28] MEDS ORDERED: Sodium Chloride 0.9% 1,000 ML IV SCH (17:00)
[2020-06-28] MEDS ORDERED: Diltiazem 125 MG in Sodium Chloride 0.9% 100 ML IV SCH (17:30)
[2020-06-28 18:06] VITALS: BP 87/55; PULSE 115
== END 2020-06-28 19:09 ==
LOC: FB.ED 12:18
DX: A41.9 Sepsis, unspecified organism (principal); N10 Acute pyelonephritis; N13.2 Hydronephrosis with renal and ureteral calculous obstruction; I48.91 Unspecified atrial fibrillation; I11.0 Hypertensive heart disease with heart failure; I50.9 Heart failure, unspecified; J45.909 Unspecified asthma, uncomplicated; M19.90 Unspecified osteoarthritis, unspecified site; E66.9 Obesity, unspecified; Z68.25 Body mass index [BMI] 25.0-25.9, adult; Z79.82 Long term (current) use of aspirin; Z79.899 Other long term (current) drug therapy
CPT/HCPCS: 36415; 74176; 80053; 81001; 83605; 83690; 84484; 85025; 86140; 87040; 87086; 87088; 87186; 93005; 96365; 96367; 96376; 99285; J0696; J3490; J7030; J7040

== ENCOUNTER 2020-11-12 08:18 | Emergency (ER) | payer MEDICARE, BC ==
[2020-11-12] MEDS ORDERED: Sulfamethoxazole/Trimethoprim 800-160 MG Tab PO ONE ×2 (08:19→10:26)
[2020-11-12 08:42] VITALS: BP 108/72; PULSE 70
--- NOTE | 2020-11-12 08:44 | EDM.PDOC ---
ED HPI GENERAL MEDICAL PROBLEM - General Chief Complaint: General Stated Complaint: AFIB Time Seen by Provider: 11/12/20 08:30 Source of Information: Reports: Patient, EMS, Old Records History Limitations: Reports: Other (Patient is not a good historian) - History of Present Illness INITIAL COMMENTS - FREE TEXT/NARRATIVE: 85 yo female who lives alone arrives via EMS this morning for light-headedness this morning that she experienced when in the kitchen attempting to make some coffee. She has a hx of afib and a recent GI bleed tx'd in [facility]. She has followed up with Dr. Elaine since then. She says her chronic leg swelling is not worse, she has not had a fever or CP, she never sleeps well, she has no urinary sx's that are new, and she has a chronically poor appetite. She is on furosemide for her fluid retention in her legs and lungs. She is asymptomatic here in the ER lying in a supine position. She has not eaten yet today. No visible blood or black color to her stools. Her children from [place] came to visit while she was in the hospital and they have since returned to [place]. Her home health aid is not with her today. She is a . Her hgb on 10/28/20 in [facility] was 7.[address] 6.1 Onset: Today, Sudden Onset Date: 11/12/20 Duration: Minutes: Location: Reports: Head Quality: Reports: Other (pain not reported) Severity: Mild Improves with: Reports: Other (lying) Worsens with: Reports: Other (? 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 (see below) (none) - Related Data Allergies Allergy/AdvReac Type Severity Reaction Status Date / Time No Known Allergies Allergy Verified 11/12/20 08:26 Home Meds: Home Meds Albuterol Sulfate [Proair Hfa] 1 puff IH Q4H PRN 07/26/15 [History] Aspirin [Ecotrin EC] 325 mg PO BID PRN 07/26/15 [History] Diltiazem HCl [Cardizem LA] 180 mg PO DAILY #30 tab.sr.24h 02/28/19 [Rx] Fluticasone Propionate [Flonase Allergy Relief] 9.9 ml DAILY 06/27/19 [History] Furosemide [Lasix] 40 mg PO DAILY 11/12/20 [History] Past Medical History HEENT History: Reports: Impaired Vision, Other (See Below) Other HEENT History: Wears reading glasses. Cardiovascular History: Reports: Afib, Heart Failure, Heart Murmur, Hypertension Other Cardiovascular History: hx 'leaky heart valves' Respiratory History: Reports: Asthma, Other (See Below) Other Respiratory History: States she has had asthma since she was a child. 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: Musculoskeletal History: Reports: Arthritis, Back Pain, Chronic, Fracture, Osteoarthritis Neurological History: Reports: None Psychiatric History: Reports: None Endocrine/Metabolic History: Reports: Obesity/BMI 30+ Hematologic History: Reports: Anemia, Anticoagulation Therapy, Blood Transfusion(s) Immunologic History: Reports: None Oncologic (Cancer) History: Reports: None Dermatologic History: Reports: None - Infectious Disease History Infectious Disease History: Reports: Chicken Pox, Measles - Past Surgical History Musculoskeletal Surgical History: Reports: Hip Replacement, ORIF Social & Family History - Family History Family Medical History: No Pertinent Family History - Caffeine Use Caffeine Use: Reports: Coffee, Tea - Living Situation & Occupation Living situation: Reports: Occupation: Retired ED ROS GENERAL - Review of Systems Review Of Systems: See Below Constitutional: Reports: Malaise HEENT: Reports: No Symptoms Respiratory: Reports: No Symptoms Cardiovascular: Reports: Lightheadedness (with standing/sitting) Endocrine: Reports: No Symptoms GI/Abdominal: Reports: No Symptoms : Reports: No Symptoms Musculoskeletal: Reports: No Symptoms Skin: Reports: No Symptoms Neurological: Reports: No Symptoms Psychiatric: Reports: No Symptoms ED EXAM, GENERAL - Physical Exam Exam: See Below Exam Limited By: No Limitations General Appearance: Alert, WD/WN, No Apparent Distress Eye Exam: Bilateral Eye: Normal Inspection Ears: Normal External Exam, Normal Canal, Hearing Loss. No: Hearing Grossly Normal Ear Exam: Bilateral Ear: Auricle Normal, Canal Normal Nose: Normal Inspection, No Blood Throat/Mouth: Normal Inspection, Normal Lips, Normal Oropharynx, Normal Voice, No Airway Compromise Head: Atraumatic, Normocephalic Neck: Normal Inspection Respiratory/Chest: No Respiratory Distress, Lungs Clear, Normal Breath Sounds, No Accessory Muscle Use Cardiovascular: Tachycardia (mild), Irregularly Irregular. No: No Edema GI/Abdominal: Soft, Non-Tender Back Exam: Normal Inspection. No: CVA Tenderness (R), CVA Tenderness (L) Extremities: Normal Range of Motion, Non-Tender, Pedal Edema (1+ bilat). No: Daniel's Sign, Limited Range of Motion, Increased Warmth, Redness Neurological: Alert, Oriented, CN II-XII Intact, Normal Cognition, No Motor/Sensory Deficits Psychiatric: Normal Affect, Normal Mood Skin Exam: Warm, Dry, Intact, Normal Color, No Rash Course - Vital Signs Last Recorded V/S: Last Vital Signs Temp 36.9 C 11/12/20 08:20 Pulse 70 11/12/20 08:20 Resp 13 11/12/20 08:20 BP 108/72 11/12/20 08:20 Pulse Ox 98 11/12/20 08:20 - Orders/Labs/Meds Orders: Active Orders 24 hr Category Date Time Status Cardiac Monitoring [RC] .As Directed Care 11/12/20 08:28 Active Orthostatic Vital Signs [RC] ASDIRECTED Care 11/12/20 10:26 Active CULTURE URINE [RM] Stat Lab 11/12/20 10:23 Ordered Labs: Laboratory Tests 11/12/20 11/12/20 11/12/20 Range/Units 08:50 08:50 08:50 WBC 5.7 (3.0-10.3) x10-3/uL RBC 3.22 L (3.60-5.20) x10(6)uL Hgb 8.9 L D (11.4-15.5) g/dL Hct 28.4 L D (34.2-48.2) % MCV 88.3 (76.7-100.5) fL MCH 27.8 (23.9-33.9) pg MCHC 31.5 L (31.9-34.8) g/dL RDW 21.0 H (12.3-16.5) % Plt Count 277 (151-488) x10(3)uL Sodium 143 (135-145) mmol/L Potassium 4.1 (3.5-5.3) mmol/L Chloride 107 D (100-110) mmol/L Carbon Dioxide 26 (21-32) mmol/L BUN 16 (7-18) mg/dL Creatinine 0.9 (0.55-1.02) mg/dL Est Cr Clr Drug Dosing 34.83 mL/min Estimated GFR (MDRD) 59 L (>60) BUN/Creatinine Ratio 17.8 (9-20) Glucose 104 (80-116) mg/dL Calcium 8.9 (8.6-10.2) mg/dL Troponin I 96.1 H* (4.0-60.3) pg/mL Urine Color (YELLOW) Urine Appearance (CLEAR) Urine pH (5.0-6.5) Ur Specific [place] (1.010-1.025) Urine Protein (NEGATIVE) mg/dL Urine Glucose (UA) (NORMAL) mg/dL Urine Ketones (NEGATIVE) mg/dL Urine Occult Blood (NEGATIVE) Urine Nitrite (NEGATIVE) Urine Bilirubin (NEGATIVE) Urine Urobilinogen (NEGATIVE) mg/dL Ur Leukocyte Esterase (NEGATIVE) Urine RBC (0-5) Urine WBC (0-5) 11/12/20 Range/Units 09:36 WBC (3.0-10.3) x10-3/uL RBC (3.60-5.20) x10(6)uL Hgb (11.4-15.5) g/dL Hct (34.2-48.2) % MCV (76.7-100.5) fL MCH (23.9-33.9) pg MCHC (31.9-34.8) g/dL RDW (12.3-16.5) % Plt Count (151-488) x10(3)uL Sodium (135-145) mmol/L Potassium (3.5-5.3) mmol/L Chloride (100-110) mmol/L Carbon Dioxide (21-32) mmol/L BUN (7-18) mg/dL Creatinine (0.55-1.02) mg/dL Est Cr Clr Drug Dosing mL/min Estimated GFR (MDRD) (>60) BUN/Creatinine Ratio (9-20) Glucose (80-116) mg/dL Calcium (8.6-10.2) mg/dL Troponin I (4.0-60.3) pg/mL Urine Color Yellow (YELLOW) Urine Appearance Slightly cloudy (CLEAR) Urine pH 5.0 (5.0-6.5) Ur Specific [place] 1.015 (1.010-1.025) Urine Protein Negative (NEGATIVE) mg/dL Urine Glucose (UA) Normal (NORMAL) mg/dL Urine Ketones Negative (NEGATIVE) mg/dL Urine Occult Blood Moderate H (NEGATIVE) Urine Nitrite Negative (NEGATIVE) Urine Bilirubin Negative (NEGATIVE) Urine Urobilinogen Normal (NEGATIVE) mg/dL Ur Leukocyte Esterase Large H (NEGATIVE) Urine RBC Packed H (0-5) Urine WBC Packed H (0-5) Meds: Medications Discontinued Medications Generic Name Dose Route Start Last Admin Trade Name Freq PRN Reason Stop Dose Admin Trimethoprim/Sulfamethoxazole 1 tab 11/12/20 10:26 Sulfamethoxazole/Trimethoprim 800-160 Mg Tab PO 11/12/20 10:27 ONETIME ONE Departure - Departure Time of Disposition: 10:55 Disposition: Home, Self-Care 01 Condition: Fair Clinical Impression: Cystitis - Discharge Information *PRESCRIPTION DRUG MONITORING PROGRAM REVIEWED*: Not Applicable *COPY OF PRESCRIPTION DRUG MONITORING REPORT IN PATIENT FAISAL: Not Applicable Instructions: Urinary Tract Infection, Adult, [id number] Referrals: Pawan Elaine MD [Primary Care Provider] - Forms: ED Department Discharge Additional Instructions: Take the TMP/SMZ DS every 12 hrs for 5 days. See your doctor to follow up on your urine culture result in 3 days. Return as needed. Sepsis Event Note (ED) - Focused Exam Vital Signs: Vital Signs Temp Pulse Resp BP Pulse Ox 11/12/20 08:20 36.9 C 70 13 108/72 98 - My Orders Last 24 Hours: My Active Orders 11/12/20 08:28 Cardiac Monitoring [RC] .As Directed 11/12/20 10:23 CULTURE URINE [RM] Stat 11/12/20 10:26 Orthostatic Vital Signs [RC] ASDIRECTED - Assessment/Plan Last 24 Hours: My Active Orders 11/12/20 08:28 Cardiac Monitoring [RC] .As Directed 11/12/20 10:23 CULTURE URINE [RM] Stat 11/12/20 10:26 Orthostatic Vital Signs [RC] ASDIRECTED
== END 2020-11-12 12:15 | disposition home or self-care (01) ==
LOC: FB.ED 08:18
DX: N30.90 Cystitis, unspecified without hematuria (principal); I48.91 Unspecified atrial fibrillation; I11.0 Hypertensive heart disease with heart failure; I50.9 Heart failure, unspecified; E66.9 Obesity, unspecified; Z68.30 Body mass index [BMI] 30.0-30.9, adult; Z79.82 Long term (current) use of aspirin; Z79.899 Other long term (current) drug therapy
CPT/HCPCS: 36415; 80048; 81001; 84484; 85027; 87086; 87186; 99284; A9270

== ENCOUNTER 2021-07-03 13:56 | Emergency (ER) | payer MEDICARE, BC ==
[2021-07-03] MEDS ORDERED: Acetaminophen/HYDROcodone 325-5 MG Tab PO ONE (14:05)
[2021-07-03] MEDS ORDERED: Sodium Chloride 0.9% 1,000 ML IV ONE (14:59)
[2021-07-03 20:33] VITALS: PULSE 70
[2021-07-03 20:40] VITALS: BP 121/55
== END 2021-07-03 17:15 | disposition home or self-care (01) ==
LOC: FB.ED 13:56
DX: M17.0 Bilateral primary osteoarthritis of knee (principal); E87.1 Hypo-osmolality and hyponatremia; I48.91 Unspecified atrial fibrillation; I50.9 Heart failure, unspecified; I10 Essential (primary) hypertension; J45.909 Unspecified asthma, uncomplicated; E66.9 Obesity, unspecified; Z68.28 Body mass index [BMI] 28.0-28.9, adult; Z79.899 Other long term (current) drug therapy; Z79.82 Long term (current) use of aspirin
CPT/HCPCS: 36415; 80048; 81001; 84484; 85027; 96360; 99284-25; A9270-GY; J7030

== ENCOUNTER 2021-10-30 14:32 | Inpatient (IN) | payer MEDICARE, BC ==
[2021-10-30] MEDS ORDERED: Ondansetron 4 MG/2 ML SDV IVPUSH ONE ×2 (14:37→15:28)
[2021-10-30] MEDS: Sodium Chloride 0.9% 10 ML Syringe FLUSH PRN (15:00)
[2021-10-30 15:10] LABS: ESTIMATED GFR 44 mL/min (>60)
[2021-10-30] MEDS ORDERED: Metoclopramide 10 MG/2 ML SDV IVPUSH ONE (16:13)
[2021-10-30] MEDS ORDERED: Iopamidol 755 Mg/ML 75 ML Bottle IV ONE (17:31)
[2021-10-30] MEDS: Sodium Chloride 0.9% 1,000 ML IV SCH (19:15)
[2021-10-31] MEDS: Metoclopramide 10 MG/2 ML SDV IVPUSH SCH ×4 (00:41→23:01)
[2021-10-31] MEDS: Enoxaparin 40 MG/0.4 ML Syringe SUBCUT SCH ×2 (00:41→20:25)
[2021-10-31] MEDS: Sodium Chloride 0.9% 1,000 ML IV SCH ×2 (05:30→22:25)
[2021-10-31 07:08] LABS: ESTIMATED GFR 61 mL/min (>60)
[2021-10-31] MEDS: Sodium Chloride 0.9% 10 ML Syringe FLUSH PRN ×2 (08:13→18:27)
[2021-10-31] MEDS ORDERED: Ondansetron 4 MG/2 ML SDV IVPUSH PRN (10:09)
[2021-10-31] MEDS ORDERED: Albuterol 90 MCG/6.7 GM Inhaler INH PRN (10:35)
[2021-10-31] MEDS ORDERED: Docusate Sodium 100 MG Cap PO PRN (10:35)
[2021-10-31] MEDS ORDERED: Acetaminophen 325 MG Tab PO PRN (10:35)
[2021-10-31] MEDS: Saccharomyces Boulardii (Probiotic) 250 MG Cap PO SCH ×2 (11:10→20:25)
[2021-10-31] MEDS: Azithromycin 500 MG in Sodium Chloride 0.9% 250 ML IV SCH (11:12)
[2021-10-31] MEDS ORDERED: Digoxin 125 MCG Tab PO SCH (12:00)
[2021-10-31] MEDS: Piperacillin/Tazobactam 3.375 GM in Sodium Chloride 0.9% 50 ML IV SCH ×3 (12:30→23:05)
[2021-10-31] MEDS: FLUTICASONE NAS SCH (12:30)
[2021-10-31] MEDS: Amiodarone 200 MG Tab PO SCH ×2 (12:50→20:25)
[2021-10-31] MEDS: Multivitamin Tab PO SCH (12:50)
[2021-10-31] MEDS: Furosemide 40 MG Tab PO SCH (12:50)
[2021-10-31] MEDS: Celecoxib 200 MG Cap PO SCH ×2 (12:50→20:25)
[2021-10-31] MEDS: Pantoprazole 40 MG Tab.CR PO SCH (12:50)
[2021-10-31] MEDS: Mirtazapine 15 MG Tab PO SCH (20:26)
[2021-10-31] MEDS ORDERED: QUEtiapine 25 MG Tab PO SCH (21:00)
[2021-11-01] MEDS: Piperacillin/Tazobactam 3.375 GM in Sodium Chloride 0.9% 50 ML IV SCH (05:11)
[2021-11-01] MEDS: Pantoprazole 40 MG Tab.CR PO SCH (06:37)
[2021-11-01 06:58] LABS: ESTIMATED GFR 31 mL/min (>60)
[2021-11-01] MEDS ORDERED: Metoclopramide 10 MG/2 ML SDV IVPUSH PRN (07:28)
[2021-11-01] MEDS: Digoxin 125 MCG Tab PO SCH (08:52)
[2021-11-01] MEDS: Saccharomyces Boulardii (Probiotic) 250 MG Cap PO SCH ×2 (08:52→21:42)
[2021-11-01] MEDS: FLUTICASONE NAS SCH (08:52)
[2021-11-01] MEDS: Amiodarone 200 MG Tab PO SCH ×2 (08:52→21:42)
[2021-11-01] MEDS: Celecoxib 200 MG Cap PO SCH ×2 (08:52→21:42)
[2021-11-01] MEDS: Furosemide 40 MG Tab PO SCH (08:52)
[2021-11-01] MEDS: Multivitamin Tab PO SCH (08:53)
[2021-11-01] MEDS ORDERED: Potassium Chloride 10 MEQ Tab.ER PO SCH (09:00)
[2021-11-01] MEDS: Sodium Chloride 0.9% 1,000 ML IV SCH ×2 (09:14→17:50)
[2021-11-01] MEDS: Azithromycin 500 MG in Sodium Chloride 0.9% 250 ML IV SCH (10:10)
[2021-11-01] MEDS: Meropenem 1 GM SDV IVPUSH SCH (16:03)
[2021-11-01] MEDS: Enoxaparin 40 MG/0.4 ML Syringe SUBCUT SCH (21:42)
[2021-11-01] MEDS: Mirtazapine 15 MG Tab PO SCH (21:42)
[2021-11-02] MEDS: Meropenem 1 GM SDV IVPUSH SCH (04:03)
[2021-11-02] MEDS: Sodium Chloride 0.9% 1,000 ML IV SCH (05:40)
[2021-11-02 07:18] LABS: ESTIMATED GFR 27 mL/min (>60)
[2021-11-02] MEDS ORDERED: OMEPRAZOLE 40 MG PO SCH (09:00)
[2021-11-02] MEDS ORDERED: Potassium Chloride 20 MEQ Tab.ER *PTOM PO SCH (09:00)
[2021-11-02] MEDS ORDERED: FLUTICASONE NASBOTH SCH (09:00)
[2021-11-02] MEDS ORDERED: Pantoprazole 40 MG Tab.CR PO SCH (09:00)
[2021-11-02] MEDS ORDERED: Potassium Chloride 10 MEQ Tab.ER PO SCH (09:00)
[2021-11-02] MEDS: Multivitamin Tab PO SCH (09:44)
[2021-11-02] MEDS: Celecoxib 200 MG Cap PO SCH (09:44)
[2021-11-02] MEDS: Digoxin 125 MCG Tab PO SCH (09:44)
[2021-11-02] MEDS: Fluticasone NASAL Spray 16 GM Bottle NASBOTH SCH (09:44)
[2021-11-02] MEDS: Furosemide 40 MG Tab PO SCH (09:45)
[2021-11-02] MEDS: Amiodarone 200 MG Tab PO SCH (09:45)
[2021-11-02] MEDS: Saccharomyces Boulardii (Probiotic) 250 MG Cap PO SCH (09:45)
[2021-11-02] MEDS ORDERED: LORazepam 0.5 MG Tab PO PRN (09:53)
[2021-11-02] MEDS ORDERED: Hyoscyamine 0.125 MG Tab.SL SL PRN (09:55)
[2021-11-02] MEDS ORDERED: Morphine 10 MG/0.5 ML Oral Syringe SL PRN (10:26)
[2021-11-02] MEDS ORDERED: Albuterol 90 MCG/6.7 GM Inhaler INH PRN (10:57)
[2021-11-03] MEDS: Pantoprazole 40 MG Tab.CR PO SCH (07:00)
[2021-11-03] MEDS: Fluticasone NASAL Spray 16 GM Bottle NASBOTH SCH (08:44)
[2021-11-04 08:03] VITALS: BP 132/70; PULSE 82
[2021-11-04] MEDS: Fluticasone NASAL Spray 16 GM Bottle NASBOTH SCH (08:09)
== END 2021-11-04 10:10 | disposition hospice, home (50) | DRG 178 ==
LOC: FB.ED 14:32 → FB.MS 19:11 → OBSVTOIN 11-02 08:12
PROVIDERS: ADMIT Student in an Organized Health Care Education/Training Program; ATTEND Student in an Organized Health Care Education/Training Program
DX: J18.9 Pneumonia, unspecified organism (principal); J69.0 Pneumonitis due to inhalation of food and vomit; R53.1 Weakness; I24.9 Acute ischemic heart disease, unspecified; G93.40 Encephalopathy, unspecified; N17.9 Acute kidney failure, unspecified; W19.XXXA Unspecified fall, initial encounter; I48.92 Unspecified atrial flutter; E86.0 Dehydration; Z20.822 Contact with and (suspected) exposure to COVID-19; Z51.5 Encounter for palliative care; R93.5 Abnormal findings on diagnostic imaging of other abdominal regions, including retroperitoneum; E66.9 Obesity, unspecified; I50.9 Heart failure, unspecified; K75.9 Inflammatory liver disease, unspecified; I48.91 Unspecified atrial fibrillation; R74.8 Abnormal levels of other serum enzymes; J45.909 Unspecified asthma, uncomplicated; H91.90 Unspecified hearing loss, unspecified ear; D72.89 Other specified disorders of white blood cells; J44.0 Chronic obstructive pulmonary disease with (acute) lower respiratory infection; M54.9 Dorsalgia, unspecified; G89.29 Other chronic pain; M19.90 Unspecified osteoarthritis, unspecified site; R77.8 Other specified abnormalities of plasma proteins; J44.9 Chronic obstructive pulmonary disease, unspecified; I11.0 Hypertensive heart disease with heart failure; Z96.642 Presence of left artificial hip joint; H54.7 Unspecified visual loss; Z87.440 Personal history of urinary (tract) infections; Z79.899 Other long term (current) drug therapy; Z90.49 Acquired absence of other specified parts of digestive tract; Z90.710 Acquired absence of both cervix and uterus; Z79.01 Long term (current) use of anticoagulants
CPT/HCPCS: 36415; 70450; 71045; 74177; 80053; 80162; 81001; 82140; 82150; 83605; 83690; 83880; 84484; 85025; 85610; 86140; 87040; 93005; 93010; 96361; 96365; 96366; 96367; 96372; 96374; 96375; 96376; 99220; 99226; 99233; 99238; 99285; 99285-25; A9270-GY; G0378; J0456; J1650; J2185; J2405; J2543; J2765; J3490; J7030; J7050; Q9967; U0002